=== PATIENT | female | born 2000 | race Caucasian/White ===

== ENCOUNTER 2019-01-28 15:35 | Emergency (ER) | payer SELFPAY ==
--- NOTE | 2019-01-28 16:28 | EDPHYS ---
Physician Documentation [facility] Name: Joana Aguirre Age: 19 yrs Sex: Female : 2000 Arrival Date: 01/28/2019 Time: 15:38 Bed DIS1 Private MD: ED Physician Andrea Mcgrath HPI: 01/28 16:26 This 19 yrs old Female presents to ER via Ambulatory with complaints of pm1 Insect Bite. 16:26 The patient's rash thought to be caused by insect bites. The rash is located on the pm1 right calf. The rash can be described as raised. Onset: The symptoms/episode began/occurred just prior to arrival. Associated signs and symptoms: Pertinent positives: burning sensation, Pain Pertinent negatives: difficulty breathing, fever, itching, nausea, swelling of lips, swelling of throat, swelling of tongue, vomiting, wheezing. Severity of symptoms: in the emergency department the symptoms have improved markedly. Treatment given at home: None. The patient has not experienced similar symptoms in the past. It is unknown whether or not the patient has recently seen a physician. Presenting with friend that was also bitten by asp. 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 - Social history:: Smoking status: Patient/guardian denies using tobacco. - Ebola Screening: : Patient negative for fever greater than or equal to 101.5 degrees Fahrenheit, and additional compatible Ebola Virus Disease symptoms Patient denies exposure to infectious person Patient denies travel to an Ebola-affected area in the 21 days before illness onset No symptoms or risks identified at this time. ROS: 16:26 Constitutional: Negative for fever, chills, and weight loss, Eyes: Negative for injury, pm1 pain, redness, and discharge, ENT: Negative for injury, pain, and discharge, Neck: Negative for injury, pain, and swelling, Cardiovascular: Negative for chest pain, palpitations, and edema, Respiratory: Negative for shortness of breath, cough, wheezing, and pleuritic chest pain, Abdomen/GI: Negative for abdominal pain, nausea, vomiting, diarrhea, and constipation, Back: Negative for injury and pain, MS/Extremity: Negative for injury and deformity. 16:26 Neuro: Negative for headache, weakness, numbness, tingling, and seizure. 16:26 Skin: Positive for rash, of the right calf, Negative for cellulitis. Exam: 16:26 Constitutional: This is a well developed, well nourished patient who is awake, alert, pm1 and in no acute distress. Head/Face: Normocephalic, atraumatic. Eyes: Pupils equal round and reactive to light, extra-ocular motions intact. Lids and lashes normal. Conjunctiva and sclera are non-icteric and not injected. Cornea within normal limits. Periorbital areas with no swelling, redness, or edema. ENT: Nares patent. No nasal discharge, no septal abnormalities noted. Tympanic membranes are normal and external auditory canals are clear. Oropharynx with no redness, swelling, or masses, exudates, or evidence of obstruction, uvula midline. Mucous membranes moist. Neck: Trachea midline, no thyromegaly or masses palpated, and no cervical lymphadenopathy. Supple, full range of motion without nuchal rigidity, or vertebral point tenderness. No Meningismus. Chest/axilla: Normal chest wall appearance and motion. Nontender with no deformity. No lesions are appreciated. Cardiovascular: Regular rate and rhythm with a normal S1 and S2. No gallops, murmurs, or rubs. Normal PMI, no JVD. No pulse deficits. Respiratory: Lungs have equal breath sounds bilaterally, clear to auscultation and percussion. No rales, rhonchi or wheezes noted. No increased work of breathing, no retractions or nasal flaring. Back: No spinal tenderness. No costovertebral tenderness. Full range of motion. 16:26 MS/ Extremity: Pulses equal, no cyanosis. Neurovascular intact. Full, normal range of motion. 16:26 Skin: Appearance: normal except for affected area, lesion(s), probable a wheal is noted, located on the right calf. 16:26 Neuro: Orientation: is normal, Motor: is normal, moves all fours. Vital Signs: 15:53 BP 112 / 78; Pulse 78; Resp 18; Temp 98.2; Pulse Ox 100% ; Pain 4/10; sg MDM: 16:22 Patient medically screened. pm1 16:26 Data reviewed: vital signs. Data interpreted: Pulse oximetry: on room air is 100 %. pm1 Interpretation: normal. Counseling: I had a detailed discussion with the patient and/or guardian regarding: the historical points, exam findings, and any diagnostic results supporting the discharge/admit diagnosis, to return to the emergency department if symptoms worsen or persist or if there are any questions or concerns that arise at home. Administered Medications: No medications were administered Disposition: 01/29 09:07 Co-signature as Attending Physician, Andrea Mcgrath MD I agree with the assessment and kdr plan of care. Disposition: 01/28/19 16:27 Discharged to Home. Impression: Insect bite (nonvenomous), right lower leg. - Condition is Stable. - Discharge Instructions: Insect Bite. - Medication Reconciliation Form, Thank You Letter, Antibiotic Education, Prescription Opioid Use form. - Follow up: Emergency Department; When: As needed; Reason: Worsening of condition. Follow up: Private Physician; When: 2 - 3 days; Reason: Recheck today's complaints, Continuance of care, Re-evaluation by your physician. - Problem is new. - Symptoms have improved. Signatures: Fredy Garza RN RN sg Andrea Mcgrath MD MD kdr Rachelle Murray RN RN iw Marlon Krishnan NP EMAIL MARKETING INTERN pm1 Corrections: (The following items were deleted from the chart) 01/28 16:33 16:27 01/28/2019 16:27 Discharged to Home. Impression: Insect bite (nonvenomous), right iw lower leg. Condition is Stable. Forms are Medication Reconciliation Form, Thank You Letter, Antibiotic Education, Prescription Opioid Use. Follow up: Emergency Department; When: As needed; Reason: Worsening of condition. Follow up: Private Physician; When: 2 - 3 days; Reason: Recheck today's complaints, Continuance of care, Re-evaluation by your physician. Problem is new. Symptoms have improved. pm1
--- NOTE | 2019-01-28 16:28 | ER ---
Nurse's Notes [facility] Name: Joana Aguirre Age: 19 yrs Sex: Female : 2000 Arrival Date: 01/28/2019 Time: 15:38 Bed DIS1 Private MD: Diagnosis: Insect bite (nonvenomous), right lower leg Presentation: 01/28 15:38 Presenting complaint: Patient states: I think I was stung by an Asp too, I have pain sg and burning but I did not see the bug. Transition of care: patient was not received from another setting of care. Onset of symptoms was January 28, 2019. Risk Assessment: Do you want to hurt yourself or someone else? Patient reports no desire to harm self or others. Initial Sepsis Screen: Does the patient meet any 2 criteria? No. Patient's initial sepsis screen is negative. Does the patient have a suspected source of infection? No. Patient's initial sepsis screen is negative. Care prior to arrival: None. 15:38 Method Of Arrival: Ambulatory sg 15:38 Acuity: RICH 4 sg 15:54 Note pain to right calf. 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 - Social history:: Smoking status: Patient/guardian denies using tobacco. - Ebola Screening: : Patient negative for fever greater than or equal to 101.5 degrees Fahrenheit, and additional compatible Ebola Virus Disease symptoms Patient denies exposure to infectious person Patient denies travel to an Ebola-affected area in the 21 days before illness onset No symptoms or risks identified at this time. Screenin:10 Abuse screen: Denies threats or abuse. Denies injuries from another. Nutritional iw screening: No deficits noted. Tuberculosis screening: No symptoms or risk factors identified. Fall Risk None identified. Assessment: 16:10 General: Appears in no apparent distress. Behavior is calm, cooperative. Pain: Denies iw pain. Neuro: Level of Consciousness is awake, alert, obeys commands, Oriented to person, place, time, situation, Moves all extremities. Full function. Cardiovascular: Patient's skin is warm and dry. Respiratory: Respiratory effort is even, unlabored, Respiratory pattern is regular, symmetrical. Derm: Skin is intact, is healthy with good turgor, Skin is pink, warm \T\ dry. normal. Musculoskeletal: Range of motion: intact in all extremities. Vital Signs: 15:53 BP 112 / 78; Pulse 78; Resp 18; Temp 98.2; Pulse Ox 100% ; Pain 4/10; sg ED Course: 15:38 Patient arrived in ED. mr 15:39 Triage completed. sg 15:39 Arm band placed on. sg 15:40 Patient has correct armband on for positive identification. iw 15:51 Rachelle Murray RN is Primary Nurse. 15:53 Chip Prater PA is PHCP. [facility] 15:53 Andrea Mcgrath MD is Attending Physician. [facility] 16:10 No provider procedures requiring assistance completed. Patient did not have IV access iw during this emergency room visit. 16:11 PHCP role handed off by Chip Prater PA pm1 16:11 Marlon Krishnan NP is PHCP. pm1 Administered Medications: No medications were administered Outcome: 16:27 Discharge ordered by MD. pm1 16:32 Discharged to home ambulatory, with family. iw 16:32 Condition: good 16:32 Discharge instructions given to patient, Instructed on discharge instructions, follow up and referral plans. Demonstrated understanding of instructions, follow-up care. 16:33 Patient left the ED. iw Signatures: Fredy Garza RN RN Chip Prater PA PA [facility] DavidMarsha Racehlle Murray RN RN Marlon Krishnan NP BAR HOSTESS pm1
[2019-01-28 18:32] VITALS: BP 112/78; TEMP 98.2; O2SAT 100
== END 2019-01-28 16:33 | disposition home or self-care (01) ==
LOC: ER 15:35
DX: S80.861A Insect bite (nonvenomous), right lower leg, initial encounter (principal)
CPT/HCPCS: 99281

== ENCOUNTER 2019-03-28 23:52 | Emergency (ER) | payer SELFPAY ==
--- OUTSIDE RECORDS SUMMARY | 2019-03-28 23:55 | XMS REPORT ---
:2000 [facility] Address [address] [place] [address] Care Team Providers Name Role Phone UNKNOWN, REFFERING Primary Care Provider Unavailable SVETLANA ELIZALDE Unavailable Unavailable Problems This patient has no known problems. Allergies, Adverse Reactions, Alerts This patient has no known allergies or adverse reactions. Medications This patient has no known medications. Encounters Start End Encounter Admission Attending Care Care Encounter Date/Time Date/Time Type Type Clinicians Facility Department ID 2018-08-09 2018-08-[address] [facility] [id number] 20:42:00 20:42:00 2018-08-09 2018-08-09 Emergency [facility] [id number] 14:50:00 14:50:00 2017-11-02 2017-11-[address] [facility] [id number] 13:39:00 13:39:00 2016-11-13 2016-11-13 Emergency [facility] [id number] 12:25:00 12:25:00 2012-03-03 2012-03-03 Outpatient [facility] [id number] 07:35:53 07:35:53 Results Test Description Test Time Test Comments Text Results Atomic Results Result Comments CT Abdomen and Pelvis 2017-07-27 10:21:19 Patient: [facility] [place] w/ Contrast Date/Time07/27/2017 10:00 CDTReason for ExamAbdominal painReportCT OF THE ABDOMEN AND PELVIS WITH CONTRASTLocation R 16HISTORY: Abdominal painTECHNIQUE:5 millimeters contrast enhanced axial images of the abdomen and pelvis provided in venous delays. No PO contrast was administered. The images were reviewed in soft tissue, lung and bone windows. Sagittal and coronal images were reformatted. One or more the following dose reduction techniques is utilized: Use of iterative reconstruction, automated exposure control, adjustment of the mAs and Kv for the patient's weight. DLP 514.1mGy-cm. Estimated dose savings 29%.COMPARISON: None.CT abdomen and pelvis dated 10/13/2017FINDINGS:Lung Bases: No significant abnormality.Abdomen findings:Liver: No significant abnormality.Gallbladder: No significant abnormality.Pancreas: No significant abnormality.Spleen: No significant abnormality.Kidneys: No significant abnormality.Adrenals: No significant abnormality.Bowel: No significant abnormality. No dilated bowel loops or areas of bowel wall thickening.Appendix: Well identified and normal.Pelvis findings:Bladder: No significant abnormality.Uterus: No significant abnormality.Adnexal regions: No significant abnormality.Osseous: Note of a partially sacralized L5 on the right. Osseous structures are otherwise unremarkable. Vascular: Vascular structures enhance normally.Lymph nodes: No evidence of lymphadenopathy in the abdomen and pelvis.IMPRESSION:Exam Date/Time07/27/2017 10:00 CDTReportNo acute intra-abdominal findings. Normal right lower quadrant appendix. No free air or free fluid. Final Dictated by: MD Amira, Radha FDictated DT/TM: 07/27/2017 10:16 amSigned by: MD Collier Eniola FSigned (Electronic Signature): 07/27/2017 10:21 am [id number]&PELVIS W/CONTRAST 2016-10-13 06:43:42 CT OF THE ABDOMEN AND PELVIS WITH CONTRASTHISTORY: PainTECHNIQUE:5 millimeters contrast enhanced axial images of the abdomen and pelviswere performed with venous delays. The images were reviewed in softtissue, lung and bone windows. 2 mm coronal images were reformatted. 100mL of Isovue 370 is given IV. The GFR is greater than 60COMPARISON: CT abdomen pelvis, 10/04/2016FINDINGS:Abdomen findings: The liver, adrenals, spleen, pancreas, gallbladder, kidneys and lungwindows are unremarkable.Pelvis findings: The distal ureters, bladder , uterus, adnexa , appendix andremainder of the bowel are unremarkable. Bone windows are normal.IMPRESSION:Unremarkable exam. No acute findings. Urinalysis Complete 2016-10-13 05:48:00 Test Item Value Reference Range Comments Color (test code=COLOR) [place] Yellow,Straw,Pl yellow Clarity (test code=CLAR) Clear Clear Specific [place] (test code=SPGR) 1.032 1.001-1.035 pH (test code=PH) 5.0 5.0-9.0 Ketone (test code=KET) 5 mg/dL Negative Glucose (test code=GLUCUR) Negative mg/dL Negative Protein (test code=PROT) 75 mg/dL Negative Bilirubin (test code=BILI) See IctoTest mg/dL Negative Occult Blood (test code=UDOB) Large Negative Urobilinogen (test code=UROB) 1.0 mg/dL 0.2-1.0 Nitrite (test code=NIT) Negative Negative Leuk Esterase (test code=LEUK) Small Negative Ictotest (test code=ICTOTEST) Confirmed Negative Negative,Confirmed Negative Micros Exam (test code=MEXAM) Indicated Epithelial Cells (test code=EPI) 15-19 /LPF 0-30 WBC, Urine (test code=UWBC) 2-5 /HPF 0-5 RBC, Urine (test code=URBC) None Seen /HPF 0-5 Bacteria (test code=BACT) Few /HPF CBC with [id number] 05:42:00 Test Item Value Reference Range Comments WBC (test code=WBC) 7.1 K/cumm 4.4-10.5 RBC (test code=RBC) 4.36 M/cumm 3.75-5.20 Hemoglobin (test code=HGB) 12.8 gm/dL 12.2-14.8 Hematocrit (test code=HCT) 38.2 % 36.5-44.4 MCV (test code=MCV) 87.7 fL 80-100 MCH (test code=MCH) 29.4 pg 27.0-32.5 MCHC (test code=MCHC) 33.5 g/dL 32.0-37.5 RDW (test code=RDW) 14.6 % 11.5-14.5 Platelet Count (test code=PLTCT) 269 K/cumm 140-440 MPV (test code=MPV) 8.4 fL Diff Method (test code=DIFFM) Auto Neutrophil (test code=NEUT) 51.1 % 36-70 Lymphocyte (test code=LYMPH) 36.0 % 12-44 Monocyte (test code=MONO) 9.0 % 0-11 Eosinophil (test code=EOS) 3.3 % 0-7 Basophil (test code=BASO) 0.5 % 0-2 Neutro Abs (test code=ANEUT) 3.6 K/cumm 1.6-7.4 Lymph Abs (test code=ALYMPH) 2.6 K/cumm 0.5-4.6 Vermillion Abs (test code=AMONO) 0.6 K/cumm 0.0-1.2 Eos Abs (test code=AEOS) 0.24 K/cumm 0.00-0.74 Baso Abs (test code=ABASO) 0.0 K/cumm 0.00-0.21 BHCG, Serum, [id number] 05:28:00 Test Item Value Reference Range Comments Preg Qual [Se] (test code=BSHCG) Negative Negative Comprehensive Metabolic [id number] 05:28:00 Test Item Value Reference Range Comments Sodium (test code=NA) 141 mmol/L 135-145 Potassium (test code=K) 3.8 mmol/L 3.5-5.1 Chloride (test code=CL) 104 mmol/L 98-105 Carbon Dioxide (test 22 mmol/L 22-29 code=CO2) Glucose (test code=GLU) 86 mg/dL 70-115 Blood Urea Nitrogen 17 mg/dL 6-20 (test code=BUN) Creatinine (test 0.9 mg/dL 0.5-0.9 code=CREAT) Calcium (test code=CA) 9.2 mg/dL 8.3-10.5 Prot Total (test 7.6 g/dL 6.4-8.3 code=TP) Albumin (test code=ALB) 4.4 g/dL 3.5-5.2 A/G Ratio (test 1.4 Ratio code=AGRATIO) Globulin (test 3.2 2.9-3.1 code=GLOB) Bili Total (test 0.5 mg/dL 0.1-0.9 code=TBIL) Alk Phos (test 48 U/L 35-104 code=APHOS) AST (test code=AST) 17 U/L 1-32 ALT (test code=ALT) 15 U/L 1-33 BUN/Creatinine Ratio 18.9 (test code=BCRATIO) Anion Gap (test 15 mmol/L 7-16 code=AGAP) Estimated GFR (test >60 mL/min/1.73m2 eGFR (estimated Glomerular code=GFR) Filtration Rate) is an estimated value,calculated from the patient's serum creatinine using the MDRD equation.It is NOT the patient's actual GFR. The eGFR provides a more clinicallyuseful measure of kidney disease than serum creatinine alone.This calculation takes sex and race into account, if the informationis provided. If the race is not provided, and the patient isAfrican-Libyan, multiply by 1.212. If sex is not provided, and thepatient is female, multiply by 0.742. Results for patients <18 years ofage have not been validated by the MDRD study and should be interpretedwith caution.eGFR Result Interpretation:eGFR > or=60 is in the Normal RangeeGFR < 60 may mean kidney diseaseeGFR < 15 may mean kidney failureRanges recommended by the National Kidney Foundation,http://nkdep.nih .gov [id number] 05:24:00 Test Item Value Reference Range Comments Lipase (test code=LIP) 25 U/L 13-60 09732& PELVIS W/O [id number] 20:05:31LOCATION: S 17HISTORY: 16-year -old female who presents with abdominal pain.COMMENT: Axial CT imaging of this patient's abdomen and pelvis was obtained fromthe diaphragm to the pelvic floor withoutIV contrast. Coronal andsagittal soft tissue reconstructions were included. One or more of the following dose reduction techniques were used: Automated exposure control, adjustment of the mA and/or kV according thepatient size, and/or utilization of iterative reconstruction technique.DLP: 851.9 mGy- cmCONTRAST: NoneFINDINGS:The visualized lung bases are clear. The cardiac silhouette isunremarkable.The liver, spleen, pancreas, adrenal glands, kidneys, and gallbladderare unremarkable in this unenhanced CT study.The upper intestinal tract down the small intestine are unremarkable. Anormal-appearing appendix is seen. The colon is unremarkable.There is no ascites or adenopathy present in the abdomen or in thepelvis.In the pelvis the left ovary is enlarged and cystic measuring 5 cm indiameter. The uterus and right ovary are unremarkable and the urinarybladder is unremarkable.The vascular anatomy is unremarkable.The musculoskeletal anatomy is unremarkable.IMPRESSION:This patient 's left ovary is enlarged and cystic. Pelvic ultrasoundcorrelation is suggested.Otherwise the appearance of this patient's abdomen and pelvis in thisunenhanced CT study is unremarkable.Urinalysis [id number] 19:34:00 Test Item Value Reference Range Comments Color (test code=COLOR) Yellow Yellow,Straw,Pl yellow Clarity (test code=CLAR) Clear Clear Specific [place] (test code=SPGR) 1.023 1.001-1.035 pH (test code=PH) 8.0 5.0-9.0 Ketone (test code=KET) 15 mg/dL Negative Glucose (test code=GLUCUR) Negative mg/dL Negative Protein (test code=PROT) Negative mg/dL Negative Bilirubin (test code=BILI) Negative mg/dL Negative Occult Blood (test code=UDOB) Negative Negative Urobilinogen (test code=UROB) 1.0 mg/dL 0.2-1.0 Nitrite (test code=NIT) Negative Negative Leuk Esterase (test code=LEUK) Small Negative Micros Exam (test code=MEXAM) Indicated Epithelial Cells (test code=EPI) 10-14 /LPF 0-30 WBC, Urine (test code=UWBC) 0-1 /HPF 0-5 RBC, Urine (test code=URBC) None Seen /HPF 0-5 Bacteria (test code=BACT) Few /HPF Comprehensive Metabolic [id number] 19:16:00 Test Item Value Reference Range Comments Sodium (test code=NA) 138 mmol/L 135-145 Potassium (test code=K) 4.4 mmol/L 3.5-5.1 HEMOLYZED Chloride (test code=CL) 105 mmol/L 98-105 Carbon Dioxide (test 18 mmol/L 22-29 code=CO2) Glucose (test code=GLU) 78 mg/dL 70-115 Blood Urea Nitrogen 11 mg/dL 6-20 (test code=BUN) Creatinine (test 0.7 mg/dL 0.5-0.9 code=CREAT) Calcium (test code=CA) 8.8 mg/dL 8.3-10.5 Prot Total (test 6.9 g/dL 6.4-8.3 code=TP) Albumin (test code=ALB) 4.2 g/dL 3.5-5.2 A/G Ratio (test 1.6 Ratio code=AGRATIO) Globulin (test 2.7 2.9-3.1 code=GLOB) Bili Total (test 0.5 mg/dL 0.1-0.9 code=TBIL) Alk Phos (test 41 U/L 35-104 code=APHOS) AST (test code=AST) 33 U/L 1-32 HEMOLYZED ALT (test code=ALT) 20 U/L 1-33 BUN/Creatinine Ratio 15.7 (test code=BCRATIO) Anion Gap (test 15 mmol/L 7-16 code=AGAP) Estimated GFR (test >60 mL/min/1.73m2 eGFR (estimated Glomerular code=GFR) Filtration Rate) is an estimated value,calculated from the patient's serum creatinine using the MDRD equation.It is NOT the patient's actual GFR. The eGFR provides a more clinicallyuseful measure of kidney disease than serum creatinine alone.This calculation takes sex and race into account, if the informationis provided. If the race is not provided, and the patient isAfrican-Libyan, multiply by 1.212. If sex is not provided, and thepatient is female, multiply by 0.742. Results for patients <18 years ofage have not been validated by the MDRD study and should be interpretedwith caution.eGFR Result Interpretation:eGFR > or=60 is in the Normal RangeeGFR < 60 may mean kidney diseaseeGFR < 15 may mean kidney failureRanges recommended by the National Kidney Foundation,http://nkdep.nih .gov [id number] 19:16:00 Test Item Value Reference Range Comments Lipase (test code=LIP) 24 U/L 13-60 BHCG, Serum, [id number] 19:10:00 Test Item Value Reference Range Comments Preg Qual [Se] (test code=BSHCG) Negative Negative CBC with [id number] 18:53:00 Test Item Value Reference Range Comments WBC (test code=WBC) 8.1 K/cumm 4.4-10.5 RBC (test code=RBC) 4.00 M/cumm 3.75-5.20 Hemoglobin (test code=HGB) 12.3 gm/dL 12.2-14.8 Hematocrit (test code=HCT) 34.4 % 36.5-44.4 MCV (test code=MCV) 86.1 fL 80-100 MCH (test code=MCH) 30.7 pg 27.0-32.5 MCHC (test code=MCHC) 35.6 g/dL 32.0-37.5 RDW (test code=RDW) 12.8 % 11.5-14.5 Platelet Count (test code=PLTCT) 184 K/cumm 140-440 MPV (test code=MPV) 7.8 fL Diff Method (test code=DIFFM) Auto Neutrophil (test code=NEUT) 70.5 % 36-70 Lymphocyte (test code=LYMPH) 22.6 % 12-44 Monocyte (test code=MONO) 4.2 % 0-11 Eosinophil (test code=EOS) 2.4 % 0-7 Basophil (test code=BASO) 0.3 % 0-2 Neutro Abs (test code=ANEUT) 5.7 K/cumm 1.6-7.4 Lymph Abs (test code=ALYMPH) 1.8 K/cumm 0.5-4.6 Vermillion Abs (test code=AMONO) 0.3 K/cumm 0.0-1.2 Eos Abs (test code=AEOS) 0.19 K/cumm 0.00-0.74 Baso Abs (test code=ABASO) 0.0 K/cumm 0.00-0.21 Urinalysis [id number] 18:49:00 Test Item Value Reference Range Comments Color (test code=COLOR) [place] Yellow,Straw,Pl yellow Clarity (test code=CLAR) Sl Cloudy Clear Specific [place] (test 1.012 1.001-1.035 code=SPGR) pH (test code=PH) 5.0 5.0-9.0 Ketone (test code=KET) Negative mg/dL Negative Glucose (test code=GLUCUR) Negative mg/dL Negative Protein (test code=PROT) 75 mg/dL Negative Bilirubin (test code=BILI) See IctoTest mg/dL Negative Occult Blood (test code=UDOB) Large Negative Urobilinogen (test code=UROB) 1.0 mg/dL 0.2-1.0 Nitrite (test code=NIT) Positive Negative Leuk Esterase (test code=LEUK) Large Negative Ictotest (test code=ICTOTEST) Confirmed Negative Negative,Confirmed Negative Micros Exam (test code=MEXAM) Indicated Epithelial Cells (test 3-5 /LPF 0-30 code=EPI) WBC, Urine (test code=UWBC) 31-40 /HPF 0-5 RBC, Urine (test code=URBC) 3-5 /HPF 0-5 Bacteria (test code=BACT) Few /HPF BHCG, Urine, [id number] 18:48:00 Test Item Value Reference Range Comments Preg Qual [Ur] (test code=HUHCG) Negative Negative
[2019-03-29 01:23] LABS: Absolute Lymphocytes (CBC) 2.8 K/uL (0.7-4.9); Basophils % 0.6 % (0-1.3); Lymphocytes % 37.6 % (15.3-44.8); RBC Red Blood Cell Count 4.11 M/uL (3.86-4.86)
[2019-03-29 01:35] LABS: BUN Blood Urea Nitrogen 18 mg/dL (7-18); Bicarbonate 25 mmol/L (21-32); Glucose Level 89 mg/dL (74-106); Potassium 4.2 mmol/L (3.5-5.1); Sodium Level 142 mmol/L (136-145)
[2019-03-29 02:01] LABS: HCG, Quantitative < 1 mIU/mL (1-3)
--- NOTE | 2019-03-29 02:13 | ER ---
Nurse's Notes [facility] [place] Name: Joana Aguirre Age: 19 yrs Sex: Female : 2000 Arrival Date: 03/28/2019 Time: 23:54 Bed 14 Private MD: Diagnosis: Irregular menstruation, unspecified Presentation: 03/28 23:55 Presenting complaint: Patient states: that she was sitting down watching tv and started fc to have severe lower pelvic pain. Went to bathroom and when she wiped she noted blood. Inserted a tampon. Transition of care: patient was not received from another setting of care. Onset of symptoms was March 28, 2019 at 23:45. Risk Assessment: Do you want to hurt yourself or someone else? Patient reports no desire to harm self or others. Initial Sepsis Screen:. Care prior to arrival: None. 23:55 Method Of Arrival: Wheelchair 23:55 Acuity: RICH 3 fc 03/29 00:00 Initial Sepsis Screen: Does the patient meet any 2 criteria? No. Patient's initial jv1 sepsis screen is negative. Does the patient have a suspected source of infection? No. Patient's initial sepsis screen is negative. Triage Assessment: 02:47 General: Behavior is calm, cooperative, appropriate for age. 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 - Coronavirus screen:: The patient has NOT traveled to [place], [place], or [place] in the past 14 days. The patient has NOT had contact with known/suspected case of Coronavirus?. - Social history:: Smoking status: Patient reports the use of cigarette tobacco products, smokes one-half pack cigarettes per day, Patient/guardian denies using alcohol, street drugs. - Ebola Screening: : Patient negative for fever greater than or equal to 101.5 degrees Fahrenheit, and additional compatible Ebola Virus Disease symptoms Patient denies exposure to infectious person Patient denies travel to an Ebola-affected area in the 21 days before illness onset. Screenin:11 Abuse screen: Denies threats or abuse. Nutritional screening: No deficits noted. fc Tuberculosis screening: No symptoms or risk factors identified. Fall Risk None identified. Assessment: 00:15 General: Appears in no apparent distress. uncomfortable, unkempt. Pain: Complains of jv1 pain in suprapubic area Pain does not radiate. Pain currently is 10 out of 10 on a pain scale. Quality of pain is described as aching, Pain began 3 hours ago. Neuro: Level of Consciousness is awake, alert, obeys commands, Oriented to person, place, time, situation. Cardiovascular: Denies chest pain, Heart tones S1 S2 Capillary refill < 3 seconds Pulses are all present. Respiratory: Airway is patent Breath sounds are clear bilaterally. GI: Abdomen is round non-distended, Bowel sounds present X 4 quads. Abd is soft and non tender. : Urine is clear, Reports vaginal bleeding that is moderate flow. EENT: No signs and/or symptoms were reported regarding the EENT system. Derm: Skin is intact, is healthy with good turgor. 01:30 Reassessment: Patient appears in no apparent distress at this time. Patient and/or jv1 family updated on plan of care and expected duration. Pain level reassessed. Patient is alert, oriented x 3, equal unlabored respirations, skin warm/dry/pink. pt calm, not crying anymore, conversing with family. Vital Signs: 03/28 23:55 Temp 97.8; Weight 83.01 kg (R); Height 5 ft. 4 in. (162.56 cm) (R); Pain 10/10; fc 23:55 BP 126 / 79; Pulse 61; Resp 20; Temp 97.8; Pulse Ox 99% ; Pain 10/; jv1 03/29 01:00 BP 115 / 75; Pulse 65; Resp 18; Temp 98; Pulse Ox 99% ; Pain 10/; jv1 02:00 BP 125 / 75; Pulse 68; Resp 18; Temp 98; Pulse Ox 99% ; Pain 10/; jv1 02:30 BP 118 / 60; Pulse 65; Resp 18; Temp 98; Pulse Ox 99% ; Pain 03/02; jv1 03/28 23:55 Body Mass Index 31.41 (83.01 kg, 162.56 cm) ED Course: 03/28 23:54 Patient arrived in ED. ag3 23:55 Arm band placed on Patient placed in an exam room, on a stretcher. fc 23:58 Stephanie Pierson FNP-C is [facility]. kb 23:58 Evan Toribio MD is Attending Physician. kb 03/29 00:10 Triage completed. fc 00:11 Patient has correct armband on for positive identification. Placed in gown. Bed in low fc position. Call light in reach. Pulse ox on. NIBP on. 02:47 No provider procedures requiring assistance completed. IV discontinued, intact, jv1 bleeding controlled, No redness/swelling at site. Pressure dressing applied. Administered Medications: 02:15 Drug: Zofran 4 mg Route: IVP; Site: right antecubital; jv1 02:46 Follow up: Response: No adverse reaction jv1 02:18 Drug: morphine 4 mg {Note: rass 0.} Route: IVP; Site: right antecubital; jv1 02:46 Follow up: Response: No adverse reaction; Pain is decreased jv1 Outcome: 02:12 Discharge ordered by . kb 02:48 Discharged to home ambulatory, with family, with significant other. jv1 02:48 Condition: improved 02:48 Discharge instructions given to patient, family, significant other, Instructed on discharge instructions, follow up and referral plans. medication usage, Demonstrated understanding of instructions, follow-up care, medications, Prescriptions given X 1. 02:50 Patient left the ED. jv1 Signatures: Stephanie Pierson FNP-C FNP-Ckb Chretien, Felicia RN RN Alyse Paris RN RN jv1 Nancy Stoddard ag3
--- NOTE | 2019-03-29 02:14 | EDPHYS ---
Physician Documentation [facility] Name: Joana Aguirre Age: 19 yrs Sex: Female : 2000 Arrival Date: 03/28/2019 Time: 23:54 Bed 14 Private MD: ED Physician Evan Toribio HPI: 03/29 00:07 This 19 yrs old Female presents to ER via Unassigned with complaints of kb Vaginal Bleeding. 00:07 The patient presents to the emergency department with abdominal pain, of the suprapubic kb area, that started 30 minute(s) ago, vaginal bleeding, that is moderate. course: care: none, Leakage of Fluid: none appreciated, Ultrasound: the patient has not had an ultrasound, Risk/complications: no obvious risks or complications are appreciated. Previous pregnancies: in previous pregnancies patient has had. Associated signs and symptoms: Pertinent positives: abdominal pain, vaginal bleeding, Pertinent negatives: chest pain, diarrhea, dysuria, fever, frequency, nausea, ruptured membranes, seizure, shortness of breath, vaginal discharge, vomiting. The patient has not experienced similar symptoms in the past. The patient has not recently seen a physician. 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 - Coronavirus screen:: The patient has NOT traveled to [place], [place], or [place] in the past 14 days. The patient has NOT had contact with known/suspected case of Coronavirus?. - Social history:: Smoking status: Patient reports the use of cigarette tobacco products, smokes one-half pack cigarettes per day, Patient/guardian denies using alcohol, street drugs. - Ebola Screening: : Patient negative for fever greater than or equal to 101.5 degrees Fahrenheit, and additional compatible Ebola Virus Disease symptoms Patient denies exposure to infectious person Patient denies travel to an Ebola-affected area in the 21 days before illness onset. ROS: 00:07 Constitutional: Negative for fever, chills, and weight loss, ENT: Negative for injury, kb pain, and discharge, Neck: Negative for injury, pain, and swelling, Cardiovascular: Negative for chest pain, palpitations, and edema, Respiratory: Negative for shortness of breath, cough, wheezing, and pleuritic chest pain, Back: Negative for injury and pain, MS/Extremity: Negative for injury and deformity, Skin: Negative for injury, rash, and discoloration, Neuro: Negative for headache, weakness, numbness, tingling, and seizure. 00:07 Abdomen/GI: Positive for abdominal pain. 00:07 : Positive for vaginal bleeding. Exam: 00:07 Constitutional: This is a well developed, well nourished patient who is awake, alert, kb and in no acute distress. Head/Face: Normocephalic, atraumatic. ENT: Nares patent. No nasal discharge, no septal abnormalities noted. Tympanic membranes are normal and external auditory canals are clear. Oropharynx with no redness, swelling, or masses, exudates, or evidence of obstruction, uvula midline. Mucous membranes moist. Neck: Trachea midline, no thyromegaly or masses palpated, and no cervical lymphadenopathy. Supple, full range of motion without nuchal rigidity, or vertebral point tenderness. No Meningismus. Chest/axilla: Normal chest wall appearance and motion. Nontender with no deformity. No lesions are appreciated. Cardiovascular: Regular rate and rhythm with a normal S1 and S2. No gallops, murmurs, or rubs. Normal PMI, no JVD. No pulse deficits. Respiratory: Lungs have equal breath sounds bilaterally, clear to auscultation and percussion. No rales, rhonchi or wheezes noted. No increased work of breathing, no retractions or nasal flaring. Back: No spinal tenderness. No costovertebral tenderness. Full range of motion. Skin: Warm, dry with normal turgor. Normal color with no rashes, no lesions, and no evidence of cellulitis. MS/ Extremity: Pulses equal, no cyanosis. Neurovascular intact. Full, normal range of motion. Neuro: Awake and alert, GCS 15, oriented to person, place, time, and situation. Cranial nerves II-XII grossly intact. Motor strength 5/5 in all extremities. Sensory grossly intact. Cerebellar exam normal. Normal gait. 00:07 Abdomen/GI: Inspection: abdomen appears normal, Bowel sounds: normal, in all quadrants, Palpation: soft, in all quadrants, moderate abdominal tenderness, in the suprapubic area. Vital Signs: 03/28 23:55 Temp 97.8; Weight 83.01 kg (R); Height 5 ft. 4 in. (162.56 cm) (R); Pain 10/10; fc 23:55 BP 126 / 79; Pulse 61; Resp 20; Temp 97.8; Pulse Ox 99% ; Pain 10/10; jv1 03/29 01:00 BP 115 / 75; Pulse 65; Resp 18; Temp 98; Pulse Ox 99% ; Pain 10/10; jv1 02:00 BP 125 / 75; Pulse 68; Resp 18; Temp 98; Pulse Ox 99% ; Pain 10/10; jv1 02:30 BP 118 / 60; Pulse 65; Resp 18; Temp 98; Pulse Ox 99% ; Pain 1/10; jv1 03/28 23:55 Body Mass Index 31.41 (83.01 kg, 162.56 cm) fc MDM: 03/28 23:58 Patient medically screened. kb 03/29 00:06 Data reviewed: vital signs, nurses notes. Data interpreted: Pulse oximetry: on room air kb is 100 %. Interpretation: normal. 02:11 Counseling: I had a detailed discussion with the patient and/or guardian regarding: the kb historical points, exam findings, and any diagnostic results supporting the discharge/admit diagnosis, lab results, the need for outpatient follow up, an OB/Gyne specialist, to return to the emergency department if symptoms worsen or persist or if there are any questions or concerns that arise at home. 03/29 00:05 Order name: Basic Metabolic Panel kb 03/29 00:05 Order name: CBC with Diff kb 03/29 00:43 Order name: Test, Serum kb 03/29 01:12 Order name: Urine Dipstick--Ancillary (enter results) [facility] 03/29 00:05 Order name: Urine Test (obtain specimen); Complete Time: 00:39 kb 03/29 01:12 Order name: Urine --Ancillary (enter results) [facility] 03/29 01:45 Order name: CBC with Automated Diff; Complete Time: 01:47 [facility] 03/29 02:03 Order name: Basic Metabolic Panel; Complete Time: 02:07 [facility] 03/29 02:03 Order name: HCG, Quantitative; Complete Time: 02:07 [facility] 03/29 02:24 Order name: ABO/RH typing [facility] 03/29 00:05 Order name: IV Saline Lock; Complete Time: 01:22 kb 03/29 00:05 Order name: Labs collected and sent; Complete Time: 01:22 kb 03/29 00:05 Order name: NPO kb 03/29 00:05 Order name: Urine Dipstick-Ancillary (obtain specimen); Complete Time: 01:22 kb Administered Medications: 02:15 Drug: Zofran 4 mg Route: IVP; Site: right antecubital; jv1 02:46 Follow up: Response: No adverse reaction jv1 02:18 Drug: morphine 4 mg {Note: rass 0.} Route: IVP; Site: right antecubital; jv1 02:46 Follow up: Response: No adverse reaction; Pain is decreased jv1 Disposition: 06:14 Co-signature as Attending Physician, Evan Toribio MD I agree with the assessment and tw4 plan of care. Disposition: 03/29/19 02:12 Discharged to Home. Impression: Irregular menstruation, unspecified. - Condition is Stable. - Discharge Instructions: Abnormal Uterine Bleeding, [id number]. - Prescriptions for Diclofenac Sodium 75 mg Oral Tablet, Delayed Release (E.C.) - take 1 tablet by ORAL route 2 times per day As needed; 30 tablet. - Medication Reconciliation Form, Thank You Letter, Antibiotic Education, Prescription Opioid Use form. - Follow up: Emergency Department; When: As needed; Reason: Worsening of condition. Follow up: Private Physician; When: 2 - 3 days; Reason: Recheck today's complaints, Continuance of care, Re-evaluation by your physician. Signatures: Dispatcher [employer] [facility] Stephanie Pierson FNP-C FNP-Ckb Chretien, Felicia, RN Evan Edwards MD MD tw4 Alyse Paris RN RN jv1 Corrections: (The following items were deleted from the chart) 02:50 02:12 03/29/2019 02:12 Discharged to Home. Impression: Irregular menstruation, jv1 unspecified. Condition is Stable. Forms are Medication Reconciliation Form, Thank You Letter, Antibiotic Education, Prescription Opioid Use. Follow up: Emergency Department; When: As needed; Reason: Worsening of condition. Follow up: Private Physician; When: 2 - 3 days; Reason: Recheck today's complaints, Continuance of care, Re-evaluation by your physician. kb
[2019-03-29] MEDS ORDERED: MORPHINE 4 MG/ML SYR ONE (02:20)
[2019-03-29] MEDS ORDERED: ONDANSETRON 4 MG/2 ML VIAL ONE (02:21)
[2019-03-29 08:16] LABS: Urine Blood 1+ (NEG); Urine Glucose NEGATIVE (NEG); Urine Protein NEGATIVE (NEG); Urine Specific Gravity >1.030 (1.005-1.030); Urine pH 5.5 (5.0-7.0)
[2019-03-29 09:28] VITALS: TEMP 98; O2SAT 99
[2019-03-29 09:33] VITALS: BP 118/60
== END 2019-03-29 02:50 | disposition home or self-care (01) ==
LOC: ER 23:52
DX: N92.6 Irregular menstruation, unspecified (principal)
CPT/HCPCS: 36415; 80048; 81003; 81025; 84702; 85025; 86900; 86901; 96374; 96375; 99283; J2405

== ENCOUNTER 2021-01-22 21:21 | Emergency (ER) | payer OTHER, SELFPAY ==
--- OUTSIDE RECORDS SUMMARY | 2021-01-22 21:31 | XMS REPORT | Continuity of Care Document ---
:2000 Author Organization [facility] t Address [address] [place]ino[place]. [address] [place] [id number] Care Team Providers Name Role Phone HERO DANISH Carr Primary Care Physician Unavailable Visit, Nurse Attending Clinician Unavailable Hero KINGSTON, R Attending Clinician Doctor Unassigned, Name Attending Clinician Unavailable All WHEELER, T Attending Clinician Unavailable Only, Db Test Attending Clinician Unavailable Moo HAILEP Attending Clinician Lilly MONAHAN Attending Clinician Unavailable Akinsipe WHCNP, C Attending Clinician JULIA, C Attending Clinician Unavailable Zuleima ORDONEZ Attending Clinician Miranda ORDONEZ Attending Clinician Malou ORDONEZ, M Attending Clinician Chel WHEELER, A Attending Clinician Unavailable Singer MORA Attending Clinician Ultrasound Attending Clinician Unavailable [place] ORDONEZ, F Attending Clinician Doug KINGSTON, F Attending Clinician FIDE Attending Clinician Unavailable FIDE Admitting Clinician Unavailable Payers Payer Name Policy Type Policy Number Effective Date Expiration Date Michael RHOADESS [id number] 2019 HEALTH 00:00:00 [place]ICAID OF [place] [id number] 2019 00:00:00 Problems Condition Condition Condition Status Onset Resolution Last Treating Co mments Source Name Details Category Date Date Treatment Clinician Date Routine Routine Disease Active Univers 5-24 it y of [place] [facility] Chorioamni Chorioamni Disease Active U nivers onitis onitis 06-26 ity of 00:00: [facility] Branch Pre-eclamp Pre-eclamp Disease Active U nivers katy in katy in 06-26 ity of third third 00:00: [place] trimester trimester 00 [facility] S/P S/P Disease Active Univers 06-26 ity of section section 00:00: [facility] Branch Obesity Obesity Disease Active Univers (BMI (BMI 5-02 ity of 30-39.9) 30-39.9) 00:00: [facility] 40 weeks 40 weeks Disease Active Unive rs gestation gestation 5-02 ity of of of 00:00: [place] [facility] Rubella Rubella Disease Active 2019-02 Overview: Univ ers non-immune non-immune 0-06 Formattin ity of status, status, 00:00: g of this [place] antepartum antepartum 00 note Me dical might be Branch different from the original. Address in PP. Maternal Maternal Disease Active 2019-02 Overview: Un consuelo varicella, varicella, 0-06 Formattin ity of non-immune non-immune 00:00: g of this [place] 00 note Medical might be Branch different from the original. Address in PP. Supervisio Supervisio Disease Active 2019-02 U nivers n of high n of high 0-06 ity of risk risk 00:00: [place] 00 [facility] in second in second Bran ch trimester trimester Obesity in Obesity in Disease Active 2019-02 U nivers 0-06 ity of 00:00: [place] 00 [facility] Primigravi Primigravi Disease Active 2019-02 U nivers da in da in 0-06 ity of second second 00:00: [place] trimester trimester 00 [facility] Nausea and Nausea and Disease Active 2019-02 U nivers vomiting vomiting 0-06 ity of during during 00:00: [place] 00 Medi yisel prior to prior to Branch 22 weeks 22 weeks gestation gestation No known No known Disease Unive rs active active ity of problems problems [facility] Allergies, Adverse Reactions, Alerts Allergy Allergy Status Severity Reaction(s) Onset Inactive Treating Comm ents Source Name Type Date Date Clinician NO KNOWN Drug Active Univers ALLERGIE Class ity of S [facility] Social History Social Habit Start Date Stop Date Quantity Comments Source ASSERTION 2019-09-30 University of 00:00:00 [facility] Exposure to Not sure University of SARS-CoV-2 [place] [facility] (event) Branch History [facility] University o f Alcohol Comment [place] Med ical Branch Alcohol intake 2020-09-15 2020-09-15 Lifetime University of 00:00:00 00:00:00 non-drinker [facility] (finding) [place] Tobacco use and 2020-08-04 2020-08-04 Never used Universit y of exposure 00:00:00 00:00:00 [place] [facility] Branch History SDOH 2019-11-26 2019-11-26 1 University o f Alcohol Frequency 00:00:00 00:00:00 [place] M edical Branch History SDOH 2019-11-26 2019-11-26 99 University o f Alcohol Std 00:00:00 00:00:00 [place] Medical Drinks Branch History [facility] 2019-11-26 2019-11-26 1 University o f Alcohol Binge 00:00:00 00:00:00 [place] Medic al Branch Tobacco Comment 2019-11-26 2019-11-26 2-3 cigarretes Unive rsity of 00:00:00 00:00:00 per day [facility] Sex Assigned At [birth year] Universit y of 00:00:00 00:00:00 [facility] Smoking Status Start Date Stop Date Source Current every day smoker 2020-08-04 00:00:00 Uni versity [facility] Current some day smoker 2020-07-14 00:00:00 Univ ersity [facility] Medications Ordered Filled Start Stop Current Ordering Indication Dosage Frequency Signature Comments Components Source Medication Medication Date Date Medication? Clinician (SIG) Name Name medroxyPROG 2020-02- No [id number] 150mg Univers ESTERone 0-18 10-18 ity of (DEPO-PROVE 20:28: 20:29 [place] RA) 00 :00 Medical injection Branch 150 mg medroxyPROG 2020-02- No [id number] 150mg 150 mg, Univers ESTERone 0-18 10-18 Intramuscu ity of (DEPO-PROVE 20:28: 20:29 lar, ONCE, [place] RA) 00 :00 1 dose, On Medical injection Mon Branch 150 mg 12/08/20 at 1530, Routine medroxyPROG 2020- No [id number] 150mg Univers ESTERone 09-15 ity of (DEPO-PROVE 22:30: 21:22 [place] RA) 00 :00 Medical injection Branch 150 mg medroxyPROG 2020- No [id number] 150mg 150 mg, Univers ESTERone 09-15 Intramuscu ity of (DEPO-PROVE 22:30: 21:22 lar, ONCE, [place] RA) 00 :00 1 dose, Medical injection Mon Branch 150 mg 09/15/20 at 1730, Routine HYDROCODONE Yes Take by Un consuelo -ACETAMINOP 6-14 mouth. ity of HEN ORAL 20:47: [address] HYDROCODONE Yes Take by Un consuelo -ACETAMINOP 6-14 mouth. ity of HEN ORAL 20:47: [address] HYDROCODONE 0 Yes Take by Un consuelo -ACETAMINOP 6-14 mouth. ity of HEN ORAL 20:47: [address] HYDROCODONE Yes Take by Un consuelo -ACETAMINOP 6-14 mouth. ity of HEN ORAL 20:47: [address] HYDROCODONE 0 Yes Take by Un consuelo -ACETAMINOP 6-14 mouth. ity of HEN ORAL 20:47: [address] HYDROCODONE 0 Yes Take by Un consuelo -ACETAMINOP 6-14 mouth. ity of HEN ORAL 20:47: [address] HYDROCODONE 2020-0 Yes Take by Un consuelo -ACETAMINOP 6-14 mouth. ity of HEN ORAL 20:47: [address] HYDROCODONE 2020-0 Yes Take by Un consuelo -ACETAMINOP 6-14 mouth. ity of HEN ORAL 20:47: [place] 27 Medical Branch HYDROCODONE Yes Take by Un consuelo -ACETAMINOP 6-14 mouth. ity of HEN ORAL 20:47: [address] Branch HYDROCODONE Yes Take by Un consuelo -ACETAMINOP 6-14 mouth. ity of HEN ORAL 20:47: [address] Branch HYDROCODONE Yes Take by Un consuelo -ACETAMINOP 6-14 mouth. ity of HEN ORAL 15:47: [address] Branch HYDROCODONE Yes Take by Un consuelo -ACETAMINOP 6-14 mouth. ity of HEN ORAL 15:47: [address] Branch HYDROCODONE Yes Take by Un consuelo -ACETAMINOP 6-14 mouth. ity of HEN ORAL 15:47: [address] Branch HYDROCODONE Yes Take by Un consuelo -ACETAMINOP 6-14 mouth. ity of HEN ORAL 15:47: [place] [address] Medical Branch Yes [id number] 1{tbl} Take 1 Univers vitamin 5-05 tablet by ity of w/FA tablet 00:00: mouth [place] 00 daily. Medical Branch docusate Yes [id number] 240mg Take 1 U nivers calcium 240 5-05 capsule by it y of mg capsule 00:00: mouth once [place] 00 daily as Medical needed for Branch Constipati on. ferrous Yes [id number] 325mg Take 1 Un consuelo sulfate 325 5-05 tablet by ity of mg (65 mg 00:00: mouth 2 [place] iron) 00 (two) Medical tablet times Branch daily. Yes [id number] 1{tbl} Take 1 Univers vitamin 5-05 tablet by ity of w/FA tablet 00:00: mouth [place] 00 daily. Medical Branch docusate Yes [id number] 240mg Take 1 U nivers calcium 240 5-05 capsule by it y of mg capsule 00:00: mouth once [place] 00 daily as Medical needed for Branch Constipati on. ferrous Yes [id number] 325mg Take 1 Un consuelo sulfate 325 5-05 tablet by ity of mg (65 mg 00:00: mouth 2 [place] iron) 00 (two) Medical tablet times Branch daily. Yes [id number] 1{tbl} Take 1 Univers vitamin 5-05 tablet by ity of w/FA tablet 00:00: mouth [place] 00 daily. Medical Branch docusate Yes [id number] 240mg Take 1 U nivers calcium 240 5-05 capsule by it y of mg capsule 00:00: mouth once [place] 00 daily as Medical needed for Branch Constipati on. ferrous Yes [id number] 325mg Take 1 Un consuelo sulfate 325 5-05 tablet by ity of mg (65 mg 00:00: mouth 2 [place] iron) 00 (two) Medical tablet times Branch daily. Yes [id number] 1{tbl} Take 1 Univers vitamin 5-05 tablet by ity of w/FA tablet 00:00: mouth [place] 00 daily. Medical Branch docusate Yes [id number] 240mg Take 1 U nivers calcium 240 5-05 capsule by it y of mg capsule 00:00: mouth once [place] 00 daily as Medical needed for Branch Constipati on. ferrous Yes [id number] 325mg Take 1 Un consuelo sulfate 325 5-05 tablet by ity of mg (65 mg 00:00: mouth 2 [place] iron) 00 (two) Medical tablet times Branch daily. Yes [id number] 1{tbl} Take 1 Univers vitamin 5-05 tablet by ity of w/FA tablet 00:00: mouth [place] 00 daily. Medical Branch docusate Yes [id number] 240mg Take 1 U nivers calcium 240 5-05 capsule by it y of mg capsule 00:00: mouth once [place] 00 daily as Medical needed for Branch Constipati on. ferrous Yes [id number] 325mg Take 1 Un consuelo sulfate 325 5-05 tablet by ity of mg (65 mg 00:00: mouth 2 [place] iron) 00 (two) Medical tablet times Branch daily. Yes [id number] 1{tbl} Take 1 Univers vitamin 5-05 tablet by ity of w/FA tablet 00:00: mouth [place] 00 daily. Medical Branch docusate Yes [id number] 240mg Take 1 U nivers calcium 240 5-05 capsule by it y of mg capsule 00:00: mouth once [place] 00 daily as Medical needed for Branch Constipati on. ferrous Yes [id number] 325mg Take 1 Un consuelo sulfate 325 5-05 tablet by ity of mg (65 mg 00:00: mouth 2 [place] iron) 00 (two) Medical tablet times Branch daily. Yes [id number] 1{tbl} Take 1 Univers vitamin 5-05 tablet by ity of w/FA tablet 00:00: mouth [place] 00 daily. Medical Branch docusate Yes [id number] 240mg Take 1 U nivers calcium 240 5-05 capsule by it y of mg capsule 00:00: mouth once [place] 00 daily as Medical needed for Branch Constipati on. ferrous Yes [id number] 325mg Take 1 Un consuelo sulfate 325 5-05 tablet by ity of mg (65 mg 00:00: mouth 2 [place] iron) 00 (two) Medical tablet times Branch daily. Yes [id number] 1{tbl} Take 1 Univers vitamin 5-05 tablet by ity of w/FA tablet 00:00: mouth [place] 00 daily. Medical Branch docusate Yes [id number] 240mg Take 1 U nivers calcium 240 5-05 capsule by it y of mg capsule 00:00: mouth once [place] 00 daily as Medical needed for Branch Constipati on. ferrous Yes [id number] 325mg Take 1 Un consuelo sulfate 325 5-05 tablet by ity of mg (65 mg 00:00: mouth 2 [place] iron) 00 (two) Medical tablet times Branch daily. Yes [id number] 1{tbl} Take 1 Univers vitamin 5-05 tablet by ity of w/FA tablet 00:00: mouth [place] 00 daily. Medical Branch docusate Yes [id number] 240mg Take 1 U nivers calcium 240 5-05 capsule by it y of mg capsule 00:00: mouth once [place] 00 daily as Medical needed for Branch Constipati on. ferrous Yes [id number] 325mg Take 1 Un consuelo sulfate 325 5-05 tablet by ity of mg (65 mg 00:00: mouth 2 [place] iron) 00 (two) Medical tablet times Branch daily. Yes [id number] 1{tbl} Take 1 Univers vitamin 5-05 tablet by ity of w/FA tablet 00:00: mouth [place] 00 daily. Medical Branch docusate Yes [id number] 240mg Take 1 U nivers calcium 240 5-05 capsule by it y of mg capsule 00:00: mouth once [place] 00 daily as Medical needed for Branch Constipati on. ferrous Yes [id number] 325mg Take 1 Un consuelo sulfate 325 5-05 tablet by ity of mg (65 mg 00:00: mouth 2 [place] iron) 00 (two) Medical tablet times Branch daily. Yes [id number] 1{tbl} Take 1 Univers vitamin 5-05 tablet by ity of w/FA tablet 00:00: mouth [place] 00 daily. Medical Branch docusate Yes [id number] 240mg Take 1 U nivers calcium 240 5-05 capsule by it y of mg capsule 00:00: mouth once [place] 00 daily as Medical needed for Branch Constipati on. ferrous Yes [id number] 325mg Take 1 Un consuelo sulfate 325 5-05 tablet by ity of mg (65 mg 00:00: mouth 2 [place] iron) 00 (two) Medical tablet times Branch daily. Yes [id number] 1{tbl} Take 1 Univers vitamin 5-05 tablet by ity of w/FA tablet 00:00: mouth [place] 00 daily. Medical Branch docusate Yes [id number] 240mg Take 1 U nivers calcium 240 5-05 capsule by it y of mg capsule 00:00: mouth once [place] 00 daily as Medical needed for Branch Constipati on. ferrous Yes [id number] 325mg Take 1 Un consuelo sulfate 325 5-05 tablet by ity of mg (65 mg 00:00: mouth 2 [place] iron) 00 (two) Medical tablet times Branch daily. Yes [id number] 1{tbl} Take 1 Univers vitamin 5-05 tablet by ity of w/FA tablet 00:00: mouth [place] 00 daily. Medical Branch docusate Yes [id number] 240mg Take 1 U nivers calcium 240 5-05 capsule by it y of mg capsule 00:00: mouth once [place] 00 daily as Medical needed for Branch Constipati on. ferrous Yes [id number] 325mg Take 1 Un consuelo sulfate 325 5-05 tablet by ity of mg (65 mg 00:00: mouth 2 [place] iron) 00 (two) Medical tablet times Branch daily. Yes [id number] 1{tbl} Take 1 Univers vitamin 5-05 tablet by ity of w/FA tablet 00:00: mouth [place] 00 daily. Medical Branch docusate Yes [id number] 240mg Take 1 U nivers calcium 240 5-05 capsule by it y of mg capsule 00:00: mouth once [place] 00 daily as Medical needed for Branch Constipati on. ferrous Yes [id number] 325mg Take 1 Un consuelo sulfate 325 5-05 tablet by ity of mg (65 mg 00:00: mouth 2 [place] iron) 00 (two) Medical tablet times Branch daily. Yes [id number] 1{tbl} Take 1 Univers vitamin 5-05 tablet by ity of w/FA tablet 00:00: mouth [place] 00 daily. Medical Branch docusate Yes [id number] 240mg Take 1 U nivers calcium 240 5-05 capsule by it y of mg capsule 00:00: mouth once [place] 00 daily as Medical needed for Branch Constipati on. ferrous Yes [id number] 325mg Take 1 Un consuelo sulfate 325 5-05 tablet by ity of mg (65 mg 00:00: mouth 2 [place] iron) 00 (two) Medical tablet times Branch daily. Yes [id number] 1{tbl} Take 1 Univers vitamin 5-05 tablet by ity of w/FA tablet 00:00: mouth [place] 00 daily. Medical Branch docusate Yes [id number] 240mg Take 1 U nivers calcium 240 5-05 capsule by it y of mg capsule 00:00: mouth once [place] 00 daily as Medical needed for Branch Constipati on. ferrous Yes [id number] 325mg Take 1 Un consuelo sulfate 325 5-05 tablet by ity of mg (65 mg 00:00: mouth 2 [place] iron) 00 (two) Medical tablet times Branch daily. Yes [id number] 1{tbl} Take 1 Univers vitamin 5-05 tablet by ity of w/FA tablet 00:00: mouth [place] 00 daily. Medical Branch docusate Yes [id number] 240mg Take 1 U nivers calcium 240 5-05 capsule by it y of mg capsule 00:00: mouth once [place] 00 daily as Medical needed for Branch Constipati on. ferrous Yes [id number] 325mg Take 1 Un consuelo sulfate 325 5-05 tablet by ity of mg (65 mg 00:00: mouth 2 [place] iron) 00 (two) Medical tablet times Branch daily. acetaminoph 2021- No [id number] 650mg Take 2 Univers en 5-05 05-06 tablets by ity of (TYLENOL) 00:00: 04:59 mouth [place] 325 mg 00 :00 every 6 Medical tablet (six) Branch hours as needed for Pain (scale 1-3). acetaminoph 2021- No [id number] 650mg Take 2 Univers en 5-05 05-06 tablets by ity of (TYLENOL) 00:00: 04:59 mouth [place] 325 mg 00 :00 every 6 Medical tablet (six) Branch hours as needed for Pain (scale 1-3). acetaminoph 2021- No [id number] 650mg Take 2 Univers en 5-05 05-06 tablets by ity of (TYLENOL) 00:00: 04:59 mouth [place] 325 mg 00 :00 every 6 Medical tablet (six) Branch hours as needed for Pain (scale 1-3). acetaminoph 2021- No [id number] 650mg Take 2 Univers en 5-05 05-06 tablets by ity of (TYLENOL) 00:00: 04:59 mouth [place] 325 mg 00 :00 every 6 Medical tablet (six) Branch hours as needed for Pain (scale 1-3). acetaminoph 2021- No [id number] 650mg Take 2 Univers en 5-05 05-06 tablets by ity of (TYLENOL) 00:00: 04:59 mouth [place] 325 mg 00 :00 every 6 Medical tablet (six) Branch hours as needed for Pain (scale 1-3). acetaminoph 2021- No [id number] 650mg Take 2 Univers en 5-05 05-06 tablets by ity of (TYLENOL) 00:00: 04:59 mouth [place] 325 mg 00 :00 every 6 Medical tablet (six) Branch hours as needed for Pain (scale 1-3). acetaminoph 2021- No [id number] 650mg Take 2 Univers en 5-05 05-06 tablets by ity of (TYLENOL) 00:00: 04:59 mouth [place] 325 mg 00 :00 every 6 Medical tablet (six) Branch hours as needed for Pain (scale 1-3). acetaminoph 2021- No [id number] 650mg Take 2 Univers en 5-05 05-06 tablets by ity of (TYLENOL) 00:00: 04:59 mouth [place] 325 mg 00 :00 every 6 Medical tablet (six) Branch hours as needed for Pain (scale 1-3). acetaminoph 2021- No [id number] 650mg Take 2 Univers en 5-05 05-06 tablets by ity of (TYLENOL) 00:00: 04:59 mouth [place] 325 mg 00 :00 every 6 Medical tablet (six) Branch hours as needed for Pain (scale 1-3). acetaminoph 2021- No [id number] 650mg Take 2 Univers en 5-05 05-06 tablets by ity of (TYLENOL) 00:00: 04:59 mouth [place] 325 mg 00 :00 every 6 Medical tablet (six) Branch hours as needed for Pain (scale 1-3). acetaminoph 2021- No [id number] 650mg Take 2 Univers en 5-05 05-06 tablets by ity of (TYLENOL) 00:00: 04:59 mouth [place] 325 mg 00 :00 every 6 Medical tablet (six) Branch hours as needed for Pain (scale 1-3). acetaminoph 2021- No [id number] 650mg Take 2 Univers en 5-05 05-06 tablets by ity of (TYLENOL) 00:00: 04:59 mouth [place] 325 mg 00 :00 every 6 Medical tablet (six) Branch hours as needed for Pain (scale 1-3). acetaminoph 2021- No [id number] 650mg Take 2 Univers en 5-05 05-06 tablets by ity of (TYLENOL) 00:00: 04:59 mouth [place] 325 mg 00 :00 every 6 Medical tablet (six) Branch hours as needed for Pain (scale 1-3). acetaminoph 2021- No [id number] 650mg Take 2 Univers en 5-05 05-06 tablets by ity of (TYLENOL) 00:00: 04:59 mouth [place] 325 mg 00 :00 every 6 Medical tablet (six) Branch hours as needed for Pain (scale 1-3). acetaminoph 2021- No [id number] 650mg Take 2 Univers en 5-05 05-06 tablets by ity of (TYLENOL) 00:00: 04:59 mouth [place] 325 mg 00 :00 every 6 Medical tablet (six) Branch hours as needed for Pain (scale 1-3). acetaminoph 2021- No [id number] 650mg Take 2 Univers en 5-05 05-06 tablets by ity of (TYLENOL) 00:00: 04:59 mouth [place] 325 mg 00 :00 every 6 Medical tablet (six) Branch hours as needed for Pain (scale 1-3). acetaminoph 2021- No [id number] 650mg Take 2 Univers en 5-05 05-06 tablets by ity of (TYLENOL) 00:00: 04:59 mouth [place] 325 mg 00 :00 every 6 Medical tablet (six) Branch hours as needed for Pain (scale 1-3). HYDROcodone 2020- No [id number] 1{tbl} Take 1 U nivers -acetaminop 5-05 05-13 tablet by it y of hen 5-325 00:00: 04:59 mouth [place] mg tablet 00 :00 every 6 Medical (six) Branch hours as needed (Pain scale above 4) for up to 7 days. Do not exceed 3 grams of acetaminop hen in 24 hours. Indication s: acute pain ibuprofen Yes 600mg 600 mg, Univ ers (IBU) 5-04 Oral, Q6H, ity of tablet 600 17:00: First dose [place] mg 00 (after Medical last Branch modificati on) on Tue06/24/20 at 1200, Until Discontinu ed, Routine rho(D) Yes 300ug 300 mcg, Univer s immune 5-04 Intramuscu ity of globulin 14:04: lar, ONCE, [place] as (RHOGAM) 16 For 1 Medical syringe 300 dose, Branch mcg Conditiona l, Routine diphenhydrA Yes 25mg 25 mg, IV U nivers MINE-0.9 % 5-04 Piggyback, ity of sod.chlr 14:02: Administer [place] as (BENADRYL) 04 over 30 Medica l 25 mg/50 mL Minutes, Bran ch piggyback Q6HPRN, 1 25 mg dose, Starting Tue06/24/20 at 0902, Until Discontinu ed, Routine, Itching diphenhydrA Yes 25mg 25 mg, Univ ers MINE 5-04 Oral, ity of (BENADRYL) 14:02: Q6HPRN, [place] tablet 25 04 Starting Medica l mg Tue06/24/20 Branch at 0902, Until Discontinu ed, Routine, Sleep, Itching ondansetron Yes 4mg 4 mg, Slow Univers (ZOFRAN 5-04 IV Push, ity of (PF)) 14:02: Q8HPRN, [place] injection 4 03 Starting Medi yisel mg Tue06/24/20 Branch at 0902, Until Discontinu ed, Routine, Nausea and Vomiting (N/V) bisacodyL Yes 10mg 10 mg, Univer s (DULCOLAX) 5-04 Rectal, ity of suppository 14:02: QDAILYPRN, [place] 10 mg 03 Starting Medical Tue06/24/20 Branch at 0902, Until Discontinu ed, Routine, Constipati on simethicone Yes 160mg 160 mg, Un consuelo (GAS RELIEF 5-04 Oral, ity of (SIMETHICON 14:02: PC+HSPRN, [place] E)) 03 Starting Medical chewable Tue06/24/20 Branc h tablet 160 at 0902, mg Until Discontinu ed, Routine, Gas docusate Yes 240mg 240 mg, Unive rs calcium 5-04 Oral, ity of (SURFAK) 14:02: QDAILYPRN, [place] capsule 240 03 Starting Medi yisel mg Tue06/24/20 Branch at 0902, Until Discontinu ed, Routine, Constipati on magnesium Yes 30mL 30 mL, Univer s hydroxide 5-04 Oral, ity of (MILK OF 14:02: QDAILYPRN, [place] MAGNESIA) 03 Starting Medica l 400 mg/5 mL Tue06/24/20 Br anch suspension at 0902, 30 mL Until Discontinu ed, Routine, Constipati on HYDROcodone Yes 1{tbl} [Order 1 Univers -acetaminop 5-04 Start] ity of hen (NORCO 13:12: Name: [place] 5) 5-325 mg 41 HYDROcodon Me dical tablet 1 e-acetamin Branc h tablet ophen (NORCO 5) 5-325 mg tablet 1 tablet Signed Summary: 1 tablet, Oral, Q6HPRN, Starting Tue06/24/20 at 0812, Until Discontinu ed, Routine, Pain (scale 4-6) [Order 1 End] [Order 2 Start] Name: HYDROcodon e-acetamin ophen (NORCO 5) 5-325 mg tablet 2 tablet Signed Summary: 2 tablet, Oral, Q6HPRN, Starting Tue06/24/20 at 0812, Until Discontinu ed, Routine, Pain (scale 7-10) [Order 2 End] ondansetron 2020- No Slow IV Un consuelo (ZOFRAN 06-24 05-04 Push, ONCE ity o f (PF)) 02:46: 03:20 INTRA [place] injection 00 :39 PROCEDURE, Medi yisel Starting Branch Tue06/23/20 at 2146, Until Tue06/23/20 at 2220, Routine, Intra-op PHENYLephri 2020- No Slow IV Un consuelo ne 1000 - 05-04 Push, ONCE ity o f mcg/10 mL 02:38: 03:20 INTRA [place] in 0.9% 00 :39 PROCEDURE, Medica l NaCl Starting Branch syringe Tue06/23/20 at 2138, Until Tue06/23/20 at 2220, Routine, Intra-op morpHINE PF 2020- No Intravenou Univers (DURAMORPH- 5- 05-04 s, ONCE ity of PF) 02:23: 03:20 INTRA [place] injection 00 :39 PROCEDURE, [facility] Starting Branch [facility] 06/23/20 at 2122, Until Discontinu ed, Routine, Intra-op LR 1000 mL 2020- No IV Univer s + oxytocin 06-24 Infusion, ity of 40 units 40 02:17: 03:20 CONTINUOUS [place] unit/ 1,000 00 :39 PRN, Medical mL IV Starting Branch Solution [facility] 06/23/20 at 2116, Until Discontinu ed, Routine, Intra-op FENTanyl PF 2020- No Intravenou Univers (SUBLIMAZE 06-24 s, ONCE ity o f (PF)) 02:17: 03:20 INTRA [place] injection 00 :39 PROCEDURE, [facility] Starting Branch [facility] 06/23/20 at 2116, Until Discontinu ed, Routine, Intra-op metroNIDAZO Yes 500mg 500 mg, IV Univers LE in NaCl 06-24 Piggyback, ity of (iso-os) 02:15: Q8H ABX, [place] (FLAGYL 00 First dose Medica l I.V.) RTU on [facility] IV infusion 06/23/20 at 500 mg 2114, Until Discontinu ed, 100 mL
Reas on for Anti-Infec tive: Surgical Prophylaxi s
Surgi yisel Prophylaxi s: MANAGER CHINESE
Duration of therapy: within 24 hours of surgery midazolam 2020- No IV Push, Uni vers (VERSED) 06-24 ONCE INTRA ity of injection 02:10: 03:20 PROCEDURE, [place] 00 :[address] [facility] 06/23/20 Branch at 2109, Until Discontinu ed, Routine, Intra-op succinylcho 2020- No IV Push, U nivers line 06-24-04 ONCE INTRA ity of (QUELICIN) 02:08: 03:20 PROCEDURE, [place] injection 00 :39 Starting Medica l [facility] 06/23/20 Branch at 2107, Until Discontinu ed, Routine, Intra-op propofoL IV 2020- No Intravenou Univers infusion 06-24 s, ONCE ity of 02:08: 03:20 INTRA [place] 00 :39 PROCEDURE, [facility] Starting Branch [facility] 06/23/20 at 2108, Until Discontinu ed, Routine, Intra-op lactated 2020- No Intravenou Un consuelo ringers IV 06-24- s, ity of infusion 02:01: 03:20 [place]OUS [place] 00 :[place] PRN, Medical Starting Branch 06/23/20 at 2101, Until Discontinu ed, Routine, Intra-op lidocaine 2020- No Epidural, [facility] [place] 2% + 06-24- CONTINUOUS ity of epinephrine 01:52: 03:20 PRN, [place] 1:1000 + 00 :39 Starting Medical fentanyl 50 Mon 06/23/20 Br anch mcg/mL at 2051, Until Tue06/23/20 at 2220, Routine, Intra-op FENTanyl 2 2020- No Intra-op [facility] [place] mcg/mL + 06-23 ity of bupivacaine 05:11: 03:20 [place] 0.1% in NS 00 :39 Medical 250 mL Branch epidural bag lidocaine-e 2020- No Intraderma Univers pinephrine 06-23- l, ONCE ity o f (XYLOCAINE 05:07: 03:20 INTRA [place] W/EPINEPHRI 00 :39 PROCEDURE, Me dical NE) 1.5 Starting Branch %-1:200,000 06/23/20 injection at 0007, Until Discontinu ed, Routine, Intra-op lidocaine 2020- No Infiltrati U nivers 1% 06-23- on, ONCE ity of (XYLOCAINE) 05:06: 03:20 [place] 100 mg/10 00 :39 PROCEDURE, Medi yisel mL (1 %) Starting Branch injection 06/23/20 at 0006, Until Discontinu ed, Routine, Intra-op dexamethaso 2020- No 10mg 10 mg, Uni vers ne 04-24 03-04 Oral, ity of (DECADRON 21:30: 20:45 ONCE, 1 [place] PHOSPHATE[place] 00 :00 dose, Beat[place] Medi yisel injection 04/24/20 at Branc h 10 mg 1530, Routine proMETHazin 2019-02 Yes [id number] 25mg Take 1 Univers e 25 mg 2-21 tablet by ity of tablet 00:00: mouth [place] 00 every 4 Medical (four) Branch hours as needed for Nausea and Vomiting (N/V). proMETHazin 2020-1 Yes [id number] 25mg Take 1 Univers e 25 mg 2-21 tablet by ity of tablet 00:00: mouth [place] 00 every 4 Medical (four) Branch hours as needed for Nausea and Vomiting (N/V). proMETHazin 2020-1 Yes [id number] 25mg Take 1 Univers e 25 mg 2-21 tablet by ity of tablet 00:00: mouth [place] 00 every 4 Medical (four) Branch hours as needed for Nausea and Vomiting (N/V). proMETHazin 2020-1 Yes [id number] 25mg Take 1 Univers e 25 mg 2-21 tablet by ity of tablet 00:00: mouth [place] 00 every 4 Medical (four) Branch hours as needed for Nausea and Vomiting (N/V). proMETHazin 2019-1 Yes [id number] 25mg Take 1 Univers e 25 mg 2-21 tablet by ity of tablet 00:00: mouth [place] 00 every 4 Medical (four) Branch hours as needed for Nausea and Vomiting (N/V). proMETHazin 2019-1 Yes [id number] 25mg Take 1 Univers e 25 mg 2-21 tablet by ity of tablet 00:00: mouth [place] 00 every 4 Medical (four) Branch hours as needed for Nausea and Vomiting (N/V). proMETHazin 2020-1 Yes [id number] 25mg Take 1 Univers e 25 mg 2-21 tablet by ity of tablet 00:00: mouth [place] 00 every 4 Medical (four) Branch hours as needed for Nausea and Vomiting (N/V). proMETHazin 2020-1 Yes [id number] 25mg Take 1 Univers e 25 mg 2-21 tablet by ity of tablet 00:00: mouth [place] 00 every 4 Medical (four) Branch hours as needed for Nausea and Vomiting (N/V). proMETHazin 2020-1 Yes [id number] 25mg Take 1 Univers e 25 mg 2-21 tablet by ity of tablet 00:00: mouth [place] 00 every 4 Medical (four) Branch hours as needed for Nausea and Vomiting (N/V). proMETHazin 2020-1 Yes [id number] 25mg Take 1 Univers e 25 mg 2-21 tablet by ity of tablet 00:00: mouth [place] 00 every 4 Medical (four) Branch hours as needed for Nausea and Vomiting (N/V). proMETHazin 2020-1 Yes [id number] 25mg Take 1 Univers e 25 mg 2-21 tablet by ity of tablet 00:00: mouth [place] 00 every 4 Medical (four) Branch hours as needed for Nausea and Vomiting (N/V). proMETHazin 2020-1 Yes [id number] 25mg Take 1 Univers e 25 mg 2-21 tablet by ity of tablet 00:00: mouth [place] 00 every 4 Medical (four) Branch hours as needed for Nausea and Vomiting (N/V). proMETHazin 2020-1 Yes [id number] 25mg Take 1 Univers e 25 mg 2-21 tablet by ity of tablet 00:00: mouth [place] 00 every 4 Medical (four) Branch hours as needed for Nausea and Vomiting (N/V). proMETHazin 2020-1 Yes [id number] 25mg Take 1 Univers e 25 mg 2-21 tablet by ity of tablet 00:00: mouth [place] 00 every 4 Medical (four) Branch hours as needed for Nausea and Vomiting (N/V). proMETHazin 2020-1 Yes [id number] 25mg Take 1 Univers e 25 mg 2-21 tablet by ity of tablet 00:00: mouth [place] 00 every 4 Medical (four) Branch hours as needed for Nausea and Vomiting (N/V). proMETHazin 2020-1 Yes [id number] 25mg Take 1 Univers e 25 mg 2-21 tablet by ity of tablet 00:00: mouth [place] 00 every 4 Medical (four) Branch hours as needed for Nausea and Vomiting (N/V). proMETHazin 2020-1 Yes [id number] 25mg Take 1 Univers e 25 mg 2-21 tablet by ity of tablet 00:00: mouth [place] 00 every 4 Medical (four) Branch hours as needed for Nausea and Vomiting (N/V). proMETHazin 2020-1 Yes [id number] 25mg Take 1 Univers e 25 mg 2-21 tablet by ity of tablet 00:00: mouth [place] 00 every 4 Medical (four) Branch hours as needed for Nausea and Vomiting (N/V). proMETHazin 2020-1 Yes [id number] 25mg Take 1 Univers e 25 mg 2-21 tablet by ity of tablet 00:00: mouth [place] 00 every 4 Medical (four) Branch hours as needed for Nausea and Vomiting (N/V). 2019-02 Yes [id number] 1{packe Take 1 Univers vit 0-12 t} Packet by ity of 33-iron-fol 00:00: mouth [place] ic-dha 00 daily. Medical (SELECT-[facility] Branch + DHA) 29 mg iron-1 mg -250 mg combo pack 2019-02 Yes [id number] 1{packe Take 1 Univers vit 0-12 t} Packet by ity of 33-iron-fol 00:00: mouth [place] ic-dha 00 daily. Medical ([facility] Branch + DHA) 29 mg iron-1 mg -250 mg combo pack 2019-02 Yes [id number] 1{packe Take 1 Univers vit 0-12 t} Packet by ity of 33-iron-fol 00:00: mouth [place] ic-dha 00 daily. Medical ([facility] Branch + DHA) 29 mg iron-1 mg -250 mg combo pack 2019-02 Yes [id number] 1{packe Take 1 Univers vit 0-12 t} Packet by ity of 33-iron-fol 00:00: mouth [place] ic-dha 00 daily. Medical ([facility] Branch + DHA) 29 mg iron-1 mg -250 mg combo pack 2019-02 Yes [id number] 1{packe Take 1 Univers vit 0-12 t} Packet by ity of 33-iron-fol 00:00: mouth [place] ic-dha 00 daily. Medical ([facility] Branch + DHA) 29 mg iron-1 mg -250 mg combo pack 2019-02 Yes [id number] 1{packe Take 1 [facility] vit 0-12 t} Packet by ity of 33-iron-fol 00:00: mouth [place] ic-dha 00 daily. Medical ([facility] Branch + DHA) 29 mg iron-1 mg -250 mg combo pack 2019-02 Yes [id number] 1{packe Take 1 Univers vit 0-12 t} Packet by ity of 33-iron-fol 00:00: mouth [place] ic-dha 00 daily. Medical ([facility] Branch + DHA) 29 mg iron-1 mg -250 mg combo pack 2019-02 Yes [id number] 1{packe Take 1 Univers vit 0-12 t} Packet by ity of 33-iron-fol 00:00: mouth [place] ic-dha 00 daily. Medical ([facility] Branch + DHA) 29 mg iron-1 mg -250 mg combo pack 2020- Yes [id number] 1{packe Take 1 Univers vit 0-12 t} Packet by ity of 33-iron-fol 00:00: mouth [place] ic-dha 00 daily. Medical ([facility] Branch + DHA) 29 mg iron-1 mg -250 mg combo pack 2020- Yes [id number] 1{packe Take 1 [facility] vit 0-12 t} Packet by ity of 33-iron-fol 00:00: mouth [place] ic-dha 00 daily. Medical ([facility] Branch + DHA) 29 mg iron-1 mg -250 mg combo pack 2020- Yes [id number] 1{packe Take 1 Univers vit 0-12 t} Packet by ity of 33-iron-fol 00:00: mouth [place] ic-dha 00 daily. Medical ([facility] Branch + DHA) 29 mg iron-1 mg -250 mg combo pack 2020- Yes [id number] 1{packe Take 1 Univers vit 0-12 t} Packet by ity of 33-iron-fol 00:00: mouth [place] ic-dha 00 daily. Medical ([facility] Branch + DHA) 29 mg iron-1 mg -250 mg combo pack 2020- Yes [id number] 1{packe Take 1 Univers vit 0-12 t} Packet by ity of 33-iron-fol 00:00: mouth [place] ic-dha 00 daily. Medical ([facility] Branch + DHA) 29 mg iron-1 mg -250 mg combo pack 2020- Yes [id number] 1{packe Take 1 Univers vit 0-12 t} Packet by ity of 33-iron-fol 00:00: mouth [place] ic-dha 00 daily. Medical ([facility] Branch + DHA) 29 mg iron-1 mg -250 mg combo pack 2020- Yes [id number] 1{packe Take 1 Univers vit 0-12 t} Packet by ity of 33-iron-fol 00:00: mouth [place] ic-dha 00 daily. Medical ([facility] Branch + DHA) 29 mg iron-1 mg -250 mg combo pack 2020- Yes [id number] 1{packe Take 1 Univers vit 0-12 t} Packet by ity of 33-iron-fol 00:00: mouth [place] ic-dha 00 daily. Medical ([facility] Branch + DHA) 29 mg iron-1 mg -250 mg combo pack 2019-02 Yes [id number] 1{packe Take 1 [facility] vit 0-12 t} Packet by ity of 33-iron-fol 00:00: mouth [place] ic-dha 00 daily. Medical ([facility] Branch + DHA) 29 mg iron-1 mg -250 mg combo pack 2019-02 Yes [id number] 1{packe Take 1 Univers vit 0-12 t} Packet by ity of 33-iron-fol 00:00: mouth [place] ic-dha 00 daily. Medical ([facility] Branch + DHA) 29 mg iron-1 mg -250 mg combo pack 2019-02 Yes [id number] 1{packe Take 1 Univers vit 0-12 t} Packet by ity of 33-iron-fol 00:00: mouth [place] ic-dha 00 daily. Medical ([facility] Branch + DHA) 29 mg iron-1 mg -250 mg combo pack 2019-02 Yes [id number] 1{packe Take 1 Univers vit 0-12 t} Packet by ity of 33-iron-fol 00:00: mouth [place] ic-dha 00 daily. Medical ([facility] Branch + DHA) 29 mg iron-1 mg -250 mg combo pack 2019-02 Yes [id number] 1{packe Take 1 Univers vit 0-12 t} Packet by ity of 33-iron-fol 00:00: mouth [place] ic-dha 00 daily. Medical ([facility] Branch + DHA) 29 mg iron-1 mg -250 mg combo pack 2019-02 Yes [id number] 1{packe Take 1 [facility] vit 0-12 t} Packet by ity of 33-iron-fol 00:00: mouth [place] ic-dha 00 daily. Medical ([facility] Branch + DHA) 29 mg iron-1 mg -250 mg combo pack 2019-02 Yes [id number] 1{packe Take 1 Univers vit 0-12 t} Packet by ity of 33-iron-fol 00:00: mouth [place] ic-dha 00 daily. Medical ([facility] Branch + DHA) 29 mg iron-1 mg -250 mg combo pack 2019-02 Yes [id number] 1{packe Take 1 Univers vit 0-12 t} Packet by ity of 33-iron-fol 00:00: mouth [place] ic-dha 00 daily. Medical ([facility] Branch + DHA) 29 mg iron-1 mg -250 mg combo pack 2019-02 Yes [id number] 1{packe Take 1 Univers vit 0-12 t} Packet by ity of 33-iron-fol 00:00: mouth [place] ic-dha 00 daily. Medical ([facility] Branch + DHA) 29 mg iron-1 mg -250 mg combo pack 2019-02 Yes [id number] 1{packe Take 1 Univers vit 0-12 t} Packet by ity of 33-iron-fol 00:00: mouth [place] ic-dha 00 daily. Medical ([facility] Branch + DHA) 29 mg iron-1 mg -250 mg combo pack 2019-02 Yes [id number] 1{packe Take 1 Univers vit 0-12 t} Packet by ity of 33-iron-fol 00:00: mouth [place] ic-dha 00 daily. Medical ([facility] Branch + DHA) 29 mg iron-1 mg -250 mg combo pack 2019-02 Yes [id number] 1{packe Take 1 [facility] vit 0-12 t} Packet by ity of 33-iron-fol 00:00: mouth [place] ic-dha 00 daily. Medical ([facility] Branch + DHA) 29 mg iron-1 mg -250 mg combo pack 2019-02 Yes [id number] 1{packe Take 1 Univers vit 0-12 t} Packet by ity of 33-iron-fol 00:00: mouth [place] ic-dha 00 daily. Medical ([facility] Branch + DHA) 29 mg iron-1 mg -250 mg combo pack metroNIDAZO 2019-02 2020- No [id number] 1000mg Take 2 Univers LE 500 mg 0-07 10-09 tablets by ity of tablet 00:00: 04:59 mouth 2 [place] 00 :00 (two) Medical times Branch daily for 1 day. metroNIDAZO 2019-02- No [id number] 1000mg Take 2 [facility] LE 500 mg 0-07 10-09 tablets by ity of tablet 00:00: 04:59 mouth 2 [place] 00 :00 (two) Medical times Branch daily for 1 day. metroNIDAZO 2019-02- No [id number] 1000mg Take 2 Univers LE 500 mg 0-07 10-09 tablets by ity of tablet 00:00: 04:59 mouth 2 [place] 00 :00 (two) Medical times Branch daily for 1 day. metroNIDAZO 2019- 2020- No [id number] 1000mg Take 2 [facility] LE 500 mg 0-07 10-09 tablets by ity of tablet 00:00: 04:59 mouth 2 [place] 00 :00 (two) Medical times Branch daily for 1 day. proMETHazin 2019-02 Yes [id number] 25mg Take 1 Univers e 25 mg 0-05 tablet by ity of tablet 00:00: mouth [place] 00 every 4 Medical (four) Branch hours as needed for Nausea and Vomiting (N/V). proMETHazin 2019-02 Yes [id number] 25mg Take 1 [facility] e 25 mg 0-05 tablet by ity of tablet 00:00: mouth [place] 00 every 4 Medical (four) Branch hours as needed for Nausea and Vomiting (N/V). proMETHazin 2019-02 Yes [id number] 25mg Take 1 [facility] e 25 mg 0-05 tablet by ity of tablet 00:00: mouth [place] 00 every 4 Medical (four) Branch hours as needed for Nausea and Vomiting (N/V). proMETHazin 2019-02 Yes [id number] 25mg Take 1 [facility] e 25 mg 0-05 tablet by ity of tablet 00:00: mouth [place] 00 every 4 Medical (four) Branch hours as needed for Nausea and Vomiting (N/V). proMETHazin 2019-02 Yes [id number] 25mg Take 1 Univers e 25 mg 0-05 tablet by ity of tablet 00:00: mouth [place] 00 every 4 Medical (four) Branch hours as needed for Nausea and Vomiting (N/V). proMETHazin 2019-02 Yes [id number] 25mg Take 1 [facility] e 25 mg 0-05 tablet by ity of tablet 00:00: mouth [place] 00 every 4 Medical (four) Branch hours as needed for Nausea and Vomiting (N/V). proMETHazin 2019-02 Yes [id number] 25mg Take 1 [facility] e 25 mg 0-05 tablet by ity of tablet 00:00: mouth [place] 00 every 4 Medical (four) Branch hours as needed for Nausea and Vomiting (N/V). proMETHazin 2019-02 Yes [id number] 25mg Take 1 [facility] e 25 mg 0-05 tablet by ity of tablet 00:00: mouth [place] 00 every 4 Medical (four) Branch hours as needed for Nausea and Vomiting (N/V). proMETHazin 2020-1 Yes [id number] 25mg Take 1 [facility] e 25 mg 0-05 tablet by ity of tablet 00:00: mouth [place] 00 every 4 Medical (four) Branch hours as needed for Nausea and Vomiting (N/V). proMETHazin 2020-1 Yes [id number] 25mg Take 1 [facility] e 25 mg 0-05 tablet by ity of tablet 00:00: mouth [place] 00 every 4 Medical (four) Branch hours as needed for Nausea and Vomiting (N/V). proMETHazin 2020-1 Yes [id number] 25mg Take 1 Univers e 25 mg 0-05 tablet by ity of tablet 00:00: mouth [place] 00 every 4 Medical (four) Branch hours as needed for Nausea and Vomiting (N/V). proMETHazin 2020-1 Yes [id number] 25mg Take 1 [facility] e 25 mg 0-05 tablet by ity of tablet 00:00: mouth [place] 00 every 4 Medical (four) Branch hours as needed for Nausea and Vomiting (N/V). proMETHazin 2020-1 Yes [id number] 25mg Take 1 [facility] e 25 mg 0-05 tablet by ity of tablet 00:00: mouth [place] 00 every 4 Medical (four) Branch hours as needed for Nausea and Vomiting (N/V). proMETHazin 2020-1 Yes [id number] 25mg Take 1 [facility] e 25 mg 0-05 tablet by ity of tablet 00:00: mouth [place] 00 every 4 Medical (four) Branch hours as needed for Nausea and Vomiting (N/V). proMETHazin 2020-1 Yes [id number] 25mg Take 1 [facility] e 25 mg 0-05 tablet by ity of tablet 00:00: mouth [place] 00 every 4 Medical (four) Branch hours as needed for Nausea and Vomiting (N/V). proMETHazin 2020-1 Yes [id number] 25mg Take 1 [facility] e 25 mg 0-05 tablet by ity of tablet 00:00: mouth [place] 00 every 4 Medical (four) Branch hours as needed for Nausea and Vomiting (N/V). proMETHazin 2020-1 Yes [id number] 25mg Take 1 [facility] e 25 mg 0-05 tablet by ity of tablet 00:00: mouth [place] 00 every 4 Medical (four) Branch hours as needed for Nausea and Vomiting (N/V). proMETHazin 2020-1 Yes [id number] 25mg Take 1 [facility] e 25 mg 0-05 tablet by ity of tablet 00:00: mouth [place] 00 every 4 Medical (four) Branch hours as needed for Nausea and Vomiting (N/V). proMETHazin 2019-1 2020- No [id number] 25mg Take 1 Univers e 25 mg 0-05 12-17 tablet by ity of tablet 00:00: 00:00 mouth [place] 00 :00 every 4 Medical (four) Branch hours as needed for Nausea and Vomiting (N/V). metoclopram 2019-0 2019- No 10mg 10 mg, Uni vers ghulam HCl 11-11 Slow IV ity of (REGLAN) 21:45: 20:53 Push, [place] injection 00 :00 ONCE, 1 Medical 10 mg dose, Mon Branch 11/12/19 at 1645, ELGIN NaCl 0.9% 2019-2019- No 1000mL at 999 Uni vers (NS) bolus 11-11 mL/hr, ity of infusion 20:45: 22:02 1,000 mL, [place] as 1,000 mL 00 :00 IV Medical Infusion, Branch ONCE, 1 dose, 11/12/19 at 1545, ELGIN metoclopram 2020-0 Yes [id number] 10mg Take 1 Univers ghulam HCl 10 9-21 tablet by ity of mg tablet 00:00: mouth [place] 00 every 6 Medical (six) Branch hours as needed for Nausea and Vomiting (N/V). metoclopram 2020-0 Yes [id number] 10mg Take 1 [facility] ghulam HCl 10 9-21 tablet by ity of mg tablet 00:00: mouth [place] 00 every 6 Medical (six) Branch hours as needed for Nausea and Vomiting (N/V). metoclopram 2020-0 Yes [id number] 10mg Take 1 [facility] ghulam HCl 10 9-21 tablet by ity of mg tablet 00:00: mouth [place] 00 every 6 Medical (six) Branch hours as needed for Nausea and Vomiting (N/V). metoclopram 2020-0 Yes [id number] 10mg Take 1 [facility] ghulam HCl 10 9-21 tablet by ity of mg tablet 00:00: mouth [place] 00 every 6 Medical (six) Branch hours as needed for Nausea and Vomiting (N/V). metoclopram 2020-0 Yes [id number] 10mg Take 1 [facility] ghulam HCl 10 9-21 tablet by ity of mg tablet 00:00: mouth [place] 00 every 6 Medical (six) Branch hours as needed for Nausea and Vomiting (N/V). metoclopram 2020-0 Yes [id number] 10mg Take 1 [facility] ghulam HCl 10 9-21 tablet by ity of mg tablet 00:00: mouth [place] 00 every 6 Medical (six) Branch hours as needed for Nausea and Vomiting (N/V). metoclopram 2020-0 Yes [id number] 10mg Take 1 [facility] ghulam HCl 10 9-21 tablet by ity of mg tablet 00:00: mouth [place] 00 every 6 Medical (six) Branch hours as needed for Nausea and Vomiting (N/V). metoclopram 2020-0 Yes [id number] 10mg Take 1 [facility] ghulam HCl 10 9-21 tablet by ity of mg tablet 00:00: mouth [place] 00 every 6 Medical (six) Branch hours as needed for Nausea and Vomiting (N/V). metoclopram 2020-0 Yes [id number] 10mg Take 1 [facility] ghulam HCl 10 9-21 tablet by ity of mg tablet 00:00: mouth [place] 00 every 6 Medical (six) Branch hours as needed for Nausea and Vomiting (N/V). metoclopram 2020-0 Yes [id number] 10mg Take 1 [facility] ghulam HCl 10 9-21 tablet by ity of mg tablet 00:00: mouth [place] 00 every 6 Medical (six) Branch hours as needed for Nausea and Vomiting (N/V). metoclopram 2020-0 Yes [id number] 10mg Take 1 [facility] ghulam HCl 10 9-21 tablet by ity of mg tablet 00:00: mouth [place] 00 every 6 Medical (six) Branch hours as needed for Nausea and Vomiting (N/V). metoclopram 2020-0 Yes [id number] 10mg Take 1 [facility] ghulam HCl 10 9-21 tablet by ity of mg tablet 00:00: mouth [place] 00 every 6 Medical (six) Branch hours as needed for Nausea and Vomiting (N/V). metoclopram 2020-0 Yes [id number] 10mg Take 1 [facility] ghulam HCl 10 9-21 tablet by ity of mg tablet 00:00: mouth [place] 00 every 6 Medical (six) Branch hours as needed for Nausea and Vomiting (N/V). metoclopram 2020-0 Yes [id number] 10mg Take 1 [facility] ghulam HCl 10 9-21 tablet by ity of mg tablet 00:00: mouth [place] 00 every 6 Medical (six) Branch hours as needed for Nausea and Vomiting (N/V). metoclopram 2020-0 Yes [id number] 10mg Take 1 [facility] ghulam HCl 10 9-21 tablet by ity of mg tablet 00:00: mouth [place] 00 every 6 Medical (six) Branch hours as needed for Nausea and Vomiting (N/V). metoclopram 2020-0 Yes [id number] 10mg Take 1 [facility] ghulam HCl 10 9-21 tablet by ity of mg tablet 00:00: mouth [place] 00 every 6 Medical (six) Branch hours as needed for Nausea and Vomiting (N/V). metoclopram 2020-0 Yes [id number] 10mg Take 1 [facility] ghulam HCl 10 9-21 tablet by ity of mg tablet 00:00: mouth [place] 00 every 6 Medical (six) Branch hours as needed for Nausea and Vomiting (N/V). metoclopram 2020-0 Yes [id number] 10mg Take 1 [facility] ghulam HCl 10 9-21 tablet by ity of mg tablet 00:00: mouth [place] 00 every 6 Medical (six) Branch hours as needed for Nausea and Vomiting (N/V). metoclopram 2020-0 Yes [id number] 10mg Take 1 [facility] ghulam HCl 10 9-21 tablet by ity of mg tablet 00:00: mouth [place] 00 every 6 Medical (six) Branch hours as needed for Nausea and Vomiting (N/V). metoclopram 2020-0 Yes [id number] 10mg Take 1 Univers ghulam HCl 10 9-21 tablet by ity of mg tablet 00:00: mouth [place] 00 every 6 Medical (six) Branch hours as needed for Nausea and Vomiting (N/V). metoclopram 2020-0 Yes [id number] 10mg Take 1 [facility] ghulam HCl 10 9-21 tablet by ity of mg tablet 00:00: mouth [place] 00 every 6 Medical (six) Branch hours as needed for Nausea and Vomiting (N/V). metoclopram 2020-0 Yes [id number] 10mg Take 1 Univers ghulam HCl 10 9-21 tablet by ity of mg tablet 00:00: mouth [place] 00 every 6 Medical (six) Branch hours as needed for Nausea and Vomiting (N/V). metoclopram 2020-0 Yes [id number] 10mg Take 1 Univers ghulam HCl 10 9-21 tablet by ity of mg tablet 00:00: mouth [place] 00 every 6 Medical (six) Branch hours as needed for Nausea and Vomiting (N/V). metoclopram 2020-0 Yes [id number] 10mg Take 1 [facility] ghulam HCl 10 9-21 tablet by ity of mg tablet 00:00: mouth [place] 00 every 6 Medical (six) Branch hours as needed for Nausea and Vomiting (N/V). metoclopram 2020-0 Yes [id number] 10mg Take 1 [facility] ghulam HCl 10 9-21 tablet by ity of mg tablet 00:00: mouth [place] 00 every 6 Medical (six) Branch hours as needed for Nausea and Vomiting (N/V). metoclopram 2020-0 Yes [id number] 10mg Take 1 [facility] ghulam HCl 10 9-21 tablet by ity of mg tablet 00:00: mouth [place] 00 every 6 Medical (six) Branch hours as needed for Nausea and Vomiting (N/V). metoclopram 2020-0 Yes [id number] 10mg Take 1 [facility] ghulam HCl 10 9-21 tablet by ity of mg tablet 00:00: mouth [place] 00 every 6 Medical (six) Branch hours as needed for Nausea and Vomiting (N/V). metoclopram 2020-0 Yes [id number] 10mg Take 1 [facility] ghulam HCl 10 9-21 tablet by ity of mg tablet 00:00: mouth [place] 00 every 6 Medical (six) Branch hours as needed for Nausea and Vomiting (N/V). metoclopram 2020-0 Yes [id number] 10mg Take 1 [facility] ghulam HCl 10 9-21 tablet by ity of mg tablet 00:00: mouth [place] 00 every 6 Medical (six) Branch hours as needed for Nausea and Vomiting (N/V). metoclopram 2020-0 Yes [id number] 10mg Take 1 [facility] ghulam HCl 10 9-21 tablet by ity of mg tablet 00:00: mouth [place] 00 every 6 Medical (six) Branch hours as needed for Nausea and Vomiting (N/V). metoclopram 2020-0 Yes [id number] 10mg Take 1 [facility] ghulam HCl 10 9-21 tablet by ity of mg tablet 00:00: mouth [place] 00 every 6 Medical (six) Branch hours as needed for Nausea and Vomiting (N/V). metoclopram 2020-0 Yes [id number] 10mg Take 1 [facility] ghulam HCl 10 9-21 tablet by ity of mg tablet 00:00: mouth [place] 00 every 6 Medical (six) Branch hours as needed for Nausea and Vomiting (N/V). metoclopram 2020-0 Yes [id number] 10mg Take 1 [facility] ghulam HCl 10 9-21 tablet by ity of mg tablet 00:00: mouth [place] 00 every 6 Medical (six) Branch hours as needed for Nausea and Vomiting (N/V). metoclopram 2020-0 Yes [id number] 10mg Take 1 [facility] ghulam HCl 10 9-21 tablet by ity of mg tablet 00:00: mouth [place] 00 every 6 Medical (six) Branch hours as needed for Nausea and Vomiting (N/V). metoclopram 2020-0 Yes [id number] 10mg Take 1 Univers ghulam HCl 10 9-21 tablet by ity of mg tablet 00:00: mouth [place] 00 every 6 Medical (six) Branch hours as needed for Nausea and Vomiting (N/V). metoclopram 2020-0 Yes [id number] 10mg Take 1 [facility] ghulam HCl 10 9-21 tablet by ity of mg tablet 00:00: mouth [place] 00 every 6 Medical (six) Branch hours as needed for Nausea and Vomiting (N/V). metoclopram 2020-0 Yes [id number] 10mg Take 1 [facility] ghulam HCl 10 9-21 tablet by ity of mg tablet 00:00: mouth [place] 00 every 6 Medical (six) Branch hours as needed for Nausea and Vomiting (N/V). metoclopram 2020-0 Yes [id number] 10mg Take 1 [facility] ghulam HCl 10 9-21 tablet by ity of mg tablet 00:00: mouth [place] 00 every 6 Medical (six) Branch hours as needed for Nausea and Vomiting (N/V). metoclopram 2020-0 Yes [id number] 10mg Take 1 Univers ghulam HCl 10 9-21 tablet by ity of mg tablet 00:00: mouth [place] 00 every 6 Medical (six) Branch hours as needed for Nausea and Vomiting (N/V). Immunizations Ordered Filled Immunization Date Status Comments [facility] Immunization Name Name HPV9 2020-09-15 Completed University 00:00:00 [facility] HPV9 2020-09-15 Completed University of 00:00:00 [facility] HPV9 2020-09-15 Completed University of 00:00:00 [place] [facility] HPV9 2020-09-15 Completed University of 00:00:00 [place] [facility] HPV9 2020-09-15 Completed University of 00:00:00 [place] [facility] HPV9 2020-09-15 Completed University of 00:00:00 [place] [facility] HPV9 2020-09-15 Completed University of 00:00:00 [place] [facility] HPV9 2020-09-15 Completed University of 00:00:00 [place] [facility] HPV9 2020-09-15 Completed University of 00:00:00 [place] [facility] HPV9 2020-09-15 Completed University of 00:00:00 [place] [facility] HPV9 2020-09-15 Completed University of 00:00:00 [place] [facility] HPV9 2020-09-15 Completed University of 00:00:00 [place] [facility] HPV9 2020-08-04 Completed University of 00:00:00 [place] [facility] HPV9 2020-08-04 Completed University of 00:00:00 [place] [facility] HPV9 2020-08-04 Completed University of 00:00:00 [place] [facility] HPV9 2020-08-04 Completed University of 00:00:00 [place] [facility] HPV9 2020-08-04 Completed [facility] 00:00:00 [facility] HPV9 2020-08-04 Completed [facility] 00:00:00 [facility] HPV9 2020-08-04 Completed [facility] 00:00:00 [facility] HPV9 2020-08-04 Completed [facility] 00:00:00 [facility] HPV9 2020-08-04 Completed [facility] 00:00:00 [facility] HPV9 2020-08-04 Completed [facility] 00:00:00 [facility] HPV9 2020-08-04 Completed [facility] 00[facility]00:00 [facility] HPV9 2020-08-04 Completed [facility] 00:00:00 [facility] HPV9 2020-08-04 Completed [facility] 00:00:00 [facility] HPV9 2020-08-04 Completed [facility] 00:00:00 [facility] TDAP 2020-03-31 Completed [facility] of 00:00:00 [facility] TDAP 2020-03-31 Completed [facility] of 00:00:00 [facility] TDAP 2020-03-31 Completed [facility] of 00:00:00 [facility] TDAP 2020-03-31 Completed [facility] 00:00:00 [facility] TDAP 2020-03-31 Completed [facility] 00:00:00 [facility] TDAP 2020-03-31 Completed [facility] 00:00:00 [facility] TDAP 2020-03-31 Completed [facility] 00:00:00 [facility] TDAP 2020-03-31 Completed [facility] of 00:00:00 [facility] TDAP 2020-03-31 Completed [facility] 00:00:00 [facility] TDAP 2020-03-31 Completed [facility] 00:00:00 [facility] TDAP 2020-03-31 Completed [facility] 00:00:00 [facility] TDAP 2020-03-31 Completed [facility] 00:00:00 [facility] TDAP 2020-03-31 Completed [facility] of 00:00:00 [facility] TDAP 2020-03-31 Completed [facility] of 00:00:00 [facility] TDAP 2020-03-31 Completed [facility] 00:00:00 [facility] TDAP 2020-03-31 Completed [facility] of 00:00:00 [facility] TDAP 2020-03-31 Completed [facility] of 00:00:00 [facility] TDAP 2020-03-31 Completed [facility] of 00:00:00 [facility] TDAP 2020-03-31 Completed [facility] of 00:00:00 [facility] TDAP 2020-03-31 Completed [facility] of 00:00:00 [facility] TDAP 2020-03-31 Completed [facility] 00:00:00 [facility] TDAP 2020-03-31 Completed [facility] of 00:00:00 [facility] TDAP 2020-03-31 Completed [facility] of 00:00:00 [facility] TDAP 2020-03-31 Completed [facility] of 00:00:00 [facility] TDAP 2020-03-31 Completed [facility] 00[facility]00:00 [facility] TDAP 2020-03-31 Completed [facility] of 00:00:00 [facility] TDAP 2020-03-31 Completed [facility] of 00[facility]00:00 [facility] TDAP 2020-03-31 Completed [facility] of 00:00:00 [facility] TDAP 2020-03-31 Completed [facility] 00:00:00 [facility] Influenza Virus 2019-11-26 Completed [facility]it [facility] .5 mL 00:00:00 [facility] Influenza Virus 2019-11-26 Completed [facility] .5 mL 00:00:00 [facility] Influenza Virus 2019-11-26 Completed [facility] .5 mL 00:00:00 [facility] Influenza Virus 2019-11-26 Completed [facility] .5 mL 00:00:00 [facility] Influenza Virus 2019-11-26 Completed [facility] .5 mL 00:00:00 [facility] Influenza Virus 2019-11-26 Completed [facility] .5 mL 00:00:00 [facility] Influenza Virus 2019-11-26 Completed [facility] .5 mL 00:00:00 [facility] Influenza Virus 2019-11-26 Completed [facility] .5 mL 00:00:00 [facility] Influenza Virus 2019-11-26 Completed [facility] .5 mL 00:00:00 [facility] Influenza Virus 2019-11-26 Completed [facility] .5 mL 00:00:00 [facility] Influenza Virus 2019-11-26 Completed [facility] .5 mL 00:00:00 [facility] Influenza Virus 2019-11-26 Completed [facility] .5 mL 00:00:00 [facility] Influenza Virus 2019-11-26 Completed [facility] .5 mL 00:00:00 [facility] Influenza Virus 2019-11-26 Completed [facility]5 mL 00:00:00 [facility] Influenza Virus 2019-11-26 Completed [facility]5 mL 00:00:00 [facility] Influenza Virus 2019-11-26 Completed [facility] .5 mL 00:00:00 [facility] Influenza Virus 2019-11-26 Completed [facility] .5 mL 00:00:00 [facility] Influenza Virus 2019-11-26 Completed [facility] .5 mL 00:00:00 [facility] Influenza Virus 2019-11-26 Completed [facility]5 mL 00:00:00 [facility] Influenza Virus 2019-11-26 Completed [facility]5 mL 00:00:00 [facility] Influenza Virus 2019-11-26 Completed [facility]5 mL 00:00:00 [facility] Influenza Virus 2019-11-26 Completed [facility]5 mL 00:00:00 [facility] Influenza Virus 2019-11-26 Completed [facility]5 mL 00:00:00 [facility] Influenza Virus 2019-11-26 Completed [facility]5 mL 00:00:00 [facility] Influenza Virus 2019-11-26 Completed [facility] .5 mL 00:00:00 [facility] Influenza Virus 2019-11-26 Completed [facility]5 mL 00:00:00 [facility] Influenza Virus 2019-11-26 Completed [facility] .5 mL 00:00:00 [facility] Influenza Virus 2019-11-26 Completed [facility] .5 mL 00:00:00 [facility] Influenza Virus 2019-11-26 Completed [facility] .5 mL 00:00:00 [facility] Influenza Virus 2019-11-26 Completed [facility]5 mL 00:00:00 [facility] Influenza Virus 2019-11-26 Completed [facility]5 mL 00:00:00 [facility] Influenza Virus 2019-11-26 Completed [facility]5 mL 00:00:00 [facility] Influenza Virus 2019-11-26 Completed [facility] .5 mL 00:00:00 [facility] Influenza Virus 2019-11-26 Completed [facility] .5 mL 00:00:00 [facility] Influenza Virus 2019-11-26 Completed [facility]5 mL 00:00:00 [facility] Influenza Virus 2019-11-26 Completed [facility] .5 mL 00:00:00 [facility] Influenza Virus 2019-11-26 Completed [facility]5 mL 00:00:00 [facility] Influenza Virus 2019-11-26 Completed [facility]5 mL 00[facility]00:00 [facility] Vital Signs Vital Name Observation Time Observation Value Comments Source Systolic blood 2020-12-08 20:15:00 137 mm[Hg] Univer sity of pressure [facility] Diastolic blood 2020-12-08 20:15:00 90 mm[Hg] Unive rsity of pressure [facility] Heart rate 2020-12-08 20:13:00 71 /min [facility] [place] Body temperature 2020-12-08 20:13:00 37 Karla Univ ersity of [facility] Respiratory rate 2020-12-08 20:13:00 16 /min Univ ersity of [facility] Body height 2020-12-08 20:13:00 154.9 cm [facility] Body weight 2020-12-08 20:13:00 81.92 kg [facility] BMI 2020-12-08 20:13:00 34.12 kg/m2 [facility] Systolic blood 2020-09-15 20:58:00 119 mm[Hg] Univer sity of pressure [facility] Diastolic blood 2020-09-15 20:58:00 75 mm[Hg] Unive rsity of pressure [facility] Heart rate 2020-09-15 20:58:00 76 /min [facility] Body temperature 2020-09-15 20:58:00 36.56 Karla [facility] Respiratory rate 2020-09-15 20:58:00 16 /min Univ ersity of [facility] Body height 2020-09-15 20:58:00 154.9 cm [facility] Body weight 2020-09-15 20:58:00 80.105 kg [facility] BMI 2020-09-15 20:58:00 33.37 kg/m2 [facility] Systolic blood 2020-08-04 20:35:00 127 mm[Hg] Univer sity of pressure [facility] Diastolic blood 2020-08-04 20:35:00 89 mm[Hg] Unive rsity of pressure [facility] Heart rate 2020-08-04 20:35:00 56 /min [facility]i [facility] Body temperature 2020-08-04 20:35:00 37 Karla [facility] Respiratory rate 2020-08-04 20:35:00 16 /min Univ ersity of [facility] Body height 2020-08-04 20:35:00 152.4 cm [facility] Body weight 2020-08-04 20:35:00 79.198 kg [facility] BMI 2020-08-04 20:35:00 34.10 kg/m2 [facility] Systolic blood 2020-07-14 18:15:00 135 mm[Hg] Univer sity of pressure [facility] Diastolic blood 2020-07-14 18:15:00 88 mm[Hg] Unive rsity of pressure [facility] Heart rate 2020-07-14 18:15:00 65 /min [facility] Body temperature 2020-07-14 18:15:00 36.89 Karla [facility] Respiratory rate 2020-07-14 18:15:00 16 /min Univ ersity of [facility] Body height 2020-07-14 18:15:00 152.4 cm [facility] Body weight 2020-07-14 18:15:00 76.794 kg [facility] BMI 2020-07-14 18:15:00 33.06 kg/m2 [facility] Systolic blood 2020-06-30 18:25:00 122 mm[Hg] Univer sity of pressure [facility] Diastolic blood 2020-06-30 18:25:00 75 mm[Hg] Unive rsity of pressure [facility] Heart rate 2020-06-30 18:25:00 77 /min [facility] Body temperature 2020-06-30 18:25:00 36.72 Karla Univ ers[facility] Respiratory rate 2020-06-30 18:25:00 16 /min Univ ersity of [facility] Body height 2020-06-30 18:25:00 152.4 cm [facility] [place] Body weight 2020-06-30 18:25:00 95.709 kg [facility]i [facility] BMI 2020-06-30 18:25:00 41.21 kg/m2 Universi ty of [facility] Systolic blood 2020-06-24 00:30:00 115 mm[Hg] Univer sity of pressure [facility] Diastolic blood 2020-06-24 00:30:00 62 mm[Hg] Unive rsity of pressure [facility] Heart rate 2020-06-24 00:30:00 89 /min Universi ty of [facility] Body temperature 2020-06-24 00:30:00 37.06 Karla Univ ersity of [facility] Respiratory rate 2020-06-24 00:30:00 18 /min Univ ersity of [facility] Oxygen saturation in 2020-06-24 00:30:00 97 /min University Arterial blood by [facility] Pulse oximetry Branch Body height 2020-06-22 13:13:00 154.9 cm Universi ty of [facility] Body weight 2020-06-22 13:13:00 95.754 kg Universi ty of [facility] BMI 2020-06-22 13:13:00 39.91 kg/m2 Universi ty of [facility] Systolic blood 2020-06-19 21:41:00 138 mm[Hg] Univer sity of pressure [facility] Diastolic blood 2020-06-19 21:41:00 72 mm[Hg] Unive rsity of pressure [facility] Heart rate 2020-06-19 21:21:00 105 /min Universi ty of [facility] Body temperature 2020-06-19 21:19:00 36.94 Karla Univ ersity of [facility] Respiratory rate 2020-06-19 21:19:00 16 /min Univ ersity of [facility] Body height 2020-06-19 21:19:00 154.9 cm Universi ty of [facility] Body weight 2020-06-19 21:19:00 94.036 kg Universi ty of [facility] BMI 2020-06-19 21:19:00 39.17 kg/m2 [facility] Systolic blood 2020-05-27 19:30:00 134 mm[Hg] Univer sity of pressure [facility] Diastolic blood 2020-05-27 19:30:00 80 mm[Hg] Unive rsity of pressure [facility] Heart rate 2020-05-27 19:29:00 82 /min [facility] Body temperature 2020-05-27 19:29:00 36.67 Karla [facility] Respiratory rate 2020-05-27 19:29:00 16 /min Univ ersity of [facility] Body height 2020-05-27 19:29:00 154.9 cm [facility] Body weight 2020-05-27 19:29:00 90.379 kg [facility] BMI 2020-05-27 19:29:00 37.65 kg/m2 [facility] Systolic blood 2020-05-20 20:26:00 133 mm[Hg] Univer sity of pressure [facility] Diastolic blood 2020-05-20 20:26:00 89 mm[Hg] Unive rsity of pressure [facility] Heart rate 2020-05-20 20:26:00 74 /min [facility] Body temperature 2020-05-20 20:26:00 36.67 Karla [facility] Respiratory rate 2020-05-20 20:26:00 16 /min Univ ersity of [facility] Body height 2020-05-20 20:26:00 160 cm [facility] Body weight 2020-05-20 20:26:00 90.464 kg [facility] BMI 2020-05-20 20:26:00 35.33 kg/m2 [facility] Systolic blood 2020-04-30 21:03:00 138 mm[Hg] Univer sity of pressure [facility] Diastolic blood 2020-04-30 21:03:00 78 mm[Hg] Unive rsity of pressure [facility] Heart rate 2020-04-30 21:02:00 87 /min [facility] Body temperature 2020-04-30 21:02:00 36.89 Karla [facility] Respiratory rate 2020-04-30 21:02:00 16 /min Univ ersity of [facility] Body height 2020-04-30 21:02:00 160 cm [facility] Body weight 2020-04-30 21:02:00 89.926 kg Universi ty of [facility] BMI 2020-04-30 21:02:00 35.12 kg/m2 Universi ty of [facility] Systolic blood 2020-04-24 20:00:00 135 mm[Hg] Univer sity of pressure [facility] Diastolic blood 2020-04-24 20:00:00 86 mm[Hg] Unive rsity of pressure [facility] Heart rate 2020-04-24 20:00:00 83 /min Universi ty of [facility] Respiratory rate 2020-04-24 20:00:00 18 /min Univ ersity of [facility] Oxygen saturation in 2020-04-24 20:00:00 99 /min University of Arterial blood by [facility] Pulse oximetry Branch Body temperature 2020-04-24 19:23:00 37.06 Karla Univ ersity of [facility] Body weight 2020-04-24 19:23:00 89.812 kg [facility]i ty of [facility] BMI 2020-04-24 19:23:00 37.41 kg/m2 Universi ty of [facility] Systolic blood 2020-04-16 19:49:00 129 mm[Hg] Univer sity of pressure [facility] Diastolic blood 2020-04-16 19:49:00 81 mm[Hg] Unive rsity of pressure [facility] Heart rate 2020-04-16 19:49:00 77 /min Universi ty of [facility] Body temperature 2020-04-16 19:49:00 36.61 Karla Univ ersity of [facility] Respiratory rate 2020-04-16 19:49:00 16 /min Univ ersity of [facility] Body height 2020-04-16 19:49:00 154.9 cm Universi ty of [facility] Body weight 2020-04-16 19:49:00 90.22 kg Universi ty of [facility] BMI 2020-04-16 19:49:00 37.58 kg/m2 [facility] ty of [facility] Systolic blood 2020-03-17 16:46:00 105 mm[Hg] Univer sity of pressure [facility] Diastolic blood 2020-03-17 16:46:00 66 mm[Hg] Unive rsity of pressure [facility] Heart rate 2020-03-17 16:46:00 78 /min [facility] Body temperature 2020-03-17 16:46:00 36.72 Karla [facility] Respiratory rate 2020-03-17 16:46:00 16 /min Univ ersity of [facility] Body height 2020-03-17 16:46:00 154.9 cm [facility] Body weight 2020-03-17 16:46:00 88.055 kg [facility] BMI 2020-03-17 16:46:00 36.68 kg/m2 [facility] Systolic blood 2020-02-25 14:44:00 127 mm[Hg] Univer sity of pressure [facility] Diastolic blood 2020-02-25 14:44:00 74 mm[Hg] Unive rsity of pressure [facility] Heart rate 2020-02-25 14:44:00 79 /min [facility] Body temperature 2020-02-25 14:44:00 36.44 Karla [facility] Respiratory rate 2020-02-25 14:44:00 16 /min Univ ersity of [facility] Body height 2020-02-25 14:44:00 154.9 cm [facility] ty [facility] Body weight 2020-02-25 14:44:00 86.456 kg [facility] BMI 2020-02-25 14:44:00 36.01 kg/m2 [facility] Systolic blood 2020-01-28 15:46:00 98 mm[Hg] Univer sity of pressure [facility] Diastolic blood 2020-01-28 15:46:00 53 mm[Hg] Unive rsity of pressure [facility] Heart rate 2020-01-28 15:46:00 61 /min [facility] Body temperature 2020-01-28 15:46:00 36.61 Karla [facility] Respiratory rate 2020-01-28 15:46:00 16 /min Univ ersity of [facility] Body height 2020-01-28 15:46:00 154.9 cm [facility] Body weight 2020-01-28 15:46:00 86.955 kg [facility] BMI 2020-01-28 15:46:00 36.22 kg/m2 [facility] Systolic blood 2019-12-31 19:41:00 111 mm[Hg] Univer sity of pressure [facility] Diastolic blood 2019-12-31 19:41:00 58 mm[Hg] Unive rsity of pressure [facility] Heart rate 2019-12-31 19:41:00 53 /min [facility] Body temperature 2019-12-31 19:41:00 37.28 Karla [facility] Respiratory rate 2019-12-31 19:41:00 16 /min Univ ersity of [facility] Body height 2019-12-31 19:41:00 154.9 cm [facility] Body weight 2019-12-31 19:41:00 87 kg [facility] BMI 2019-12-31 19:41:00 36.24 kg/m2 [facility] Systolic blood 2019-11-26 14:14:00 125 mm[Hg] Univer sity of pressure [facility] Diastolic blood 2019-11-26 14:14:00 60 mm[Hg] Unive rsity of pressure [facility] Heart rate 2019-11-26 14:14:00 63 /min [facility] Body temperature 2019-11-26 14:14:00 37 Karla [facility] Respiratory rate 2019-11-26 14:14:00 16 /min Univ ersity of [facility] Body height 2019-11-26 14:14:00 154.9 cm [facility] Body weight 2019-11-26 14:14:00 85.957 kg [facility] BMI 2019-11-26 14:14:00 35.81 kg/m2 [facility] Systolic blood 2019-11-12 22:15:00 112 mm[Hg] Univer sity of pressure [facility] Diastolic blood 2019-11-12 22:15:00 65 mm[Hg] [facility] rsity of pressure [facility] Heart rate 2019-11-12 22:15:00 56 /min [facility] Respiratory rate 2019-11-12 22:15:00 18 /min [facility] Oxygen saturation in 2019-11-12 22:15:00 100 /min [facility] Arterial blood by [facility] Pulse oximetry [place] Body temperature 2019-11-12 20:20:00 37.11 Karla [facility] Body height 2019-11-12 20:20:00 154.9 cm [facility] Body weight 2019-11-12 20:20:00 81.647 kg [facility] BMI 2019-11-12 20:20:00 34.01 kg/m2 [facility] Procedures Procedure Date / Time Performing Clinician Source Performed ASSIGNMENT OF BENEFITS 2020-12-08 19:59:42 Doctor Unassigned, No [facility] Name [facility] GARDASIL 9 (HPV 9V) 2020-09-15 21:21:22 Danish Monahan [facility] GARDASIL 9 (HPV 9V) 2020-08-04 20:59:38 Myriam Murray [facility] CBC WITH DIFF 2020-06-24 11:40:00 Judit To [facility] SECTION 2020-06-24 01:43:00 Vania Westfall [facility] URINALYSIS 2020-06-23 23:59:00 Abbey Kemp [facility] PROTEIN CREAT RATIO 2020-06-23 23:59:00 Abbey Kemp [facility] URINE RANDOM [facility] SGOT (ASPARTATE AMINO 2020-06-23 23:51:00 Abbey Kemp [facility] TRANSFER) [facility] CREATININE 2020-06-23 23:51:00 Abbey Kemp [facility] ALANINE AMINO 2020-06-23 23:51:00 Abbey Kemp [facility] TRANSFERASE(SGPT [facility] [place] LACTATE DEHYDROGENASE 2020-06-23 23:51:00 Abbey Kemp [facility] URIC ACID 2020-06-23 23:51:00 Viridiana [facility] CBC WITH DIFF 2020-06-23 23:51:00 Viridiana [facility] CENTRAL NEURAXIAL BLOCK 2020-06-23 05:10:15 Jesse Dewey [facility] URINALYSIS 2020-06-22 14:54:00 Marah Blair [facility] PROTEIN CREAT RATIO 2020-06-22 14:54:00 Marah Blair [facility] URINE RANDOM [facility] SGOT (ASPARTATE AMINO 2020-06-22 14:53:00 Marah Blair [facility] TRANSFER) [facility] CREATININE 2020-06-22 14:53:[facility] 2020-06-22 14:53[facility] [place] LACTATE DEHYDROGENASE 2020-06-22 14:53:00 Marah Blair [facility] URIC ACID 2020-06-22 14:53:00 Marah Blair [facility] CBC WITH DIFF 2020-06-22 14:53:00 Marah Blair [facility] HEPATITIS B SURFACE 2020-06-22 14:53:00 Marah Blair [facility] ANTIGEN [facility] HIV 1/2 AG-AB WITH 2020-06-22 14:53:00 Marah Blair [facility] REFLEX [facility] GALV ONLY - SYPHILIS 2020-06-22 14:53:00 Marah Blair [facility] IGG/IGM [facility] HB ABO GROUPING 2020-06-22 14:30:00 Marah Blair [facility] RHO (D) IMMUNE GLOBULIN 2020-06-22 14:30:00 Danae Torres [facility] COVID-19 (ID NOW RAPID 2020-06-22 13:08:00 Pricila Osorio [facility] TESTING) Medical Branch POCT URINALYSIS W/O 2020-06-19 21:24:00 [facility] POCT URINALYSIS 2020-05-27 19:30:00 Danish Monahan [facility] POCT URINALYSIS 2020-05-20 20:27:00 Danish Monahan [facility] CONSENT/REFUSAL FOR 2020-04-24 19:16:07 [facility], [facility] Name [facility] POCT URINALYSIS 2020-04-16 19:50:00 Danish Monahan [facility] POCT URINALYSIS 2020-03-17 16:54:00 Danish Monahan [facility] POCT URINALYSIS 2020-02-25 00:00:00 Danish Monahan [facility] POCT URINALYSIS 2020-01-28 00:00:00 Danish Monahan [facility] POCT URINALYSIS 2019-12-31 00:00:00 Danish Monahan [facility] GLUCOSE 1 HOUR POST 2019-11-26 15:48:00 Danish Monahan [facility] CBC WITH DIFF 2019-11-26 15:48:00 Danish Monahan [facility] RUBELLA SCREEN IGG 2019-11-26 15:48:00 Danish Monahan [facility] VZV ANTIBODY SCREEN 2019-11-26 15:48:00 Danish Monahan [facility] HEPATITIS B SURFACE 2019-11-26 15:48:00 Danish Monahan [facility] HIV 1/2 AG-AB WITH 2019-11-26 15:48:00 Danish Monahan [facility] REFLEX [facility] GALV ONLY - SYPHILIS 2019-11-26 15:48:00 Danish Monahan [facility] IGG/IGM [facility] SARS-COV-2 IGG 2019-11-26 15:48:00 Danish Monahan [facility] HB ABO GROUPING 2019-11-26 15:40:00 Danish Monahan [facility] URINE CULTURE 2019-11-26 15:29:00 Danish Monahan [facility] GC & CHLAMYDIA AMPLIFIED 2019-11-26 15:29:00 Danish Monahan [facility] LAB ONLY PAP 2019-11-26 15:29:00 Danish Monahan [facility] SMEAR-LIQUID BASED Medical Branc h TRICHOMONAS AMPLIFIED 2019-11-26 15:29:00 Danish Monahan [facility] PAP SMEAR-LIQUID 2019-11-26 15:29:00 Danish Monahan [facility] FLU VACC ([phone]), 6+ 2019-11-26 14:40:08 Danish Monahan [facility] MONTHS, IM, QUAD [facility] ASSIGNMENT OF BENEFITS 2019-11-26 13:44:38 Doctor Unassigned, No [facility] POCT TEST 2019-11-26 00:00:00 [facility] POCT URINALYSIS W/O 2019-11-26 00:00:00 Danish Monahan [facility] SPECIFIC GRAVITY [facility] LIPASE 2019-11-12 20:52:00 Osvaldo Camacho [facility] COMP. METABOLIC PANEL 2019-11-12 20:52:00 [facility]do [id number] TOTAL BETA HCG ASSAY 2019-11-12 20:52:00 Osvaldo Camacho [facility] CBC WITH DIFF 2019-11-12 20:52:00 Osvaldo Camacho [facility] URINALYSIS 2019-11-12 20:52:00 Osvaldo Camacho [facility] POCT TEST 2019-11-12 20:51:00 Osvaldo Camacho [facility] NOTICE OF PRIVACY 2019-11-12 20:09:02 Doctor Unassigned, No Univ [facility] PRACTICES Name [facility] Encounters Start End Encounter Admission Attending Care Care Encounter Source Date/Time Date/Time Type Type Clinicians Facility Department ID 2020-12-21 Outpatient [facility] [id number] Univers 16:33:05 ity Formerly [facility] 2020-12-21 Emergency [facility] [id number] Univers 03:14:37 ity of [facility] 2021-03-02 2021-03-02 Outpatient R [facility] [id number] Univers 15:30:00 15:30:00 [id number] ity Formerly [facility] 2021-03-02 2021-03-02 Outpatient R [facility] [id number] Univers 15:30:00 15:30:00 ity Formerly [facility] 2021-02-09 2021-02-09 Outpatient R [facility] [id number] -[id number] Univers 15:00:00 15:00:00 [id number] ity Formerly [facility] 2021-02-09 2021-02-09 Outpatient R [facility] [id number] Univers 15:00:00 15:00:00 ity Formerly [facility] 2020-12-08 2020-12-08 Nurse Visit, Arnoldo-Ariane Nurse [facility] 1.2 .840.114 [id number] Univers 15:00:16 15:26:04 Visit Danish Monahan MANAGER CHINESE 350.1.13.10 ity [facility] 4.2.7.2.686 [place] as MATERNAL [id number] Med ical & CHILD [address] [place] [address] 2020-12-08 2020-12-08 Outpatient R [facility] [id number] Univers 15:00:00 15:00:00 [id number] ity [facility]ly [facility] 2020-12-08 2020-12-08 Outpatient R [facility] [id number] Univers 15:00:00 15:00:00 ity Formerly [facility] 2020-12-08 2020-12-08 Orders Doctor SOLORZANO 1.2.840.114 [id number] Univers 00:00:00 00:00:00 Only Unassigned, JONNY 350.1.13.10 ity of [place] [facility] 4.2.7.2.686 [place] as [phone] [facility] [address] [place] 2020-11-03 2020-11-03 Letter AllRASHAD guadarrama 1.2.840.114 [id number] Univers 00:00:00 00:00:00 (Out) Kayla FULLER 350.1.13.10 it y of [facility] 4.2.7.2.686 [place] as [phone] [facility] [address] [place] 2020-11-01 2020-11-01 Laboratory Only, Ang Db Test [facility] 1.2.8 40.114 [id number] Univers 16:56:39 17:06:39 Only [place] [facility] 350.1.13.10 ity of [place] 4.2.7.2.686 [place] as Brian?Blea [phone] [address] Medical Office [facility] 2020-11-01 2020-11-01 Outpatient R [facility] [id number] Univers 16:50:00 16:50:00 [id number] ity of [facility] 2020-11-01 2020-11-01 Outpatient R [facility] [id number] Univers 16:50:00 16:50:00 ity [facility]ly [facility] 2020-10-08 2020-10-[address] [facility] 1.2.840.114 [id number] Univers 00:00:00 00:00:00 Management Danish Carr MANAGER CHINESE 350.1.13.10 ity of [facility] 4.2.7.2.686 [place] MATERNAL [phone] Med ical & CHILD [address] [place] [address] 2020-10-08 2020-10-08 Telephone Hero [place] 1.2.394.493 [id number] Univers 00:00:00 00:00:00 Danish R MANAGER CHINESE 350.1.13.10 ity of [facility] 4.2.7.2.686 [place] MATERNAL [id number] Med ical & CHILD [address] [place] [address] 2020-10-07 2020-10-[address] [facility] 1.2.840.114 [id number] Univers 00:00:00 00:00:00 Secure Msg Unassigned, MANAGER CHINESE 350.1.13.10 ity of [place] REGIONAL 4.2.7.2.686 [place] as MATERNAL [id number] [facility] & [address] 2020-09-15 2020-09-15 Nurse Visit, FrankoRmchp Nurse [facility] 1.2 .840.114 [id number] Univers 15:41:55 16:16:26 Visit Danish Monahan R MANAGER CHINESE 350.1.13.10 ity of REGIONAL 4.2.7.2.686 [place] MATERNAL [id number] [facility] & [address] 2020-09-15 2020-09-15 Outpatient R [facility] [id number] Univers 15:30:00 15:30:00 [id number] ity Formerly [facility] 2020-09-15 2020-09-15 Outpatient R [facility] [id number] Univers 15:30:00 15:30:00 ity of [facility] 2020-09-11 2020-09-11 Outpatient R [facility] [id number] Univers 15:30:00 15:30:00 [id number] ity Formerly [facility] 2020-09-11 2020-09-11 Outpatient R [facility] [id number] Univers 15:30:00 15:30:00 ity Formerly [facility] 2020-08-04 2020-08-[address] [facility] 1.2.840.114 [id number] Univers 15:01:43 16:06:53 Visit Danish Carr MANAGER CHINESE 350.1.13.10 ity of [facility] 4.2.7.2.686 [place] MATERNAL [id number] [facility] & CHILD [address] [place] [address] 2020-08-04 2020-08-04 Outpatient R HERO [facility] [id number] Univers 15:00:00 15:00:00 DANISH [id number] ity o f [facility] 2020-08-04 2020-08-04 [facility] [id number] Univers 15:00:00 15:00:00 DANISH ity o f [facility] 2020-07-14 2020-07-14 Routine Akinsipe, [facility] 1.2.317.549 [id number] Univers 12:53:45 13:33:26 Candy Gunderson MANAGER CHINESE 350.1.13.10 ity of Visit REGIONAL 4.2.7.2.686 [place] MATERNAL [id number] [facility] & [address] 2020-07-14 2020-07-14 Outpatient R AKINSIPE, [facility] [id number] Univers 12:45:00 12:45:00 CANDY [id number] ity o [facility] 2020-07-14 2020-07-14 Outpatient R AKINSIPE, [facility] [id number] Univers 12:45:00 12:45:00 CANDY ity o [facility] 2020-06-30 2020-06-30 Outpatient R [facility] [id number] -[id number] Univers 13:30:00 13:30:00 [id number] ity of [facility] 2020-06-30 2020-06-30 Outpatient R [facility] [id number] Univers 13:30:00 13:30:00 ity Formerly [facility] 2020-06-30 2020-06-30 Nurse Visit, [facility] Nurse [facility] 1.2 .840.114 [id number] Univers 13:23:49 13:23:56 Visit Danish Monahan MANAGER CHINESE 350.1.13.10 ity of REGIONAL 4.2.7.2.686 [place] as MATERNAL [phone] [facility] & CHILD [address] [place] [address] 2020-06-22 2020-06-23 Anesthesia Jesse Dewey 1.2. 840.114 [id number] Univers 23:31:00 22:20:00 Event Ronald Jean 350.1.13.10 [place] [id number] [address] 2020-06-23 2020-06-23 Surgery RASHAD [place] 1.2.840.114 [id number] Univers 20:15:00 22:12:00 Vania FULLER 350.1.13.10 i ty of [place] [id number] [facility] [address] [place] 2020-06-19 2020-06-19 Routine [facility] 1.2.525.598 [id number] Univers 16:13:07 16:44:21 Candy Gunderson MANAGER CHINESE 350.1.13.10 ity of Visit REGIONAL 4.2.7.2.686 [place] MATERNAL [id number] [facility] & [address] 2020-06-19 2020-06-19 Outpatient R [facility] [id number] Univers 16:00:00 16:00:00 CANDY [id number] ity o [facility] 2020-06-19 2020-06-19 Outpatient R [facility] [id number] Univers 16:00:00 16:00:00 [facility] 2020-06-18 2020-06-18 Telephone [facility] 1.2.748.915 [id number] Univers 00:00:00 00:00:00 Danish Carr MANAGER CHINESE 350.1.13.10 ity of REGIONAL 4.2.7.2.686 [place] MATERNAL [id number] [facility] & [address] 2020-06-16 2020-06-16 Outpatient [facility] [id number] Univers 14:45:00 14:45:00 DANISH [id number] ity o [facility] 2020-06-16 2020-06-16 [facility] [id number] Univers 14:45:00 14:45:00 TESSAA fritzy o [facility] 2020-06-11 2020-06-11 Nurse RASHAD Milligan 1.2.840.114 [id number] Univers 00:00:00 00:00:00 Triage Cece Dona JONNY 350.1.13.10 i ty of HOSPITAL 4.2.7.2.686 [place] as [phone] [address] 2020-06-09 2020-06-09 Outpatient R HERO [facility] [id number] -[id number] Univers 12:45:00 12:45:00 ROSHUNDA [id number] itmikael o f [facility] 2020-06-09 2020-06-09 Outpatient R HERO [facility] [id number] Univers 12:45:00 12:45:00 ROSNDA itmikael o [facility] 2020-06-03 2020-06-03 Outpatient R HERO [facility] [id number] Univers 09:45:00 09:45:00 ROSNDA [id number] ity o [facility] 2020-06-03 2020-06-03 Outpatient R HERO [facility] [id number] Univers 09:45:00 09:45:00 ROSHUNDA mikael o [facility] 2020-05-27 2020-05-27 Outpatient R HERO [facility] [id number] Univers 15:00:00 15:00:00 GHASSANNDA [id number] itmikael o [facility] 2020-05-27 2020-05-27 Outpatient R HERO [facility] [id number] Univers 15:00:00 15:00:00 [facility] mikael [facility] 2020-05-27 2020-05-27 [facility] 1.2.840.114 [id number] Univers 14:23:28 14:54:43 Roshunda R MANAGER CHINESE 350.1.13.10 ity of Visit REGIONAL 4.2.7.2.686 [place] as MATERNAL [phone] Med ical & CHILD [address] [place] [address] 2020-05-20 2020-05-20 [facility] 1.2.840.114 [id number] Univers 15:11:01 15:43:49 Roshunda R MANAGER CHINESE 350.1.13.10 ity of Visit REGIONAL 4.2.7.2.686 [place] as MATERNAL [id number] [facility] ical & CHILD [address] [place] [address] 2020-05-20 2020-05-20 Outpatient R HERO [facility] [id number] Univers 15:00:00 15:00:00 JOÃOJOSÉ MIGUEL [id number] ity o [facility] 2020-05-20 2020-05-20 Outpatient R HERO [facility] [id number] Univers 15:00:00 15:00:00 DANISH elise o [facility] 2020-05-14 2020-05-14 Outpatient Lilly MONAHAN [facility] [id number] Univers 15:00:00 15:00:00 GHASSANBUBBADona gosia o [facility] 2020-05-14 2020-05-14 Outpatient R HERO [facility] [id number] Univers 15:00:00 15:00:00 JOÃOJOSÉ MIGUEL [id number] itmikael o [facility] 2020-04-30 2020-04-30 [facility]ine [facility] 1.2.840.114 [id number] Univers 14:46:07 15:31:37 Danish Carr MANAGER CHINESE 350.1.13.10 ity of [facility] 4.2.7.2.686 [place] as MATERNAL [phone] Med ical & CHILD [address] [place] [address] 2020-04-30 2020-04-30 Outpatient Lilly MONAHAN [facility] [id number] Univers 15:00:00 15:00:00 JOÃOJOSÉ MIGUEL [id number] itmikael o [facility] 2020-04-30 2020-04-30 Outpatient [facility] [id number] Univers 15:00:00 15:00:00 GHASSANJOSÉ MIGUEL [facility] o [facility] 2020-04-24 2020-04-24 Emergency [facility] 1.2.897.722 [id number] Univers 13:24:00 14:53:00 Harpal Melendrez 350.1.13.10 i ty of [place] 4.2.7.2.686 [facility] [id number] [address] 2020-04-24 2020-04-24 Orders Doctor RASHAD 1.2.840.114 [id number] Univers 00:00:00 00:00:00 Only Unassigned, JONNY 350.1.13.10 ity of [place] [facility] 4.2.7.2.686 [place] as [phone] [address] 2020-04-16 2020-04-16 [facility]ine [facility] 1.2.840.114 [id number] Univers 13:30:56 13:45:56 Roshunda R MANAGER CHINESE 350.1.13.10 ity of Visit [facility] 4.2.7.2.686 [place] as MATERNAL [phone] Med ical & CHILD [address] [place] [address] 2020-04-16 2020-04-16 Outpatient R HERO [facility] [id number] Univers 13:30:00 13:30:00 ROSHUNDA [id number] ity o [facility] 2020-04-16 2020-04-16 Outpatient Lilly MONAHAN [facility] [id number] Univers 13:30:00 13:30:00 ROSHUNDA ity o [facility] 2020-04-14 2020-04-14 Outpatient Lilly MONAHAN [facility] [id number] Univers 12:45:00 12:45:00 ROSHUNDA [id number] ity o [facility] 2020-04-14 2020-04-14 Outpatient Lilly MONAHAN [facility] [id number] Univers 12:45:00 12:45:00 ROSHUNDA ity o [facility] 2020-03-31 2020-03-31 Outpatient R HERO [facility] [id number] Univers 08:30:00 08:30:00 ROSHUNDA [id number] ity o [facility] 2020-03-31 2020-03-31 Outpatient [facility] [id number] Univers 08:30:00 08:30:00 ROSHUNDA [facility] o [facility] 2020-03-17 2020-03-17 Routine [facility] 1.2.840.114 [id number] Univers 10:39:26 11:18:04 Roshunda R MANAGER CHINESE 350.1.13.10 ity of Visit [facility] 4.2.7.2.686 [place] MATERNAL [id number] [facility] ical & CHILD [address] [place] [address] 2020-03-17 2020-03-17 Outpatient R HERO [facility] [id number] Univers 11:00:00 11:00:00 ROSANGELITONDA [id number] ity o f [facility] 2020-03-17 2020-03-17 Outpatient R HERO [facility] [id number] Univers 11:00:00 11:00:00 ROSHUNDA ity o f [facility] 2020-02-27 2020-02-[address] 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, [facility] 1.2 .840.114 [id number] Univers 13:49:18 15:04:18 Visit Abhishek Fragoso MANAGER CHINESE 350.1.13.10 ity of REGIONAL 4.2.7.2.686 [place] MATERNAL [id number] Med ical & CHILD [facility] 2020-02-26 2020-02-26 Outpatient P [facility] [id number] Univers 14:00:00 14:00:00 [id number] ity [facility]ly [facility] 2020-02-26 2020-02-26 Outpatient P [facility] [id number] Univers 14:00:00 14:00:00 ity of [facility] 2020-02-25 2020-02-25 Routine [facility] 1.2.840.114 [id number] Univers 08:30:53 09:07:35 Rosjonathon R MANAGER CHINESE 350.1.13.10 ity of Visit REGIONAL 4.2.7.2.686 [place] as MATERNAL [id number] [facility] & CHILD [address] [place] [address] 2020-02-25 2020-02-25 Outpatient [facility] [id number] Univers 08:15:00 08:15:00 ROSANGELITONDA [id number] ity o f [facility] 2020-02-25 2020-02-25 Outpatient R MONAHAN [facility] [id number] Univers 08:15:00 08:15:00 JOÃONDA ity o f [facility] 2020-02-07 2020-02-[address] [facility] 1.2.840.114 [id number] Univers 00:00:00 00:00:00 Unassigned, MANAGER CHINESE 350.1.13.10 ity of [place] [facility] 4.2.7.2.686 [place] as MATERNAL [phone] Med ical & CHILD [address] [place] [address] 2020-02-05 2020-02-05 [facility]phone [facility] 1.2.616.211 [id number] Univers 00:00:00 00:00:00 Danish R MANAGER CHINESE 350.1.13.10 ity of [facility] 4.2.7.2.686 [place] MATERNAL [id number] Med ical & CHILD [address] [place] [address] 2020-02-04 2020-02-04 Outpatient R [facility] [id number] Univers 09:30:00 09:30:00 [id number] ity of [facility] 2020-02-04 2020-02-04 Outpatient P [facility] [id number] Univers 09:30:00 09:30:00 ity of [facility] 2020-01-31 2020-01-31 Axis [facility] 1.2.378.463 [id number] Univers 00:00:00 00:00:00 Danish R MANAGER CHINESE 350.1.13.10 ity of [facility] 4.2.7.2.686 [place] MATERNAL [id number] [facility] ical & CHILD [address] [place] [address] 2020-01-28 2020-01-28 [facility]patient [facility] [id number] Univers 10:15:00 10:15:00 DANISH ity o f [facility] 2020-01-28 2020-01-28 Outpatient [facility] [id number] Univers 10:15:00 10:15:00 JOÃONDDona ity o f [facility] 2020-01-28 2020-01-28 Routine [facility] 1.2.840.114 [id number] Univers 09:21:49 09:36:49 Roshunda R MANAGER CHINESE 350.1.13.10 ity of Visit REGIONAL 4.2.7.2.686 [place] as MATERNAL [phone] [facility] ical & CHILD [address] [place] [address] 2020-01-01 2020-01-[address] [facility] 1.2.840.114 [id number] Univers 00:00:00 00:00:00 Unassigned, MANAGER CHINESE 350.1.13.10 ity of [place] 4.2.7.2.686 [place] as MATERNAL [id number] [facility] & CHILD [address] [place] [address] 2019-12-31 2019-12-[address] [facility] 1.2.840.114 [id number] Univers 13:31:08 14:07:59 Roshunda R MANAGER CHINESE 350.1.13.10 ity of Visit REGIONAL 4.2.7.2.686 [place] as MATERNAL [id number] 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 1.2 .840.114 [id number] Univers 12:49:51 14:04:51 Visit Abhishek Fragoso MANAGER CHINESE 350.1.13.10 ity of REGIONAL 4.2.7.2.686 [place] as MATERNAL [id number] [facility] & CHILD [facility] 2019-12-31 2019-12-31 Outpatient R [facility] [id number] Univers 13:00:00 13:00:00 ity of [facility] 2019-12-31 2019-12-31 Outpatient P [facility] [id number] Univers 13:00:00 13:00:00 ity of [facility] 2019-12-31 2019-12-[address] [facility] 1.2.840.114 [id number] Univers 00:00:00 00:00:00 Roshunda R MANAGER CHINESE 350.1.13.10 ity of [place]ION[place] 4.2.7.2.686 [place] MATERNAL [phone] [facility] ical & CHILD [address] [place] [address] 2019-12-24 2019-12-24 Outpatient Lilly MONAHAN [facility] [id number] Univers 09:30:00 09:30:00 ROSHUNDA ity o f [facility] 2019-12-24 2019-12-24 Outpatient Lilly MONAHAN [facility] [id number] Univers 09:30:00 09:30:00 ROSHUNDA ity o f [facility] 2019-12-03 2019-12-03 [facility]is [facility] 1.2.130.958 [id number] Univers 00:00:00 00:00:00 Roshunda R MANAGER CHINESE 350.1.13.10 ity of [place]ION[place] 4.2.7.2.686 [place] as MATERNAL [id number] [facility] & [address] 2019-11-29 2019-11-29 Axis [facility] 1.2.379.261 [id number] Univers 00:00:00 00:00:00 Roshunda R MANAGER CHINESE 350.1.13.10 ity of REGIONAL 4.2.7.2.686 [place] as MATERNAL [id number] [facility] & [address] 2019-11-28 2019-11-28 Axis [facility] 1.2.726.846 [id number] Univers 00:00:00 00:00:00 Roshunda R MANAGER CHINESE 350.1.13.10 ity of REGIONAL 4.2.7.2.686 [place] as MATERNAL [id number] [facility] & [address] 2019-11-28 2019-11-28 Axis [facility] 1.2.127.848 [id number] Univers 00:00:00 00:00:00 Roshunda R MANAGER CHINESE 350.1.13.10 ity of REGIONAL 4.2.7.2.686 [place] as MATERNAL [id number] [facility] & CHILD [address] [place] [address] 2019-11-26 2019-11-26 [facility] 1.2.840.114 [id number] Univers 08:50:17 10:43:51 Roshunda R MANAGER CHINESE 350.1.13.10 ity of Visit [facility] 4.2.7.2.686 [place] as MATERNAL [phone] Med ical & CHILD 107 [facility] 2019-11-26 2019-11-26 Outpatient R [facility] [id number] Univers 09:00:00 09:00:00 DANISH ity o f [facility] 2019-11-26 2019-11-26 Orders Doctor RASHAD [id number] [id number] Univers 00:00:00 00:00:00 Only Unassigned, JONNY [id number] ity of [place] [facility] [id number] [place] as [phone] [facility] [address] [place] 2019-11-12 2019-11-[address] [facility] [id number] Univers 15:23:00 18:55:00 Osvaldo Higgins [place] [id number] ity of [place] [id number] [facility] [phone] [facility] 084 [place] 2019-11-12 2019-11-[address] [facility] ERT [id number] [employer] 15:10:00 15:10:00 ity of [facility] 2018-08-09 2018-08-09 Emergency [facility] MED [id number] [place] 20:42:00 20:42:00 [facility] 2018-08-09 2018-08-09 Emergency [facility] MED [id number] [place] 14:50:00 14:50:00 [facility] 2017-11-02 2017-11-02 Emergency [facility] [id number] [place] 13:39:00 13:39:00 [facility] 2016-11-13 2016-11-13 Emergency E [facility] MED [id number] 12:25:00 12:25:00 [facility] 2012-03-03 2012-03-03 Outpatient [facility] [id number] [place] 07:35:53 07:35:53 Health Results Test Description Test Time Test Comments Results Result Comments Source RHO (D) IMMUNE GLOBULIN 2020-06-24 14:09:43 Test Item Value Reference Range Interpretation Comme nts RHIG CANDIDATE? (test code = No- see comment Patient is not a candidate for RhIg- 5055) Patient is Rh P ositive.Performed at [facility] Laboratory Services - [facility] Blood [address] [place] [address] 90085Lfgj Free: [phone] A No. [id number] [facility] WITH [id number] 12:22:00 Test Item Value Reference Range Interpretation Comments WBC (test code = See_Comment H [Automated 6690-2) message] The system which generated this result transmitted reference range : 4.30 - 11.10 10*3/?L. The reference range was not used to interpret this result as normal/abnormal . RBC (test code = See_Comment L [Automated 789-8) message] The system which generated this result transmitted reference range : 3.93 - 5.25 10*6/?L. The reference range was not used to interpret this result as normal/abnormal . HGB (test code = 9.5 g/dL 11.6-15.0 L 718-7) HCT (test code = 27.3 % 35.7-45.2 L 4544-3) MCV (test code = 91.3 fL 80.6-95.5 787-2) MCH (test code = 31.8 pg 25.9-32.8 785-6) MCHC (test code = 34.8 g/dL 31.6-35.1 786-4) RDW-SD (test code = 41.1 fL 39.0-49.9 28171-5) RDW-CV (test code = 12.5 % 12.0-15.5 788-0) PLT (test code = See_Comment L [Automated 777-3) message] The system which generated this result transmitted reference range : 166 - 358 10*3/?L. The reference range was not used to interpret this result as normal/abnormal . MPV (test code = 11.2 fL 9.5-12.9 39057-0) NRBC/100 WBC (test See_Comment [Automat ed code = 1835093772) message] The system which generated this result transmitted reference range : 0.0 - 10.0 /100 WBCs. The reference range was not used to interpret this result as normal/abnormal . NRBC x10^3 (test code <0.01 See_Comment [Auto mated = 2262653050) message] The system which generated this result transmitted reference range : 10*3/?L. The reference range was not used to interpret this result as normal/abnormal . GRAN MAT (NEUT) % 88.6 % (test code = 770-8) IMM GRAN % (test code 0.50 % = 9998705499) LYMPH % (test code = 6.4 % 736-9) MONO % (test code = 4.4 % 5905-5) EOS % (test code = 0.0 % 713-8) BASO % (test code = 0.1 % 706-2) GRAN MAT x10^3(ANC) 18.66 10*3/uL 1.88-7.09 H (test code = 8176205061) IMM GRAN x10^3 (test 0.11 10*3/uL 0.00-0.06 H code = 6066157625) LYMPH x10^3 (test 1.34 10*3/uL 1.32-3.29 code = 731-0) MONO x10^3 (test code 0.93 10*3/uL 0.33-0.92 H = 742-7) EOS x10^3 (test code <0.03 0.03-0.39 L = 711-2) BASO x10^3 (test code 0.03 10*3/uL 0.01-0.07 = 704-7) BANDS (test code = MARKED INCREASED A 3382173070) Lab Interpretation Abnormal (test code = 79159-1) [facility] Center[facility] CREAT Ratio Urine [id number] 02:14:23 Test Item Value Reference Range Interpretation Comments T. PROT U (test >1000 mg/dL Urine protei n is 1289 code = 2888-6) mg/dL with ex tended dilution. CREAT U (test code 223.7 mg/dL = 5354217154) Protein/Creatinine Unable to calculate Ratio Urine (test because, e ither urine code = 8180245100) total pro tein, urine creatinine, or both are greater than e linearity of e analyzer. [facility] CenterLactate Jmlepckodnnwk0709-19-06 00:26:39 Test Item Value Reference Range Interpretation Comments LDH (test code = 2624424027) 546 U/L 300-600 Lab Interpretation (test code = Normal 03466-5) [facility] CenterUric Acid Eukay0622-06-93 00:26:23 Test Item Value Reference Range Interpretation Comments URIC ACID (test code = 7509191156) 7.0 mg/dL 2.9-6.0 H Lab Interpretation (test code = Abnormal 34985-3) [facility] CenterSerum Arqjcfpdfo0596-12-01 00:26:23 Test Item Value Reference Range Interpretation Comments CREATININE (test code 1.03 mg/dL 0.50-1.04 = 7035659064) eGFR (test code = mL/min/1.73m2 4644176928) LORETTA (test code = LORETTA) Association of Glomerular Filtration Rate (GFR) and Staging of Kidney Disease* + + +- +| GFR (mL/min/1.73 m2) ?| With Kidney Damage ?| ?Without Kidney Damage+ ------+ ----+ ------+| ?>90 ?| ?Stage one ?| ? Normal ?+ -+ + -+| ?60-89 ?| ?Stage two ?| ? Decreased GFR ? + + +- +| ?30-59 ?| ?Stage three ?| ? Stage three ? + + +- +| ?15-29 ?| ?Stage four ? | ? Stage four ?+ -+ + -+| ?<15 (or dialysis) ? ?| ?Stage five ? | ? Stage five ?+ -+ + -+ *Each stage assumes the associated GFR level has been in effect for at least three months. ?Stages 1 to 5, with or without kidney disease, indicate chronic kidney disease. Notes: Determination of stages one and two (with eGFR >59mL/min/1.73 m2) requires estimation of kidney damage for at least three months as defined by structural or functional abnormalities of the kidney, manifested by either:Pathological abnormalities or Markers of kidney damage (including abnormalities in the composition of the blood or urine or abnormalities in imaging tests). [facility] BranchSG[facility] (Asparate Amino Transfer)2020-06-24 00:26:23 Test Item Value Reference Range Interpretation Comments AST(SGOT) (test code = 2130534588) 24 U/L 13-40 Lab Interpretation (test code = Normal 15829-4) [facility] CenterAlanine Amino Transferase (SGPT)2020-06-24 00:26:23 Test Item Value Reference Range Interpretation Comments ALTv (test code = 1742-6) 19 U/L 5-35 Lab Interpretation (test code = Normal 45185-7) [facility] CenterUrinalysis2021-05-04 00:22:28 Test Item Value Reference Range Interpretation Comments APPEARANCE (test code = Cloudy Clear A 8667421288) COLOR (test code = [place] Yellow A 9301309143) PH (test code = 4.8-8.0 5614957602) SP GRAVITY (test code = 1.003-1.030 9873498877) GLU U QUAL (test code = Normal Normal 4595890759) BLOOD (test code = 3+ Negative A 4912599823) KETONES (test code = Negative Negative 1089901858) PROTEIN (test code = 100 mg/dL Negative A 2887-8) UROBILIN (test code = Normal Normal 5568865591) BILIRUBIN (test code = Negative Negative 2638593478) NITRITE (test code = Negative Negative 0831200660) LEUK ANTWON (test code = 25/uL Negative A 3287299852) RBC/HPF (test code = >182 See_Comment H [Autom ated message] 8522416892) The system [employer] generated this result transmit vilma reference range : 0 - 3 HPF. The refe rence range was not u sed to interpret th is result as normal/abnormal . WBC/HPF (test code = See_Comment H [Autom ated message] 3714917608) The system [employer] generated this result transmit vilma reference range : 0 - 5 HPF. The refe rence range was not u sed to interpret th is result as normal/abnormal . BACTERIA (test code = Negative Negative 2362252633) MUCOUS (test code = Marked Negative LPF A 2840825878) Lab Interpretation (test Abnormal code = 55839-0) [facility] CenterCBC with Lluuiqjwunrz3660-00-90 00:18:18 Test Item Value Reference Range Interpretation Comments WBC (test code = See_Comment H [Automated 6690-2) message] The system which generated this result transmit vilma reference range : 4.30 - 11.10 10*3/?L. The reference range was not used to interpret this result as normal/abnormal . RBC (test code = See_Comment L [Automated 789-8) message] The system which generated this result transmit vilma reference range : 3.93 - 5.25 10*6/?L. The reference range was not used to interpret this result as normal/abnormal . HGB (test code = 10.9 g/dL 11.6-15.0 L 718-7) HCT (test code = 31.5 % 35.7-45.2 L 4544-3) MCV (test code = 90.3 fL 80.6-95.5 787-2) MCH (test code = 31.2 pg 25.9-32.8 785-6) MCHC (test code = 34.6 g/dL 31.6-35.1 786-4) RDW-SD (test code = 40.3 fL 39.0-49.9 48377-5) RDW-CV (test code = 12.5 % 12.0-15.5 788-0) PLT (test code = See_Comment L [Automated 777-3) message] The system which generated this result transmit vilma reference range : 166 - 358 10*3/ ?L. The reference range was not u sed to interpret th is result as normal/abnormal . MPV (test code = 11.0 fL 9.5-12.9 60115-1) NRBC/100 WBC (test See_Comment [Automat ed code = 7383931315) message] The system which generated this result transmit vilma reference range : 0.0 - 10.0 /100 WBCs. The reference range was not used to interpret this result as normal/abnormal . NRBC x10^3 (test code <0.01 See_Comment [Auto mated = 4718311759) message] The system which generated this result transmit vilma reference range : 10*3/?L. The reference range was not used to interpret this result as normal/abnormal . GRAN MAT (NEUT) % 88.6 % (test code = 770-8) IMM GRAN % (test code 0.40 % = 5412611069) LYMPH % (test code = 6.1 % 736-9) MONO % (test code = 4.6 % 5905-5) EOS % (test code = 0.1 % 713-8) BASO % (test code = 0.2 % 706-2) GRAN MAT x10^3(ANC) 11.73 10*3/uL 1.88-7.09 H (test code = 1822265394) IMM GRAN x10^3 (test 0.05 10*3/uL 0.00-0.06 code = 7212779989) LYMPH x10^3 (test code 0.81 10*3/uL 1.32-3.29 L = 731-0) MONO x10^3 (test code 0.61 10*3/uL 0.33-0.92 = 742-7) EOS x10^3 (test code = <0.03 0.03-0.39 L 711-2) BASO x10^3 (test code <0.03 0.01-0.07 = 704-7) Lab Interpretation Abnormal (test code = 02898-6) [facility] CenterGALV ONLY - SYPHILIS IGG/[id number] 18:40:09 Test Item Value Reference Range Interpretation Comments Syphilis IgG/IgM (test Non-reactive Non-reactive code = 88510-9) LORETTA (test code = LORETTA) Non-reactive - No serologic evidence of T. pallidum infection. Cannot exclude incubating or early syphilis. Submit a second specimen in 2-4 weeks if syphilis is clinically suspected. Equivocal - Further testing to follow. Reactive - Further testing to follow. Lab Interpretation (test Normal code = 35463-6) [facility] CenterCentral Neuraxial Qvkpm4980-35-51 05:10:15 Jesse Dewey MD ? ? 06/23/2020 12:11 AM Central Neuraxial Block Performed by: Jesse Dewey MDAuthorized by: Elina Rojo MD Reason for Block: ?OB request, Patient request and Labor analgesiaStaff: ?Resident/GUM ROLLING MACHINE OPERATOR: ?Cholo Urrutia MD patient identified, IV checked, risks and benefits explained, monitors and equipment checked, timeout performed, ob surgical consent/approval, pre-op evaluation, surgical consent, site marked and anesthesia consentEpidural: ?Patient Position: ?Sitting ?Prep: Betadine ? ?Monitoring: ?Heart rate, continuous pulse ox, heart rate / toco and NIBP ?Location: ?Lumbar (1-5) ?Lumbar: ?L3-L4 ?Approach: ?MidlineNeedle and Epidural Catheter: ?Epidural Kit: ?BBraun ?Needle Type: ?Tuohy ?Needle Length: ?3.5 in (8.89 cm) ?Needle Insertion Depth: ?7.5 Assessment: ?Sensory Level: ?Below Q64Teyyd: ? Patient identified; pre-procedure verification.Patient prepped and draped in standard sterile fashion using betadine x 3Subcutaneous infiltration with 1% Lidocaine LASHAY at 7.5 cm; catheter secured at 12.5 cm with mastisol, tegaderm x2 and 3-inch clear tape.Aspiration test negative x 3Test dose negativePatient tolerated procedure well with no immediate complications Epidural expectations; PCEA explained and fall precautions given.[facility] CenterHIV 1/2 AG-AB WITH [id number] 16:41:51 Test Item Value Reference Range Interpretation Comments HIV Negative Negative Semi-quantitative (test code = 62273-8) LORETTA (test code = Non-reactive for HIV-1 LORETTA) antigen and HIV-1/HIV-2 antibodies. ?No laboratory evidence of HIV infection. ?Repeat in 2-4 weeks if acute HIV infection is suspected. [facility] CenterHepatitis B Surface Qttdyuk5250-67-34 16:32:31 Test Item Value Reference Range Interpretation Comments HBsAg Semi-Quantitative (test code = Negative Negative 5195-3) [facility] CenterAST (Aspartate Amino Transfer ; SGOT) 2020-06-22 16:00:11 Test Item Value Reference Range Interpretation Comments AST(SGOT) (test code = 8539614487) 33 U/L 13-40 Lab Interpretation (test code = Normal 78954-6) [facility] CenterALT (Alanine Amino Transeferase ; SGPT) 2020-06-22 16:00:11 Test Item Value Reference Range Interpretation Comments ALTv (test code = 1742-6) 27 U/L 5-35 Lab Interpretation (test code = Normal 60575-0) [facility] CenterCreatinine [id number] 16:00:11 Test Item Value Reference Range Interpretation Comments CREATININE (test code 0.77 mg/dL 0.50-1.04 = 3639184157) eGFR (test code = mL/min/1.73m2 2983263038) LORETTA (test code = LORETTA) Association of Glomerular Filtration Rate (GFR) and Staging of Kidney Disease* + + +- +| GFR (mL/min/1.73 m2) ?| With Kidney Damage ?| ?Without Kidney Damage+ ------+ ----+ ------+| ?>90 ?| ?Stage one ?| ? Normal ?+ -+ + -+| ?60-89 ?| ?Stage two ?| ? Decreased GFR ? + + +- +| ?30-59 ?| ?Stage three ?| ? Stage three ? + + +- +| ?15-29 ?| ?Stage four ? | ? Stage four ?+ -+ + -+| ?<15 (or dialysis) ? ?| ?Stage five ? | ? Stage five ?+ -+ + -+ *Each stage assumes the associated GFR level has been in effect for at least three months. ?Stages 1 to 5, with or without kidney disease, indicate chronic kidney disease. Notes: Determination of stages one and two (with eGFR >59mL/min/1.73 m2) requires estimation of kidney damage for at least three months as defined by structural or functional abnormalities of the kidney, manifested by either:Pathological abnormalities or Markers of kidney damage (including abnormalities in the composition of the blood or urine or abnormalities in imaging tests). [facility] CenterUric Acid [id number] 16:00:11 Test Item Value Reference Range Interpretation Comments URIC ACID (test code = 3560817157) 7.3 mg/dL 2.9-6.0 H Lab Interpretation (test code = Abnormal 26231-6) [facility] CenterLactate Fslybwedxodtp4436-08-17 16:00:10 Test Item Value Reference Range Interpretation Comments LDH (test code = 7523211409) 599 U/L 300-600 Lab Interpretation (test code = Normal 27883-9) [facility] CenterUrinalysis2021-05-02 15:46:35 Test Item Value Reference Range Interpretation Comments APPEARANCE (test code = Cloudy Clear A 4608659041) COLOR (test code = Yellow Yellow 5072903952) PH (test code = 4.8-8.0 9050788000) SP GRAVITY (test code = 1.003-1.030 9557578856) GLU U QUAL (test code = Normal Normal 8037390043) BLOOD (test code = Negative Negative 1670620852) KETONES (test code = Negative Negative 3037897641) PROTEIN (test code = Negative Negative 2887-8) UROBILIN (test code = Normal Normal 0941373724) BILIRUBIN (test code = Negative Negative 6571080512) NITRITE (test code = Negative Negative 2012242956) LEUK ANTWON (test code = 500/uL Negative A 1047676785) RBC/HPF (test code = See_Comment H [Autom ated message] 5030442234) The system [employer] generated this result transmitted ref erence range: 0 - 3 HP F. The reference range was not used to int erpret this result as normal/abnormal . WBC/HPF (test code = See_Comment H [Autom ated message] 6530298112) The system [employer] generated this result transmitted ref erence range: 0 - 5 HP F. The reference range was not used to int erpret this result as normal/abnormal . BACTERIA (test code = Many Negative A 9012234491) MUCOUS (test code = Slight Negative LPF A 5378153872) SQ EPITH (test code = See_Comment H [Auto mated message] 8104931755) The system [employer] generated this result transmitted ref erence range: <=2 HPF. The reference range was not used to int erpret this result as normal/abnormal . ASCORBIC ACID (test code Negative = 1287659861) Lab Interpretation (test Abnormal code = 29588-4) [facility] CenterType and Screen - ONCE [id number] 15:35:45 Test Item Value Reference Range Interpretation Comments ABO & RH (test code A POSITIVE Performe d at [facility] = 20) Laboratory Serv [facility] Blood Bank[address] [place] [address]Vedm Free: [phone] A No. [id number] IAT (test code = Negative Performed a t [facility] 1185) Laboratory Serv [facility] Blood [facility] [address] [facility] [address]Rlsv Free: [phone] A No. [id number] [facility] CenterProtein Creat Ratio Urine Iulqmm9037-84-79 15:25:07 Test Item Value Reference Range Interpretation Comments T. PROT U (test code = 2888-6) 14 mg/dL CREAT U (test code = 9858880720) 172.5 mg/dL Protein/Creatinine Ratio Urine 0.0-2.0 (test code = 7621140023) [facility] CenterCBC with Xkpvzpegbkwg8125-53-92 15:14:28 Test Item Value Reference Range Interpretation Comments WBC (test code = See_Comment [Automated 3890-2) message] The sy stem which generated this result transmitted reference range : 4.30 - 11.10 10*3/?L. The reference range was not used to interpret this result as normal/abnormal . RBC (test code = See_Comment L [Automated 729-8) message] The sy stem which generated this result transmitted reference range : 3.93 - 5.25 10*6/?L. The reference range was not used to interpret this result as normal/abnormal . HGB (test code = 11.4 g/dL 11.6-15.0 L 718-7) HCT (test code = 32.7 % 35.7-45.2 L 4544-3) MCV (test code = 91.1 fL 80.6-95.5 787-2) MCH (test code = 31.8 pg 25.9-32.8 785-6) MCHC (test code = 34.9 g/dL 31.6-35.1 786-4) RDW-SD (test code = 40.4 fL 39.0-49.9 27772-7) RDW-CV (test code = 12.4 % 12.0-15.5 788-0) PLT (test code = See_Comment [Automated 777-3) message] The sy stem which generated this result transmitted reference range : 166 - 358 10*3/ ?L. The reference r william was not used to interpret this result as normal/abnormal . MPV (test code = 11.2 fL 9.5-12.9 62236-2) NRBC/100 WBC (test See_Comment [Automat ed code = 1126591027) message] The system which generated this result transmitted reference range : 0.0 - 10.0 /100 WBCs. The refer ence range was not u sed to interpret th is result as normal/abnormal . NRBC x10^3 (test code <0.01 See_Comment [Auto mated = 0092039945) message] The s ystem which generated this result transmitted reference range : 10*3/?L. The reference range was not used to interpret this result as normal/abnormal . GRAN MAT (NEUT) % 66.0 % (test code = 770-8) IMM GRAN % (test code 0.30 % = 6149344732) LYMPH % (test code = 24.6 % 736-9) MONO % (test code = 7.6 % 5905-5) EOS % (test code = 1.1 % 713-8) BASO % (test code = 0.4 % 706-2) GRAN MAT x10^3(ANC) 6.51 10*3/uL 1.88-7.09 (test code = 1311976547) IMM GRAN x10^3 (test 0.03 10*3/uL 0.00-0.06 code = 9142954271) LYMPH x10^3 (test code 2.43 10*3/uL 1.32-3.29 = 731-0) MONO x10^3 (test code 0.75 10*3/uL 0.33-0.92 = 742-7) EOS x10^3 (test code = 0.11 10*3/uL 0.03-0.39 711-2) BASO x10^3 (test code 0.04 10*3/uL 0.01-0.07 = 704-7) Lab Interpretation Abnormal (test code = 00739-1) [facility] CenterCOVID-19 (ID NOW RAPID TESTING)2020-06-22 13:34:03 Test Item Value Reference Range Interpretation Comments SARS-CoV-2 Rapid ID NOW Not Detected Not Detected (test code = 43287-9) LORETTA (test code = LORETTA) ID NOW COVID-19 Assay is an isothermal nucleic acid amplification test intended for the qualitative detection of nucleic acid from SARS-CoV-2 viral RNA in nasopharyngeal (RESIDENTIAL INTERIOR DESIGNER) specimens. It is used under Emergency Use Authorization (EUA) by FDA. The limit of detection (LOD) of the assay is 125 Genome Equivalents/mL. A positive result is indicative of the presence of SARS-CoV-2 RNA. ?Clinical correlation with patient history and other diagnostic information is necessary to determine patient infection status. A negative (Not Detected) result does not preclude SARS-CoV-2 infection. In patients with clinical symptoms and other tests that are consistent with SARS-CoV-2 infection, negative results should be treated as presumptive negative and a new specimen should be tested with alternative PCR molecular test. Invalid: Please collect a new specimen for repeat patient testing if clinically indicated. Lab Interpretation Normal (test code = 91806-3) [facility] URINALYSIS W/O SPECIFIC [id number] 21:24:00 Test Item Value Reference Range Interpretation Comments POCT PH U (test code = 3254) . 5-8 POCT U LEUK EST (test code = . Negative - Negative 3) POCT U NIT (test code = 3262) . Negative - Negative POCT U PROT (test code = 3259) negative Negative - Negative POCT U GLU (test code = 3256) negative Negative - Negative POCT U KETONE (test code = 3258) . Negative - Negative POCT U BLD (test code = 3257) . Negative - Negative [facility] URINALYSIS W SPECIFIC [id number] 19:30:00 Test Item Value Reference Range Interpretation Comments POCT U SP GRAV (test code = . 1.005-1.025 5) POCT PH U (test code = 3254) . 5-8 POCT U LEUK EST (test code = . Negative - Negative 3263) POCT U NIT (test code = 3262) . Negative - Negative POCT U PROT (test code = 3259) trace Negative - Negative POCT U GLU (test code = 3256) negative Negative - Negative POCT U KETONE (test code = 3258) . Negative - Negative POCT U UROBILI (test code = . 0.2-1 3260) POCT U BILI (test code = 3261) . Negative - Negative POCT U BLD (test code = 3257) . Negative - Negative POCT U COLOR (test code = 3266) POCT U APPEAR (test code = 3267) [facility] URINALYSIS W SPECIFIC [id number] 20:27:00 Test Item Value Reference Range Interpretation Comments POCT U SP GRAV (test code = . 1.005-1.025 3255) POCT PH U (test code = 3254) . 5-8 POCT U LEUK EST (test code = . Negative - Negative 3263) POCT U NIT (test code = 3262) . Negative - Negative POCT U PROT (test code = 3259) trace Negative - Negative POCT U GLU (test code = 3256) negative Negative - Negative POCT U KETONE (test code = 3258) . Negative - Negative POCT U UROBILI (test code = . 0.2-1 3260) POCT U BILI (test code = 3261) . Negative - Negative POCT U BLD (test code = 3257) . Negative - Negative POCT U COLOR (test code = 3266) POCT U APPEAR (test code = 3267) [facility] URINALYSIS W SPECIFIC [id number] 19:50:00 Test Item Value Reference Range Interpretation Comments POCT U SP GRAV (test code = 3255) . 1.005-1.025 POCT PH U (test code = 3254) . 5-8 POCT U LEUK EST (test code = 3263) . Negative - Negative POCT U NIT (test code = 3262) . Negative - Negative POCT U PROT (test code = 3259) trace Negative - Negative POCT U GLU (test code = 3256) neg Negative - Negative POCT U KETONE (test code = 3258) . Negative - Negative POCT U UROBILI (test code = 3260) . 0.2-1 POCT U BILI (test code = 3261) . Negative - Negative POCT U BLD (test code = 3257) . Negative - Negative POCT U COLOR (test code = 3266) POCT U APPEAR (test code = 3267) [facility] URINALYSIS W SPECIFIC [id number] 16:54:00 Test Item Value Reference Range Interpretation Comments POCT U SP GRAV (test code = 3255) . 1.005-1.025 POCT PH U (test code = 3254) . 5-8 POCT U LEUK EST (test code = 3263) . Negative - Negative POCT U NIT (test code = 3262) . Negative - Negative POCT U PROT (test code = 3259) Trace Negative - Negative POCT U GLU (test code = 3256) Neg Negative - Negative POCT U KETONE (test code = 3258) . Negative - Negative POCT U UROBILI (test code = 3260) . 0.2-1 POCT U BILI (test code = 3261) . Negative - Negative POCT U BLD (test code = 3257) . Negative - Negative POCT U COLOR (test code = 3266) POCT U APPEAR (test code = 3267) [facility] URINALYSIS W SPECIFIC [id number] 16:54:00 Test Item Value Reference Range Interpretation Comments POCT U SP GRAV (test code = 3255) . 1.005-1.025 POCT PH U (test code = 3254) . 5-8 POCT U LEUK EST (test code = 3263) . Negative - Negative POCT U NIT (test code = 3262) . Negative - Negative POCT U PROT (test code = 3259) Trace Negative - Negative POCT U GLU (test code = 3256) Neg Negative - Negative POCT U KETONE (test code = 3258) . Negative - Negative POCT U UROBILI (test code = 3260) . 0.2-1 POCT U BILI (test code = 3261) . Negative - Negative POCT U BLD (test code = 3257) . Negative - Negative POCT U COLOR (test code = 3266) POCT U APPEAR (test code = 3267) [facility] URINALYSIS W SPECIFIC [id number] 16:54:00 Test Item Value Reference Range Interpretation Comments POCT U SP GRAV (test code = 3255) . 1.005-1.025 POCT PH U (test code = 3254) . 5-8 POCT U LEUK EST (test code = 3263) . Negative - Negative POCT U NIT (test code = 3262) . Negative - Negative POCT U PROT (test code = 3259) Trace Negative - Negative POCT U GLU (test code = 3256) Neg Negative - Negative POCT U KETONE (test code = 3258) . Negative - Negative POCT U UROBILI (test code = 3260) . 0.2-1 POCT U BILI (test code = 3261) . Negative - Negative POCT U BLD (test code = 3257) . Negative - Negative POCT U COLOR (test code = 3266) POCT U APPEAR (test code = 3267) [facility] URINALYSIS W SPECIFIC [id number] 14:45:00 Test Item Value Reference Range Interpretation Comments POCT U SP GRAV (test code = 3255) . 1.005-1.025 POCT PH U (test code = 3254) . 5-8 POCT U LEUK EST (test code = 3263) . Negative - Negative POCT U NIT (test code = 3262) . Negative - Negative POCT U PROT (test code = 3259) trace Negative - Negative POCT U GLU (test code = 3256) neg Negative - Negative POCT U KETONE (test code = 3258) . Negative - Negative POCT U UROBILI (test code = 3260) . 0.2-1 POCT U BILI (test code = 3261) . Negative - Negative POCT U BLD (test code = 3257) . Negative - Negative POCT U COLOR (test code = 3266) POCT U APPEAR (test code = 3267) [facility] URINALYSIS W SPECIFIC [id number] 15:47:00 Test Item Value Reference Range Interpretation Comments POCT U SP GRAV (test code = 3255) . 1.005-1.025 POCT PH U (test code = 3254) . 5-8 POCT U LEUK EST (test code = 3263) . Negative - Negative POCT U NIT (test code = 3262) . Negative - Negative POCT U PROT (test code = 3259) trace Negative - Negative POCT U GLU (test code = 3256) neg Negative - Negative POCT U KETONE (test code = 3258) . Negative - Negative POCT U UROBILI (test code = 3260) . 0.2-1 POCT U BILI (test code = 3261) . Negative - Negative POCT U BLD (test code = 3257) . Negative - Negative POCT U COLOR (test code = 3266) . POCT U APPEAR (test code = 3267) [facility] URINALYSIS W SPECIFIC [id number] 15:47:00 Test Item Value Reference Range Interpretation Comments POCT U SP GRAV (test code = 3255) . 1.005-1.025 POCT PH U (test code = 3254) . 5-8 POCT U LEUK EST (test code = 3263) . Negative - Negative POCT U NIT (test code = 3262) . Negative - Negative POCT U PROT (test code = 3259) trace Negative - Negative POCT U GLU (test code = 3256) neg Negative - Negative POCT U KETONE (test code = 3258) . Negative - Negative POCT U UROBILI (test code = 3260) . 0.2-1 POCT U BILI (test code = 3261) . Negative - Negative POCT U BLD (test code = 3257) . Negative - Negative POCT U COLOR (test code = 3266) . POCT U APPEAR (test code = 3267) [facility] URINALYSIS W SPECIFIC [id number] 19:41:00 Test Item Value Reference Range Interpretation Comments POCT U SP GRAV (test code = 3255) . 1.005-1.025 POCT PH U (test code = 3254) . 5-8 POCT U LEUK EST (test code = 3263) . Negative - Negative POCT U NIT (test code = 3262) . Negative - Negative POCT U PROT (test code = 3259) trace Negative - Negative POCT U GLU (test code = 3256) neg Negative - Negative POCT U KETONE (test code = 3258) . Negative - Negative POCT U UROBILI (test code = 3260) . 0.2-1 POCT U BILI (test code = 3261) . Negative - Negative POCT U BLD (test code = 3257) . Negative - Negative POCT U COLOR (test code = 3266) POCT U APPEAR (test code = 3267) [facility] ONLY PAP SMEAR-LIQUID [id number] 19:55:00 Test Item Value Reference Range Interpretation Comments Case Report (test code Gynecologic Cytology ? = [id number]) ?Case: [id number] ? Authorizing Provider: ?Dansih Monahan, VASHTI ? ?Collected: ? 11/26/2019 1029 ?Ordering Location: ? ? [facility]- ? Received: ?11/26/2019 2243 ? [place] ? First Screen: ?Deshaun Tirado ? Specimen: ? ?Liquid Based Pap Preparation, CERVIX ? Clinical Information Routine Pap Smear (test code = 8410181757) Specimen Adequacy Satisfactory for (test code = 44597-2) Evaluation(Endocervical /Transformation Zone Component Absent) Interpretation (test Negative for code = 75432-7) intraepithelial lesion or malignancy LMP (test code = 7726929313) Educational Note (test q2mbrBIrKXLln9rsQEQxhFN code = 6166305205) uZzEwMzNcZnRuYmpcdWMxIH wbrvLlXJmye8ShK3LdLTSbV FxhbnNpXGRlZmxhbmcxMDMz OBE5suXxYKTtVKxuRPJgAAq kSr1oyJSjaQnmSlJkENToj9 dbthDYgdjnwHd4l0uuRLGbR kW1tBEzEXepJ7jylqZhgXYj GRVtYZp9rU16ENSstD2qzKM xVMqpdhHiVqE2WIlkYCJlOp V9ZPYsxBEkOSGmY5guZXApS TWlT5AiFA9oUvmxYrk9YPV7 IDtccmVkMFxncmVlbjBcYmx 9DIWaB434DWS1hFjpx4czWD C0JTQmQEWwCiTtAz0knFFqJ 706UREyZQEYPDKfhWs3DSVx tnPazqYdyXFQr680Y934l3e cCDQyxxLauLlOpzelv6sbD2 19XHBhcGVydzEyMjQwXHBhc AQimEJ4XTLiJD3dsuzzJMpm JMvwHEWefyY8CHIdbWYlJ3K bWOEeTM8yeykmZCG8AGvfGQ QfUXV1LuKuDSMam3Rsqnu6V iAqwk7lka37QCJ6i9WrwNwn TLY6GQD1ZcOqZo7ijDSeVHD jHP4aTsPicUGwLQRyjk14qS vgHHsimgMqhB2vLpQmHRCtb TQeATGbLB3qsXLfAYKglZ2k cmxjXHBnYnJkcmhlYWRccGd gnxKoJq2ggRapERD1EVaxN0 tkvM9zVmU3ZMyfE3tmpG1eW Wc2VJgmtWA3OJCieO1wEI5l hrgea3ebFNhwQPpwHSGsflC 0qnX7XOUslCJcD5JtzI8iBE PhPK4kkhaux2bjAWY2TGdtY VHpFUH9YoNcFMUye4Xmypt3 JmYha8KqsBUnIHspX96oc27 9TJTzlmUuU5bpfYVfgewtzN CscxgiUTibthC6YFOiYNZpL WluXGYxXGZzMjJcbGFuZzEw MzNcaGljaFxmMVxkYmNoXGY vDDkrY8tgVgJdI2MnUYAkIr YwgEFHOSI9hKXvdGAfiAIvv T8vtPSmMUNaXNMbk5VoKGpr VBPfa5SsSMWhoE4fQOJoc9J ccLMxeIBuqAh0VSCcmxNieL TnbZ97zmWlAX9mVSCfHVVhY ERdtrMuoFRhr3KdNvZMoDAu zDOxvGTlZOFoBZ2jzJ3rLOF vclWqJFQ3jXMnt0jeBVPds1 UrVnbylWO7GG0gBUSkmHZbH G9bU2S9iXXvYNExQUYbWZea DY2tp5SokUx8VWOhGGA5fIF cQtHwJxAypZykpiWlQN8fbI bdDxXvypYrPz9prO14SWFvB T5xULWxOVfpgJPsyhZaNKWx qF5tF1YsIKJcE72hTTIdDTQ xdY1zbY1zxnJnmiVddtXdi3 2zOU2xPPAwlN7hhSbtdS3yk mUgdGhlIGVmZmVjdCBvZiBm LSsmBZPwKUoujKr8AYBfJCA 2hMOwUmEcOG86baJvUWOjHP 22VLSac9OdXJVzZDKaRC4ai gKzZPP2ihLpy69tcFi5FQak hUQwxS0fGFqciEHkpYWhLjH kkOSgVZarAAWhWA3xEHSfMP 55IHVuZXhwbGFpbmVkIGNsa C4iQ2HmXFYqW61hBKQiAFFq uF5ocP9gzuoyeaGmPYYbrTX zcyBvZiBhbnkgUGFwIFRlc3 ZipsKfyPe5RovfeNMuygnkQ VxmczIyXGxhbmcxMDMzXGhp Q9jsZsUvFKErhWauPFktq3A oXGYxXGZzMjJccGFyfX0= Embedded Images (test code = 0889688449) [facility] [id number] 15:24:00 Test Item Value Reference Range Interpretation Comments URINE CULTURE (test 10,000 - 100,000 CFU/mL code = 630-4) mixed aerobic organisms - suggests endogenous microbial contamination [facility] CenterTRICHOMONAS AMPLIFIED [id number] 02:22:00 Test Item Value Reference Range Interpretation Comments Trichomonas Nucleic Positive Negative A Acid (test code = 71655-8) LORETTA (test code = LORETTA) Reliable results are dependent on adequate specimen collection. ? A positive result obtained from a patient after therapeutic treatment cannot be interpreted as indicating the presence of viable organisms. ?For patients on whom a false positive result may have adverse psychosocial impact, retesting is advised. Indeterminate: Unable to generate a valid test result on this specimen. ?Please submit a new specimen for repeat testing if clinically indicated. Trichomonas nucleic acid amplification testing (NAAT) has not been validated for medico-legal specimens (sexual abuse in heather-pubertal and pre-pubertal children, sexual assault, and legal cases). ?Wet mount with microscopic observation and culture for Trichomonas vaginalis from clinically appropriate sites are the methods of choice in these cases. Results from this testing should be interpreted in conjunction with other laboratory and clinical data available to the clinician. Lab Interpretation Abnormal (test code = 39786-1) [facility] CenterGC & CHLAMYDIA AMPLIFIED [id number] 01:42:00 Test Item Value Reference Range Interpretation Comments C. trachomatis Nucleic Negative Negative Acid (test code = 08556-2) N. gonorrhoeae Nucleic Negative Negative Acid (test code = 11918-0) LORETTA (test code = LORETTA) Reliable results are dependent on adequate specimen collection. ? A positive result obtained from a patient after therapeutic treatment cannot be interpreted as indicating the presence of viable organisms. ?For patients on whom a false positive result may have adverse psychosocial impact, retesting is advised. Indeterminate: Unable to generate a valid test result on this specimen. ?Please submit a new specimen for repeat testing if clinically indicated. Chlamydia trachomatis/Neisseria gonorrhoeae nucleic acid amplification testing (NAAT) has not been validated for medico-legal specimens (sexual abuse in heather-pubertal and pre-pubertal children, sexual assault, and legal cases). ?Culture for Chlamydia trachomatis and/or Neisseria gonorrhoeae from clinically appropriate sites is the method of choice in these cases. ? Results from this testing should be interpreted in conjunction with other laboratory and clinical data available to the clinician. Lab Interpretation Normal (test code = 05644-1) [facility] CenterRUBELLA SCREEN ([place]) [id number] 15:05:00 Test Item Value Reference Range Interpretation Comments Rubella screen IgG Equivocal Negative (test code = 7736455996) LORETTA (test code = LORETTA) Positive - Indicates the patient was exposed to Rubella through infection or vaccination.Negative - Indicates the patient could be susceptible to Rubella infection.Equivocal - A second specimen should be sent. [facility]TIBODY [id number] 15:05:00 Test Item Value Reference Range Interpretation Comments VZV IgG antibody Negative Negative (test code = 13409-5) LORETTA (test code = LORETTA) Positive - Indicates the patient was exposed to VZV through infection or vaccination.Negative - Indicates the patient could be susceptible to VZV infection.Equivocal - A second specimen should be sent for testing. [facility] CenterGAL ONLY - SYPHILIS [id number] 14:18:00 Test Item Value Reference Range Interpretation Comments Syphilis IgG/IgM (test Non-reactive Non-reactive code = 60402-1) LORETTA (test code = LORETTA) Non-reactive - No serologic evidence of T. pallidum infection. Cannot exclude incubating or early syphilis. Submit a second specimen in 2-4 weeks if syphilis is clinically suspected. Equivocal - Further testing to follow. Reactive - Further testing to follow. Lab Interpretation (test Normal code = 15887-7) [facility] CenterSARS-COV-2 [id number] 06:55:00 Test Item Value Reference Range Interpretation Comments CoV-2 IgG (test code Negative Negative Negativ e result = 29215-3) does not rule o ut acute SARS-CoV- 2 infection. Clinical correlation as well as molecul ar diagnostic test are recommended to rule out acu te infection if clinically indicated. LORETTA (test code = LORETTA) This test has been approved by FDA for emergency use. Lab Interpretation Normal (test code = 43016-1) [facility] CenterHI 1/2 AG-AB WITH [id number] 05:55:00 Test Item Value Reference Range Interpretation Comments HIV Negative Negative Semi-quantitative (test code = 81347-5) LORETTA (test code = Non-reactive for HIV-1 LORETTA) antigen and HIV-1/HIV-2 antibodies. ?No laboratory evidence of HIV infection. ?Repeat in 2-4 weeks if acute HIV infection is suspected. [facility] CenterPRENATAL WORKUP, BLOOD [id number] 04:31:32 Test Item Value Reference Range Interpretation Comments ABO & RH (test code A POSITIVE Performe d at [facility] = 20) Laboratory Serv [facility] Blood [facility] [facility] s [id number] Free: [phone] A No. [id number] IAT (test code = Negative Performed a t [facility] 1185) Laboratory [facility] Blood [facility] [place] [facility] s [address]Seby Free: [phone] A No. [id number] [facility] CenterHEPATITIS B SURFACE [id number] 04:03:00 Test Item Value Reference Range Interpretation Comments HBsAg Semi-Quantitative (test code = Negative Negative 5195-3) [facility] CenterGLUCOSE 1 HOUR POST [id number] 03:22:00 Test Item Value Reference Range Interpretation Comments GLUC 1 HR (test code = 0271046430) 105 mg/dL 120-170 L Lab Interpretation (test code = Abnormal 25501-2) [facility] WITH [id number] 03:08:00 Test Item Value Reference Range Interpretation Comments WBC (test code = See_Comment [Automated 0970-2) message] The sy stem which generated this result transmitted reference range : 4.30 - 11.10 10*3/?L. The reference range was not used to interpret this result as normal/abnormal . RBC (test code = See_Comment [Automated 993-8) message] The sy stem which generated this result transmitted reference range : 3.93 - 5.25 10*6/?L. The reference range was not used to interpret this result as normal/abnormal . HGB (test code = 12.4 g/dL 11.6-15 718-7) HCT (test code = 36.0 % 35.7-45.2 4544-3) MCV (test code = 89.3 fL 80.6-95.5 787-2) MCH (test code = 30.8 pg 25.9-32.8 785-6) MCHC (test code = 34.4 g/dL 31.6-35.1 786-4) RDW-SD (test code = 38.5 fL 39-49.9 L 43664-9) RDW-CV (test code = 11.9 % 12-15.5 L 788-0) PLT (test code = See_Comment [Automated 777-3) message] The sy stem which generated this result transmitted reference range : 166 - 358 10*3/ ?L. The reference r william was not used to interpret this result as normal/abnormal . MPV (test code = 10.5 fL 9.5-12.9 61164-3) NRBC/100 WBC (test See_Comment [Automat ed code = 4111201849) message] The system which generated this result transmitted reference range : 0.0 - 10.0 /100 WBCs. The refer ence range was not u sed to interpret th is result as normal/abnormal . NRBC x10^3 (test code <0.01 See_Comment [Auto mated = 2822495051) message] The s ystem which generated this result transmitted reference range : 10*3/?L. The reference range was not used to interpret this result as normal/abnormal . GRAN MAT (NEUT) % 58.8 % (test code = 770-8) IMM GRAN % (test code 0.30 % = 7531485953) LYMPH % (test code = 30.1 % 736-9) MONO % (test code = 8.4 % 5905-5) EOS % (test code = 1.9 % 713-8) BASO % (test code = 0.5 % 706-2) GRAN MAT x10^3(ANC) 4.31 10*3/uL 1.88-7.09 (test code = 4842509561) IMM GRAN x10^3 (test <0.03 0-0.06 code = 8088789346) LYMPH x10^3 (test code 2.21 10*3/uL 1.32-3.29 = 731-0) MONO x10^3 (test code 0.62 10*3/uL 0.33-0.92 = 742-7) EOS x10^3 (test code = 0.14 10*3/uL 0.03-0.39 711-2) BASO x10^3 (test code 0.04 10*3/uL 0.01-0.07 = 704-7) Lab Interpretation Abnormal (test code = 48722-4) [facility] [id number] 14:16:00 Test Item Value Reference Range Interpretation Comments POCT PREG (test code = 1605) Positive On board controls acceptable with C Yes Line (test code = 3574) POCT PREG LOT # (test code = 3575) POCT PREG TEST DATE (test code = 357) [facility] URINALYSIS W/O SPECIFIC [id number] 14:16:00 Test Item Value Reference Range Interpretation Comments POCT PH U (test code = 3254) 6 mg/dl 5-8 POCT U LEUK EST (test code = 2+ Negative - Negative 3263) POCT U NIT (test code = 3262) neg Negative - Negative POCT U PROT (test code = 3259) 1+ Negative - Negative POCT U GLU (test code = 3256) neg Negative - Negative POCT U KETONE (test code = 3258) neg Negative - Negative POCT U BLD (test code = 3257) neg Negative - Negative [facility] [id number] 14:16:00 Test Item Value Reference Range Interpretation Comments POCT PREG (test code = 1605) Positive On board controls acceptable with C Yes Line (test code = 3574) POCT PREG LOT # (test code = 3575) POCT PREG TEST DATE (test code = 357) [facility] URINALYSIS W/O SPECIFIC [id number] 14:16:00 Test Item Value Reference Range Interpretation Comments POCT PH U (test code = 3254) 6 mg/dl 5-8 POCT U LEUK EST (test code = 2+ Negative - Negative 3263) POCT U NIT (test code = 3262) neg Negative - Negative POCT U PROT (test code = 3259) 1+ Negative - Negative POCT U GLU (test code = 3256) neg Negative - Negative POCT U KETONE (test code = 3258) neg Negative - Negative POCT U BLD (test code = 3257) neg Negative - Negative [facility] [id number] 14:16:00 Test Item Value Reference Range Interpretation Comments POCT PREG (test code = 1605) Positive On board controls acceptable with C Yes Line (test code = 3574) POCT PREG LOT # (test code = 3575) POCT PREG TEST DATE (test code = 357) [facility] CenterP[facility] W/O SPECIFIC [id number] 14:16:00 Test Item Value Reference Range Interpretation Comments POCT PH U (test code = 3254) 6 mg/dl 5-8 POCT U LEUK EST (test code = 2+ Negative - Negative 3263) POCT U NIT (test code = 3262) neg Negative - Negative POCT U PROT (test code = 3259) 1+ Negative - Negative POCT U GLU (test code = 3256) neg Negative - Negative POCT U KETONE (test code = 3258) neg Negative - Negative POCT U BLD (test code = 3257) neg Negative - Negative [facility] BHCG (QUANTITATIVE)2019-11-12 23:17:00 Test Item Value Reference Range Interpretation Comments BETA HCG (test See_Comment [Automated m essage] code = The system [employer] h 4503128665) generated this result transmit vilma reference range : Non- fe male and male patien ts: <5 mIU/mL. The reference range was not used to interpret this result as normal/abnormal . LORETTA (test code Gestational Age ? ? = LORETTA) ?Range (mIU/mL) 1-10 ?Weeks ?09-55516850-93 Weeks ?32838-09376293-29 Weeks ?9621-41989321-53 Weeks ?3098-882151 Biotin has been reported to cause a negative bias, interpret results relative to patient's use of biotin. [facility]. METABOLIC PANEL (83150)2019-11-12 21:27:00 Test Item Value Reference Range Interpretation Comments NA (test code = 137 mmol/L 135-145 9264356616) K (test code = 4.3 mmol/L 3.5-5 4402864838) CL (test code = 103 mmol/L 98-108 5799458239) CO2 TOTAL (test code = 25 mmol/L 23-31 6112659938) AGAP (test code = 2-16 9539051654) BUN (test code = 11 mg/dL 7-23 1126279694) GLUCOSE (test code = 90 mg/dL 70-110 8146170981) CREATININE (test code = 0.54 mg/dL 0.5-1.04 3504139185) TOTAL BILI (test code = 0.4 mg/dL 0.1-1.0 6126516458) CALCIUM (test code = 9.4 mg/dL 8.6-10.6 7567523446) T PROTEIN (test code = 7.1 g/dL 6.3-8.2 1968927364) ALBUMIN (test code = 4.2 g/dL 3.5-5 6188719017) ALK PHOS (test code = 29 U/L 34-122 L 9649724886) ALTv (test code = 14 U/L 5-35 1742-6) AST(SGOT) (test code = 21 U/L 13-40 7122597157) eGFR Calculation mL/min/1.73m2 (Non-) (test code = 9624905013) eGFR Calculation mL/min/1.73m2 () (test code = 5538718477) LORETTA (test code = LORETTA) Association of Glomerular Filtration Rate (GFR) and Staging of Kidney Disease* + --+ --+ ------+| GFR (mL/min/1.73 m2) ?| With Kidney Damage ?| ?Without Kidney Damage+ --------+ --------+ +| ?>90 ?| ?Stage one ?| ? Normal ?+ ---+ ---+ -------+| ?60-89 ?| ?Stage two ?| ? Decreased GFR ? + --+ --+ ------+| ?30-59 ?| ?Stage three ?| ? Stage three ? + --+ --+ ------+| ?15-29 ?| ?Stage four ? | ? Stage four ?+ ---+ ---+ -------+| ?<15 (or dialysis) ? ?| ?Stage five ? | ? Stage five ?+ ---+ ---+ -------+ *Each stage assumes the associated GFR level has been in effect for at least three months. ?Stages 1 to 5, with or without kidney disease, indicate chronic kidney disease. Notes: Determination of stages one and two (with eGFR >59mL/min/1.73 m2) requires estimation of kidney damage for at least three months as defined by structural or functional abnormalities of the kidney, manifested by either:Pathological abnormalities or Markers of kidney damage (including abnormalities in the composition of the blood or urine or abnormalities in imaging tests). Lab Interpretation Abnormal (test code = 54834-0) [facility] CenterUrinalysis2020-09-21 21:27:00 Test Item Value Reference Range Interpretation Comments APPEARANCE (test code = Clear Clear 5117648864) COLOR (test code = Straw Yellow A 6936275860) PH (test code = 4.8-8.0 7626060255) SP GRAVITY (test code = 1.003-1.030 9063570234) GLU U QUAL (test code = Normal Normal 7108817817) BLOOD (test code = Negative Negative 2922423624) KETONES (test code = Negative Negative 2893876355) PROTEIN (test code = Negative Negative 2887-8) UROBILIN (test code = Normal Normal 4577299815) BILIRUBIN (test code = Negative Negative 8996843418) NITRITE (test code = Negative Negative 7583251616) LEUK ANTWON (test code = Negative Negative 6495608894) RBC/HPF (test code = See_Comment [Autom ated message] 7355761605) The system [employer] generated this result transmitted ref erence range: 0 - 3 HP F. The reference range was not used to int erpret this result as normal/abnormal . WBC/HPF (test code = See_Comment [Autom ated message] 3985316299) The system [employer] generated this result transmitted ref erence range: 0 - 5 HP F. The reference range was not used to int erpret this result as normal/abnormal . BACTERIA (test code = Negative Negative 7200933556) SQ EPITH (test code = HPF 8605593517) Lab Interpretation (test Abnormal code = 40052-2) [facility] CenterLIPASE2020-09-21 21:26:00 Test Item Value Reference Range Interpretation Comments LIPASE (test code = 7922869982) 51 U/L 0-220 Lab Interpretation (test code = Normal 02081-3) [facility] WITH [id number] 21:22:00 Test Item Value Reference Range Interpretation Comments WBC (test code = See_Comment [Automated message] 6690-2) The system [employer] generated this result transmitted ref erence range: 4.30 - 1 1.10 10*3/?L. The re ference range was not u sed to interpret this result as normal/abnor mal. RBC (test code = See_Comment [Automated message] 789-8) The system [employer] generated this result transmitted ref erence range: 3.93 - 5 .25 10*6/?L. The re ference range was not u sed to interpret this result as normal/abnor mal. HGB (test code = 12.5 g/dL 11.6-15 718-7) HCT (test code = 36.6 % 35.7-45.2 4544-3) MCV (test code = 90.8 fL 80.6-95.5 787-2) MCH (test code = 31.0 pg 25.9-32.8 785-6) MCHC (test code = 34.2 g/dL 31.6-35.1 786-4) RDW-SD (test code 39.9 fL 39-49.9 = 57425-3) RDW-CV (test code 12.0 % 12-15.5 = 788-0) PLT (test code = See_Comment [Automated message] 777-3) The system [employer] generated this result transmitted ref erence range: 166 - 35 8 10*3/?L. The re ference range was not u sed to interpret this result as normal/abnor mal. MPV (test code = 10.2 fL 9.5-12.9 88134-1) NRBC/100 WBC (test See_Comment [Automat ed message] code = 8117763180) The syste [employer] which generated this result transmitted ref erence range: 0.0 - 10 .0 /100 WBCs. The refer ence range was not u sed to interpret this result as normal/abnor mal. NRBC x10^3 (test <0.01 See_Comment [Automated message] code = 5053079141) The syste m which generated this result transmitted ref erence range: 10*3/?L. The reference range was not used to interpr et this result as normal/abnormal . GRAN MAT (NEUT) % 58.1 % (test code = 770-8) IMM GRAN % (test 0.30 % code = [id number]) LYMPH % (test code 30.8 % = 736-9) MONO % (test code 9.2 % = 5905-5) EOS % (test code = 1.1 % 713-8) BASO % (test code 0.5 % = 706-2) GRAN MAT 3.77 10*3/uL 1.88-7.09 x10^3(ANC) (test code = 1276100183) IMM GRAN x10^3 <0.03 0-0.06 (test code = 7651389991) LYMPH x10^3 (test 2.00 10*3/uL 1.32-3.29 code = 731-0) MONO x10^3 (test 0.60 10*3/uL 0.33-0.92 code = 742-7) EOS x10^3 (test 0.07 10*3/uL 0.03-0.39 code = 711-2) BASO x10^3 (test 0.03 10*3/uL 0.01-0.07 code = 704-7) [id number] 20:51[facility]00 Test Item Value Reference Range Interpretation Comments POCT PREG (test code = 1605) positive POCT PREG LOT # (test code = 3575) [id number] POCT PREG TEST DATE (test 10/21/2020 code = 3576) Lab Interpretation (test code = Normal 23642-8) [facility] w/ [id number] 10:21:19Patient: SAMPSON HOLLINGSWORTH Date/Time07/27/201710:00 CDTReason for ExamAbdominal painReportCT OF THE ABDOMEN AND PELVIS WITH CONTRASTLocation R 16HISTORY: Abdominal painTECHNIQUE:5 millimeters contrast enhanced axial images of the abdomen and pelvis provided in venous delays. No PO contrast was administered. The images were reviewed in soft tissue, lung and bone windows. Sagittal and coronal images were reformatted. One or more the followingdose reduction techniques is utilized: Use of iterative reconstruction, automated exposure control, a djustment of the mAs and Kv for the [...] nodes: No evidence of lymphadenopathy in the abdomenand pelvis.IMPRESSION:Exam Date/Time07/27/2017 10:00 CDTReportNo acute intra-abdominal findings. Normal right lower quadrant appendix. No free air or free fluid. Final Dictated by: MD Amira, Radha FDictated DT/TM: 07/27/2017 10:16 amSigned by: MD Collier Eniola FSigned (Electronic Signature): 07/27/2017 10:21 am 20902&PELVIS W/[id number] 06:43:42CT OF THE ABDOMEN AND PELVIS WITH CONTRASTHISTORY: [...] Bone windows are normal.IMPRESSION:Unremarkable exam. No acute findings.Urinalysis Complete 2016-10-13 05:48:00 Test Item Value Reference Range Interpretation Comments Color (test code = [place] Yellow,Straw,Pl A COLOR) yellow Clarity (test code = Clear Clear N CLAR) Specific [place] (test 1.032 1.001-1.035 N code = SPGR) pH (test code = PH) 5.0 5.0-9.0 N Ketone (test code = 5 mg/dL Negative A KET) Glucose (test code = Negative mg/dL Negative N GLUCUR) Protein (test code = 75 mg/dL Negative A PROT) Bilirubin (test code = See IctoTest mg/dL Negative A BILI) Occult Blood (test code Large Negative A = UDOB) Urobilinogen (test code 1.0 mg/dL 0.2-1.0 N = UROB) Nitrite (test code = Negative Negative N NIT) Leuk Esterase (test Small Negative A code = LEUK) Ictotest (test code = Confirmed Negative Negative,Confirmed N ICTOTEST) Negative Micros Exam (test code Indicated = MEXAM) Epithelial Cells (test 15-19 /LPF 0-30 A code = EPI) WBC, Urine (test code = 2-5 /HPF 0-5 A UWBC) RBC, Urine (test code = None Seen /HPF 0-5 A URBC) Bacteria (test code = Few /HPF BACT) CBC with [id number] 05:42:00 Test Item Value Reference Range Interpretation Comments WBC (test code = WBC) 7.1 K/cumm 4.4-10.5 N RBC (test code = RBC) 4.36 M/cumm 3.75-5.20 N Hemoglobin (test code = HGB) 12.8 gm/dL 12.2-14.8 N Hematocrit (test code = HCT) 38.2 % 36.5-44.4 N MCV (test code = MCV) 87.7 fL 80-100 N MCH (test code = MCH) 29.4 pg 27.0-32.5 N MCHC (test code = MCHC) 33.5 g/dL 32.0-37.5 N RDW (test code = RDW) 14.6 % 11.5-14.5 H Platelet Count (test code = 269 K/cumm 140-440 N PLTCT) MPV (test code = MPV) 8.4 fL Diff Method (test code = DIFFM) Auto Neutrophil (test code = NEUT) 51.1 % 36-70 N Lymphocyte (test code = LYMPH) 36.0 % 12-44 N Monocyte (test code = MONO) 9.0 % 0-11 N Eosinophil (test code = EOS) 3.3 % 0-7 N Basophil (test code = BASO) 0.5 % 0-2 N Neutro Abs (test code = ANEUT) 3.6 K/cumm 1.6-7.4 N Lymph Abs (test code = ALYMPH) 2.6 K/cumm 0.5-4.6 N [place] Abs (test code = AMONO) 0.6 K/cumm 0.0-1.2 N Eos Abs (test code = AEOS) 0.24 K/cumm 0.00-0.74 N Baso Abs (test code = ABASO) 0.0 K/cumm 0.00-0.21 N BHCG, Serum, [id number] 05:28:00 Test Item Value Reference Range Interpretation Comments Preg Qual [Se] (test code = BSHCG) Negative Negative N Comprehensive Metabolic [id number] 05:28:00 Test Item Value Reference Range Interpretation Comments Sodium (test code = 141 mmol/L 135-145 N NA) Potassium (test 3.8 mmol/L 3.5-5.1 N code = K) Chloride (test code 104 mmol/L 98-105 N = CL) Carbon Dioxide 22 mmol/L 22-29 N (test code = CO2) Glucose (test code 86 mg/dL 70-115 N = GLU) Blood Urea Nitrogen 17 mg/dL 6-20 N (test code = BUN) Creatinine (test 0.9 mg/dL 0.5-0.9 N code = CREAT) Calcium (test code 9.2 mg/dL 8.3-10.5 N = CA) Prot Total (test 7.6 g/dL 6.4-8.3 N code = TP) Albumin (test code 4.4 g/dL 3.5-5.2 N = ALB) A/G Ratio (test 1.4 Ratio code = AGRATIO) Globulin (test code 3.2 2.9-3.1 H = GLOB) Bili Total (test 0.5 mg/dL 0.1-0.9 N code = TBIL) Alk Phos (test code 48 U/L 35-104 N = APHOS) AST (test code = 17 U/L 1-32 N AST) ALT (test code = 15 U/L 1-33 N ALT) BUN/Creatinine 18.9 Ratio (test code = BCRATIO) Anion Gap (test 15 mmol/L 7-16 N code = AGAP) Estimated GFR (test >60 eGFR (es timated code = GFR) mL/min/1.73m2 Glomerular Mario tration Rate) is an est imated value,calculate d from the patient's s elma creatinine usin g the MDRD equation.I t is NOT the patient 's actual GFR. The eGFR provides a more clinicallyusefu l measure of kidn ey disease than se rum creatinine alone.This calculation [place] es sex and race into account, if the informationis provided. If th e race is not provided , and the patient isAfrican-Ameri can, multiply by 1.2 12. If sex is not prov ided, and thepatient is female, multipl y by 0.742. Results for patients <18 ye ars ofage have not been validated by th e MDRD study and preetiul d be interpretedwith caution.eGFR Re sult Interpretation: eGFR > or = 60 is in t he Normal RangeeGF R < 60 may mean kidney diseaseeGFR < 1 5 may mean kidney failureRange s recommended by the National Kidney Foundation,http ://nkd ep.nih.gov [id number] 05:24:00 Test Item Value Reference Range Interpretation Comments Lipase (test code = LIP) 25 U/L 13-60 N 64602& PELVIS W/O [id number] 20:05:31LOCATION: S 17HISTORY: 16-year-old female who presents with abdominal pain.COMMENT: Axial CT crispin ging of this patient's abdomen and pelvis was obtained fromthe diaphragm to the pelvic floor withoutIV contrast. Coronal andsagittal soft tissue reconstructions were included. One or more of the following dose reduction techniques were used:Automated exposure control, adjustment of the mA and/or kV according thepatient size, and/or utilization of iterative reconstruction technique.DLP: 851.9 mGy-cmCONTRAST: NoneFINDINGS:The visualized lung bases are clear. The cardiac silhouette isunremarkable.The liver, spleen, pancreas, adrenal glands, kidneys, and gallbladderare unremarkable in this unenhanced CT study.The upper intestinal tract down the small intestine are unremarkable. Anormal-appearing ap pendix is seen. The colon is unremarkable.There is no ascites or adenopathy present in the abdomen or in thepelvis.In the pelvis the left ovary is enlarged and cystic measuring 5 cm indiameter. The uterus and right ovary are unremarkable and the urinarybladder is unremarkable.The vascular anatomy is un remarkable.The musculoskeletal anatomy is unremarkable.IMPRESSION:This patient's left ovary is enlarged and cystic. Pelvic ultrasoundcorrelation is suggested.Otherwise the appearance of this patient's abdomen and pelvis in thisunenhanced CT study is unremarkable.Urinalysis [id number] 19:34:00 Test Item Value Reference Range Interpretation Comments Color (test code = COLOR) Yellow Yellow,Straw,Pl N yellow Clarity (test code = Clear Clear N CLAR) Specific [place] (test 1.023 1.001-1.035 N code = SPGR) pH (test code = PH) 8.0 5.0-9.0 N Ketone (test code = KET) 15 mg/dL Negative A Glucose (test code = Negative mg/dL Negative N GLUCUR) Protein (test code = Negative mg/dL Negative N PROT) Bilirubin (test code = Negative mg/dL Negative N BILI) Occult Blood (test code = Negative Negative N UDOB) Urobilinogen (test code = 1.0 mg/dL 0.2-1.0 N UROB) Nitrite (test code = NIT) Negative Negative N Leuk Esterase (test code Small Negative A = LEUK) Micros Exam (test code = Indicated MEXAM) Epithelial Cells (test 10-14 /LPF 0-30 A code = EPI) WBC, Urine (test code = 0-1 /HPF 0-5 A UWBC) RBC, Urine (test code = None Seen /HPF 0-5 A URBC) Bacteria (test code = Few /HPF BACT) Comprehensive Metabolic [id number] 19:16:00 Test Item Value Reference Range Interpretation Comments Sodium (test code = 138 mmol/L 135-145 N NA) Potassium (test 4.4 mmol/L 3.5-5.1 N HEMOLYZED code = K) Chloride (test code 105 mmol/L 98-105 N = CL) Carbon Dioxide 18 mmol/L 22-29 L (test code = CO2) Glucose (test code 78 mg/dL 70-115 N = GLU) Blood Urea Nitrogen 11 mg/dL 6-20 N (test code = BUN) Creatinine (test 0.7 mg/dL 0.5-0.9 N code = CREAT) Calcium (test code 8.8 mg/dL 8.3-10.5 N = CA) Prot Total (test 6.9 g/dL 6.4-8.3 N code = TP) Albumin (test code 4.2 g/dL 3.5-5.2 N = ALB) A/G Ratio (test 1.6 Ratio code = AGRATIO) Globulin (test code 2.7 2.9-3.1 L = GLOB) Bili Total (test 0.5 mg/dL 0.1-0.9 N code = TBIL) Alk Phos (test code 41 U/L 35-104 N = APHOS) AST (test code = 33 U/L 1-32 H HEMOLYZED AST) ALT (test code = 20 U/L 1-33 N ALT) BUN/Creatinine 15.7 Ratio (test code = BCRATIO) Anion Gap (test 15 mmol/L 7-16 N code = AGAP) Estimated GFR (test >60 eGFR (es timated code = GFR) mL/min/1.73m2 Glomerular Mario tration Rate) is an est imated value,calculate d from the patient's s elma creatinine usin g the MDRD equation.I t is NOT the patient 's actual GFR. The eGFR provides a more clinicallyusefu l measure of kidn ey disease than se rum creatinine alone.This calculation [place] sex and race into account, if the informationis provided. If th e race is not provided , and the patient isAfrican-Ameri can, multiply by 1.2 12. If sex is not prov ided, and thepatient is female, multipl y by 0.742. Results for patients <18 ye ars ofage have not been validated by th e MDRD study and shoul d be interpretedwith caution.eGFR Re sult Interpretation: eGFR > or = 60 is in t he Normal RangeeGF R < 60 may mean kidney diseaseeGFR < 1 5 may mean kidney failureRange s recommended by the National Kidney Foundation,http ://nkd ep.nih.gov [id number] 19:16:00 Test Item Value Reference Range Interpretation Comments Lipase (test code = LIP) 24 U/L 13-60 N BHCG, Serum, [id number] 19:10:00 Test Item Value Reference Range Interpretation Comments Preg Qual [Se] (test code = BSHCG) Negative Negative N CBC with [id number] 18:53:00 Test Item Value Reference Range Interpretation Comments WBC (test code = WBC) 8.1 K/cumm 4.4-10.5 N RBC (test code = RBC) 4.00 M/cumm 3.75-5.20 N Hemoglobin (test code = HGB) 12.3 gm/dL 12.2-14.8 N Hematocrit (test code = HCT) 34.4 % 36.5-44.4 L MCV (test code = MCV) 86.1 fL 80-100 N MCH (test code = MCH) 30.7 pg 27.0-32.5 N MCHC (test code = MCHC) 35.6 g/dL 32.0-37.5 N RDW (test code = RDW) 12.8 % 11.5-14.5 N Platelet Count (test code = 184 K/cumm 140-440 N PLTCT) MPV (test code = MPV) 7.8 fL Diff Method (test code = DIFFM) Auto Neutrophil (test code = NEUT) 70.5 % 36-70 H Lymphocyte (test code = LYMPH) 22.6 % 12-44 N Monocyte (test code = MONO) 4.2 % 0-11 N Eosinophil (test code = EOS) 2.4 % 0-7 N Basophil (test code = BASO) 0.3 % 0-2 N Neutro Abs (test code = ANEUT) 5.7 K/cumm 1.6-7.4 N Lymph Abs (test code = ALYMPH) 1.8 K/cumm 0.5-4.6 N [place] Abs (test code = AMONO) 0.3 K/cumm 0.0-1.2 N Eos Abs (test code = AEOS) 0.19 K/cumm 0.00-0.74 N Baso Abs (test code = ABASO) 0.0 K/cumm 0.00-0.21 N Urinalysis [id number] 18:49:00 Test Item Value Reference Range Interpretation Comments Color (test code = [place] Yellow,Straw,Pl A COLOR) yellow Clarity (test code = Sl [place] Clear A CLAR) Specific [place] (test 1.012 1.001-1.035 N code = SPGR) pH (test code = PH) 5.0 5.0-9.0 N Ketone (test code = Negative mg/dL Negative N KET) Glucose (test code = Negative mg/dL Negative N GLUCUR) Protein (test code = 75 mg/dL Negative A PROT) Bilirubin (test code = See IctoTest mg/dL Negative A BILI) Occult Blood (test code Large Negative A = UDOB) Urobilinogen (test code 1.0 mg/dL 0.2-1.0 N = UROB) Nitrite (test code = Positive Negative A NIT) Leuk Esterase (test Large Negative A code = LEUK) Ictotest (test code = Confirmed Negative Negative,Confirmed N ICTOTEST) Negative Micros Exam (test code Indicated = MEXAM) Epithelial Cells (test 3-5 /LPF 0-30 A code = EPI) WBC, Urine (test code = 31-40 /HPF 0-5 A UWBC) RBC, Urine (test code = 3-5 /HPF 0-5 A URBC) Bacteria (test code = Few /HPF BACT) BHCG, Urine, [id number] 18:48:00 Test Item Value Reference Range Interpretation Comments Preg Qual [Ur] (test code = HUHCG) Negative Negative N"
[2021-01-22 23:31] LABS: Urine Blood Negative (Negative); Urine Glucose Negative (Negative); Urine Protein Negative (Negative); Urine Specific Gravity 1.025 (1.005-1.030); Urine pH 5.5 (5.0-7.0)
[2021-01-22 23:44] LABS: Urine Specific Gravity/Preg 1.025 (1.005-1.030)
[2021-01-22] MEDS ORDERED: MORPHINE 4 MG/ML SYR ONE (23:50)
[2021-01-22] MEDS ORDERED: NA CHLORIDE 0.9% 1,000 ML ONE (23:50)
[2021-01-22] MEDS ORDERED: ONDANSETRON 4 MG/2 ML VIAL ONE (23:50)
[2021-01-23 00:05] LABS: Absolute Lymphocytes (CBC) 2.9 K/uL (0.7-4.9); Basophils % 0.6 % (0-1.3); Hematocrit 37.8 % (36.0-45.0); Lymphocytes % 43.5 % (15.3-44.8); MPV 7.7 fL (7.6-11.3); RBC Red Blood Cell Count 4.17 M/uL (3.86-4.86)
[2021-01-23 00:26] LABS: Albumin 4.1 g/dL (3.4-5.0); Bilirubin Direct 0.1 mg/dL (0-0.2); Bilirubin Total 0.4 mg/dL (0.2-1.0); Potassium 3.9 mmol/L (3.5-5.1); Protein, Total 7.5 g/dL (6.4-8.2)
--- NOTE | 2021-01-23 00:53 | ER ---
Nurse's Notes [facility] Name: Estrada Aguirre Age: 20 yrs Sex: Female : 2000 Arrival Date: 01/22/2021 Time: 21:28 Bed 19 Private MD: Diagnosis: Abdominal tenderness-at pfannenstiel incision site, left Presentation: 01/22 21:37 Chief complaint: Patient states: I have had intermittent pain since my baby was born 7 ld1 months ago, pain in my pelvic area and left hip. Pt reports cramping feeling and severe pain. Coronavirus screen: At this time, the client does not indicate any symptoms associated with coronavirus-19. Ebola Screen: No symptoms or risks identified at this time. Initial Sepsis Screen: Does the patient meet any 2 criteria? No. Patient's initial sepsis screen is negative. Does the patient have a suspected source of infection? No. Patient's initial sepsis screen is negative. Risk Assessment: Do you want to hurt yourself or someone else? Patient reports no desire to harm self or others. Onset of symptoms was January 22, 2021. 21:37 Method Of Arrival: Ambulatory ld1 21:37 Acuity: RICH 3 ld1 Triage Assessment: 21:42 General: Appears in no apparent distress. uncomfortable, Behavior is cooperative, ld1 appropriate for age, anxious. Pain: Complains of pain in pelvis Pain does not radiate. Pain currently is 8 out of 10 on a pain scale. Quality of pain is described as crampy, stabbing, throbbing, Pain began gradually, Is intermittent. EENT: No signs and/or symptoms were reported regarding the EENT system. Neuro: Level of Consciousness is awake, alert, obeys commands, Oriented to person, place, time, situation, Appropriate for age. Cardiovascular: Capillary refill < 3 seconds Patient's skin is warm and dry. Respiratory: Airway is patent Respiratory effort is even, unlabored, Respiratory pattern is regular, symmetrical. GI: Abdomen is flat, non-distended. : No signs and/or symptoms were reported regarding the genitourinary system. Derm: No signs and/or symptoms reported regarding the dermatologic system. Musculoskeletal: No signs and/or symptoms reported regarding the musculoskeletal system. 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 - Social history:: Smoking status: Patient reports the use of cigarette tobacco products, smokes one-half pack cigarettes per day, Patient/guardian denies using alcohol, street drugs. Screenin/03 00:55 Abuse screen: Denies threats or abuse. Nutritional screening: No deficits noted. as6 Tuberculosis screening: No symptoms or risk factors identified. Fall Risk None identified. Assessment: 01/22 22:55 General: Appears in no apparent distress. uncomfortable, Behavior is calm, cooperative. as6 Pain: Complains of pain in right lower quadrant and left lower quadrant. Neuro: Level of Consciousness is awake, alert, obeys commands, Oriented to person, place, time, situation. Cardiovascular: Capillary refill < 3 seconds Patient's skin is warm and dry. Respiratory: Airway is patent Trachea midline Respiratory effort is even, unlabored, Respiratory pattern is regular, symmetrical. GI: Reports lower abdominal pain, nausea. : Reports vaginal bleeding that is spotty. Derm: Skin is intact, is healthy with good turgor. Vital Signs: 21:37 BP 134 / 96; Pulse 70; Resp 18; Temp 98.6(O); Pulse Ox 100% on R/A; Weight 81.65 kg; ld1 Height 5 ft. 1 in. (154.94 cm); Pain 8/10; 22:57 BP 117 / 66; Pulse 68; Resp 18 S; Pulse Ox 100% on R/A; as6 12/ 00:48 BP 125 / 76; Pulse 74; Resp 18 S; Pulse Ox 100% on R/A; as6 00:52 Temp 98.2(O); lt3 12/ 21:37 Body Mass Index 34.01 (81.65 kg, 154.94 cm) ld1 ED Course: 01/22 21:28 Patient arrived in ED. ja2 21:42 Triage completed. ld1 21:42 Arm band placed on left wrist. ld1 22:38 Lucio Sutton, SUMMER is Primary Nurse. as6 23:00 Sid Hall MD is Attending Physician. [facility] 23:00 Inserted saline lock: 22 gauge in right forearm, using aseptic technique. Blood as6 collected. 12 00:15 CT Abd/Pelvis - IV Contrast Only In Process Unspecified. EDMA 00:52 Lorenzo Christianson MD is Referral Physician. [facility] 00:55 Bed in low position. Call light in reach. Side rails up X2. Adult w/ patient. Pulse ox as6 on. NIBP on. 01:21 No provider procedures requiring assistance completed. IV discontinued, intact, as6 bleeding controlled, No redness/swelling at site. Pressure dressing applied. Administered Medications: 01/22 23:58 Drug: NS 0.9% 1000 ml Route: IV; Rate: 1 bolus; Site: right forearm; as6 01/23 01:00 Follow up: Response: No adverse reaction; IV Status: Completed infusion; IV Intake: as6 1000ml 01/22 23:58 Not Given (Patient Refused): morphine 4 mg IVP once; RASS on ADMIN: Combtv4, Very as6 Agttd3, Agttd2, Rstlss1, AlertClm0, Drwsy-1, Lt Sdtn-2, Mod Sdtn-3, Dp Sdtn-4, UnArsble-5 23:58 Drug: Zofran (Ondansetron) 4 mg Route: IVP; Site: right forearm; as6 01/23 00:30 Follow up: Response: No adverse reaction as6 Intake: 01:00 IV: 1000ml; Total: 1000ml. as6 Outcome: 00:53 Discharge ordered by . [facility] 01:21 Discharged to home ambulatory, with family. as6 01:21 Condition: stable 01:21 Discharge instructions given to patient, Instructed on discharge instructions, follow up and referral plans. medication usage, Demonstrated understanding of instructions, follow-up care, medications, Prescriptions given X 2. 01:23 Patient left the ED. as6 Signatures: Dispatcher [employer] EDMA Sid Hall MD MD cha Dibbern, Lauren, RN RN ld1 Caitlyn Patiño Lucio Sutton RN RN as6 Miguelina Griffiths lt3 Corrections: (The following items were deleted from the chart) 01/22 21:42 21:37 Acuity: RICH 3 ld1 ld1
--- NOTE | 2021-01-23 00:53 | EDPHYS ---
Physician Documentation [facility] Name: Estrada Aguirre Age: 20 yrs Sex: Female : 2000 Arrival Date: 01/22/2021 Time: 21:28 Bed 19 Private MD: ED Physician Sid Hall HPI: 01/22 23:38 This 20 yrs old Female presents to ER via Ambulatory with complaints of iris Pelvic Pain. 23:38 The patient presents with abdominal pain in the left lower quadrant. Onset: The iris symptoms/episode began/occurred 7 month(s) ago. The patient presents with pelvic pain, that is located in/on the left lower quadrant. Onset: The symptoms/episode began/occurred 90 day(s) ago. Modifying factors: The symptoms are alleviated by remaining still, the symptoms are aggravated by movement, pressure. Associated signs and symptoms: The patient has no apparent associated signs or symptoms. Severity of symptoms: At their worst the symptoms were moderate, in the emergency department the symptoms are unchanged. The symptoms. The patient is sexually active, reportedly has a single partner. 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 - Social history:: Smoking status: Patient reports the use of cigarette tobacco products, smokes one-half pack cigarettes per day, Patient/guardian denies using alcohol, street drugs. ROS: 23:45 Constitutional: Negative for fever, chills, and weight loss, Eyes: Negative for injury, iris pain, redness, and discharge, ENT: Negative for injury, pain, and discharge, Neck: Negative for injury, pain, and swelling, Cardiovascular: Negative for chest pain, palpitations, and edema, Respiratory: Negative for shortness of breath, cough, wheezing, and pleuritic chest pain, Back: Negative for injury and pain, : Negative for injury, bleeding, discharge, and swelling, MS/Extremity: Negative for injury and deformity, Skin: Negative for injury, rash, and discoloration, Neuro: Negative for headache, weakness, numbness, tingling, and seizure, Psych: Negative for depression, anxiety, suicide ideation, homicidal ideation, and hallucinations, Allergy/Immunology: Negative for hives, rash, and allergies, Endocrine: Negative for neck swelling, polydipsia, polyuria, polyphagia, and marked weight changes, Hematologic/Lymphatic: Negative for swollen nodes, abnormal bleeding, and unusual bruising. 23:45 Abdomen/GI: Positive for abdominal pain, abdominal cramps, of the left lower quadrant. Exam: 23:45 Constitutional: This is a well developed, well nourished patient who is awake, alert, iris and in no acute distress. Head/Face: Normocephalic, atraumatic. Eyes: Pupils equal round and reactive to light, extra-ocular motions intact. Lids and lashes normal. Conjunctiva and sclera are non-icteric and not injected. Cornea within normal limits. Periorbital areas with no swelling, redness, or edema. ENT: Nares patent. No nasal discharge, no septal abnormalities noted. Tympanic membranes are normal and external auditory canals are clear. Oropharynx with no redness, swelling, or masses, exudates, or evidence of obstruction, uvula midline. Mucous membranes moist. Neck: Trachea midline, no thyromegaly or masses palpated, and no cervical lymphadenopathy. Supple, full range of motion without nuchal rigidity, or vertebral point tenderness. No Meningismus. Chest/axilla: Normal chest wall appearance and motion. Nontender with no deformity. No lesions are appreciated. Cardiovascular: Regular rate and rhythm with a normal S1 and S2. No gallops, murmurs, or rubs. Normal PMI, no JVD. No pulse deficits. Respiratory: Lungs have equal breath sounds bilaterally, clear to auscultation and percussion. No rales, rhonchi or wheezes noted. No increased work of breathing, no retractions or nasal flaring. Back: No spinal tenderness. No costovertebral tenderness. Full range of motion. Skin: Warm, dry with normal turgor. Normal color with no rashes, no lesions, and no evidence of cellulitis. MS/ Extremity: Pulses equal, no cyanosis. Neurovascular intact. Full, normal range of motion. Neuro: Awake and alert, GCS 15, oriented to person, place, time, and situation. Cranial nerves II-XII grossly intact. Motor strength 5/5 in all extremities. Sensory grossly intact. Cerebellar exam normal. Normal gait. Psych: Awake, alert, with orientation to person, place and time. Behavior, mood, and affect are within normal limits. 23:45 Abdomen/GI: Inspection: abdomen appears normal, Bowel sounds: normal, Palpation: moderate abdominal tenderness, in the left lower quadrant, Liver: no appreciated palpable abnormalities, Hernia: not appreciated. Vital Signs: 21:37 BP 134 / 96; Pulse 70; Resp 18; Temp 98.6(O); Pulse Ox 100% on R/A; Weight 81.65 kg; ld1 Height 5 ft. 1 in. (154.94 cm); Pain 8/10; 22:57 BP 117 / 66; Pulse 68; Resp 18 S; Pulse Ox 100% on R/A; as6 01/23 00:48 BP 125 / 76; Pulse 74; Resp 18 S; Pulse Ox 100% on R/A; as6 00:52 Temp 98.2(O); lt3 01/22 21:37 Body Mass Index 34.01 (81.65 kg, 154.94 cm) ld1 MDM: 01/22 23:00 Patient medically screened. [facility] 23:47 Differential diagnosis: ovarian cyst, uterine fibroids, urinary tract infection, iris Endometriosis, Menorrhagia, non-specific abd pain. Data reviewed: vital signs, nurses notes, lab test result(s), radiologic studies, CT scan. Data interpreted: surveillance system monitor: rate is 68 beats/min, rhythm is regular, Pulse oximetry: on room air is 100 %. Test interpretation: by ED physician or midlevel provider: ECG, plain radiologic studies. Counseling: I had a detailed discussion with the patient and/or guardian regarding: the historical points, exam findings, and any diagnostic results supporting the discharge/admit diagnosis, lab results, radiology results, the need for outpatient follow up, for definitive care, an OB/Gyne specialist. 01/22 23:10 Order name: Urine Culture [facility] 01/22 23:27 Order name: Basic Metabolic Panel [facility] 01/22 23:27 Order name: CBC with Diff [facility] 01/22 23: Order name: Hepatic Function; Complete Time: 00:40 [facility] 01/22 23:27 Order name: Lipase; Complete Time: 00:40 [facility] 01/22 23:27 Order name: Basic Metabolic Panel; Complete Time: 00:40 EDMS 01/22 23:10 Order name: Urine Dipstick-Ancillary (obtain specimen); Complete Time: 23:32 [facility] 01/22 23:10 Order name: Urine Test (obtain specimen); Complete Time: 23:31 [facility] 01/22 23:27 Order name: CT Abd/Pelvis - IV Contrast Only [facility] 01/22 23:30 Order name: Urine Dipstick-Ancillary; Complete Time: 00:40 EDMS 01/22 23:41 Order name: Urine --Ancillary (enter results); Complete Time: 00:40 lp1 01/22 23:27 Order name: IV Saline Lock; Complete Time: 23:58 [facility] 01/22 23:27 Order name: Labs collected and sent; Complete Time: 23:58 iris Administered Medications: 23:58 Drug: NS 0.9% 1000 ml Route: IV; Rate: 1 bolus; Site: right forearm; as6 01/23 01:00 Follow up: Response: No adverse reaction; IV Status: Completed infusion; IV Intake: as6 1000ml 01/22 23:58 Not Given (Patient Refused): morphine 4 mg IVP once; RASS on ADMIN: Combtv4, Very as6 Agttd3, Agttd2, Rstlss1, AlertClm0, Drwsy-1, Lt Sdtn-2, Mod Sdtn-3, Dp Sdtn-4, UnArsble-5 23:58 Drug: Zofran (Ondansetron) 4 mg Route: IVP; Site: right forearm; as6 01/23 00:30 Follow up: Response: No adverse reaction as6 Disposition Summary: 01/23/21 00:53 Discharge Ordered Location: Home iris Problem: new iris Symptoms: have improved iris Condition: Stable iris Diagnosis - Abdominal tenderness - at pfannenstiel incision site, left iris Followup: iris - With: Private Physician - When: 2 - 3 days - Reason: Recheck today's complaints, Continuance of care, Re-evaluation by your physician Followup: iris - With: - When: 2 - 3 days - Reason: Recheck today's complaints, Re-evaluation by your physician Discharge Instructions: - Discharge Summary Sheet iris - Abdominal Pain, Adult iris - Pelvic Pain, Female iris - Pelvic Pain, Female, [id number] iris - Abdominal Pain, Adult, [id number] iris Forms: - Medication Reconciliation Form iris - Thank You Letter iris - Antibiotic Education iris - Prescription Opioid Use irsi - Work release form as6 Prescriptions: - Ibuprofen 600 mg Oral Tablet - take 1 tablet by ORAL route every 6 hours As needed take with food; 20 tablet; iris Refills: 0, Product Selection Permitted - Tylenol-Codeine #3 300 mg-30 mg Oral - take 2 tablet by ORAL route every 4-6 hours; 15 tablet; Refills: 0, Product iris Selection Permitted Signatures: Dispatcher [employer] Sid Olsen MD MD cha Dibbern, Lauren, RN RN ld1 Lucio Sutton RN RN as6
[2021-01-23 01:34] VITALS: O2SAT 100
[2021-01-23 01:37] VITALS: BP 125/76
[2021-01-23 01:38] VITALS: TEMP 98.2
--- NOTE | 2021-01-23 19:21 | RAD REPORT ---
EXAM DESCRIPTION: CT - Abdomen Pelvis W Contrast - 01/23/2021 6:38 am CLINICAL HISTORY: ABD PAIN. COMPARISON: None. TECHNIQUE: CT of the abdomen and pelvis was performed following intravenous administration of iodina vilma contrast. Arterial phase images through the abdomen, and portal venous phase images through the a bdomen and pelvis were obtained. Oral contrast was not administered. Axial, coronal, and sagittal sof t tissue window reconstructions were created and sent to PACS. This exam was performed according to our departmental dose-optimization program, which includes autom ated exposure control, adjustment of the mA and/or kV according to patient size and/or use of iterati ve reconstruction technique. FINDINGS: Thoracic: No significant abnormality. Hepatobiliary: No concerning hepatic lesion identified. The portal veins are patent. The gallbladder is unremarkable. No biliary ductal dilatation. Pancreas: Unremarkable. Spleen: Unremarkable. Gastrointestinal: No evidence of bowel obstruction or perienteric inflammation. The appendix is silvia l. Adrenals: No abnormality identified in either adrenal gland. Renal: Tiny right renal hypodensity, too small to accurately characterize but statistically likely a cyst. No concerning parenchymal abnormality in either kidney. No hydronephrosis or urolithiasis. Bladder/Reproductive: Unremarkable appearance of the urinary bladder by CT technique. Unremarkable CT appearance of the uterus and ovaries. Vascular/Lymphatics: No lymphadenopathy identified by CT size criteria. Abdominal aorta is normal in caliber. Musculoskeletal: No concerning osseous lesion identified. Transitional lumbosacral vertebral body, wi th a pseudoarticulation on the right. Fluid / peritoneum: No significant free fluid. No free intraperitoneal air identified. IMPRESSION No acute abnormality identified in the abdomen or pelvis by CT. Electronically signed by: Katie Miranda MD 01/23/2021 12:38 AM SLUMBER ROOM ATTENDANT Due to temporary technical issues with the PACS/Fluency reporting system, reports are being signed by the in house radiologists without review as a courtesy to insure prompt reporting. The interpreting radiologist is fully responsible for the content of the report.
== END 2021-01-23 01:23 | disposition home or self-care (01) ==
LOC: ER 21:21
DX: R10.819 Abdominal tenderness, unspecified site (principal); F17.210 Nicotine dependence, cigarettes, uncomplicated
CPT/HCPCS: 96361; 87088; 85025; 87086; 80048; 36415; 81025; 82565; 80076; 81003; 83690; 74177; 96374; 99284; Q9967; J7030; J2405

== ENCOUNTER 2021-02-04 18:20 | Emergency (ER) | payer OTHER ==
--- OUTSIDE RECORDS SUMMARY | 2021-02-04 18:28 | XMS REPORT | Continuity of Care Document ---
:2000 Author Organization [facility] t Address [address] [place] [address] Care Team Providers Name Role Phone UNKNOWN, REFFERING Primary Care Physician Unavailable DANISH MONAHAN Attending Clinician Unavailable Adelita HAILEP Attending Clinician Provider, Db Urgent [facility] Attending Clinician Unavailable Visit, Nurse Attending Clinician Unavailable Hero KINGSTON, R Attending Clinician Doctor Unassigned, Name Attending Clinician Unavailable All WHEELER, T Attending Clinician Unavailable Only, Db Test Attending Clinician Unavailable [employer] Attending Clinician Akinsipe WHCNP, C Attending Clinician AKINSIPE, C Attending Clinician Unavailable Zuleima ORDONEZ Attending Clinician Miranda ORDONEZ Attending Clinician Malou ORDONEZ, M Attending Clinician Chel WHEELER, A Attending Clinician Unavailable Singer MORA Attending Clinician Ultrasound Attending Clinician Unavailable [place] ORDONEZ, F Attending Clinician Doug HAILEP, F Attending Clinician RASSOLI Attending Clinician Unavailable RASSOLI Admitting Clinician Unavailable Payers Payer Name Policy Type Policy Number Effective Date Expiration Date S osmin RHOADESS [id number] 2019 HEALTH 00:00:00 MEDICAID OF [place] [id number] 2019 00:00:00 Problems Condition Condition Condition Status Onset Resolution Last Treating Co mments Source Name Details Category Date Date Treatment Clinician Date Routine Routine Disease Active Univers 5-24 it y of [place] [facility] S/P S/P Disease Active Univers -06 ity of section section 00:00: [facility] Chorioamni Chorioamni Disease Active U nivers onitis onitis 06-26 ity of 00:00: [facility] Pre-eclamp Pre-eclamp Disease Active U nivers katy in katy in 06-26 ity of third third 00:00: [place] trimester trimester 00 [facility] Obesity Obesity Disease Active Univers (BMI (BMI 06-22 ity of 30-39.9) 30-39.9) 00:00: [facility] 40 weeks 40 weeks Disease Active Unive rs gestation gestation -02 ity of of of 00:00: [place] 00 [facility] Rubella Rubella Disease Active 2019-02 Overview: Univ ers non-immune non-immune 0-06 Formattin ity of status, status, 00:00: g of this [place] antepartum antepartum 00 note Me dical might be Branch different from the original. Address in PP. Maternal Maternal Disease Active 2019-02 Overview: Un consuelo varicella, varicella, 0-06 Formattin ity of non-immune non-immune 00:00: g of this [place] 00 note Medical might be Branch different from the original. Address in PP. Supervisio Supervisio Disease Active 2019-02 U nivers n of high n of high 0-06 ity of risk risk 00:00: [place] 00 [facility] in second in second Bran ch trimester trimester Obesity in Obesity in Disease Active 2019- U nivers 0-06 ity of 00:00: [place] 00 [facility] Primigravi Primigravi Disease Active 2019-02 U nivers da in da in 0-06 ity of second second 00:00: [place] trimester trimester 00 [facility] Nausea and Nausea and Disease Active 2020-1 U nivers vomiting vomiting 0-06 ity of during during 00:00: [place] 00 Medi yisel prior to prior to Branch 22 weeks 22 weeks gestation gestation No known No known Disease Unive rs active active ity of problems problems [facility] Allergies, Adverse Reactions, Alerts Allergy Allergy Status Severity Reaction(s) Onset Inactive Treating Comm ents Source Name Type Date Date Clinician NO KNOWN Drug Active Univers ALLERGIE Class ity of S [facility] Social History Social Habit Start Date Stop Date Quantity Comments Source ASSERTION 2019-09-30 University of 00:00:00 [facility] Exposure to Not sure University of SARS-CoV-2 [place] Medical (event) Branch History [facility] o f Alcohol Comment [place] Med ical Branch Alcohol intake 2021-01-25 2021-01-25 Lifetime University of 00:00:00 00:00:00 non-drinker [facility] (finding) Branch Tobacco use and 2020-08-04 2020-08-04 Never used Universit y of exposure 00:00:00 00:00:00 [place] Medical Branch History SDOH 2019-11-26 2019-11-26 1 University o f Alcohol Frequency 00:00:00 00:00:00 [place] M edical Branch History SDOH 2019-11-26 2019-11-26 99 University o f Alcohol Std 00:00:00 00:00:00 [place] Medical Drinks Branch History SDOH 2019-11-26 2019-11-26 1 University o f Alcohol Binge 00:00:00 00:00:00 [place] Medic al Branch Tobacco Comment 2019-11-26 2019-11-26 2-3 cigarretes Unive rsity of 00:00:00 00:00:00 per day [facility] Sex Assigned At [birth year] Universit y of 00:00:00 00:00:00 [facility] Smoking Status Start Date Stop Date Source Current every day smoker 2020-08-04 00:00:00 Uni versity of [facility] Current some day smoker 2020-07-14 00:00:00 Univ ersity [facility] Unknown if ever smoked Universit y of [facility] Medications Ordered Filled Start Stop Current Ordering Indication Dosage Frequency Signature Comments Components Source Medication Medication Date Date Medication? Clinician (SIG) Name Name HYDROCODONE 2020-02 Yes Take by Un consuelo -ACETAMINOP 2-05 mouth. ity of HEN ORAL 14:11: [address] Branch HYDROCODONE 2020-02 Yes Take by Un consuelo -ACETAMINOP 2-05 mouth. ity of HEN ORAL 14:11: [address] Branch HYDROCODONE 2020-02 Yes Take by Un consuelo -ACETAMINOP 2-05 mouth. ity of HEN ORAL 14:11: [address] Branch fluticasone 2020-02 Yes [id number] 1{spray Use 1 Univers propionate 2-05 } [place] in ity o f 50 00:00: each [place] mcg/actuati 00 nostril Medic al on nasal daily. Branch spray fluticasone 2020-02 Yes [id number] 1{spray Use 1 Univers propionate 2-05 } [place] ity o f 50 00:00: each [place] mcg/actuati 00 nostril Medic al on nasal daily. Branch spray fluticasone 2020-02 Yes [id number] 1{spray Use 1 Univers propionate 2-05 } [place] ity o f 50 00:00: each [place] mcg/actuati 00 nostril Medic al on nasal daily. Branch spray amoxicillin 2020-02- Yes [id number] 500mg Take 1 Univers 500 mg 2-05 12-13 capsule by ity of capsule 00:00: 05:59 mouth 3 [place] 00 :00 (three) Medical times Branch daily for 7 days. amoxicillin 2020-02- Yes [id number] 500mg Take 1 Univers 500 mg 2-05 12-13 capsule by ity of capsule 00:00: 05:59 mouth 3 [place] 00 :00 (three) Medical times Branch daily for 7 days. amoxicillin 2020-02- Yes [id number] 500mg Take 1 Univers 500 mg 2-05 12-13 capsule by ity of capsule 00:00: 05:59 mouth 3 [place] 00 :00 (three) Medical times Branch daily for 7 days. medroxyPROG 2020-02- No [id number] 150mg Univers ESTERone 0-18 10-18 ity of (DEPO-PROVE 20:28: 20:29 [place] ) 00 :00 Medical injection Branch 150 mg medroxyPROG 2020-02- No [id number] 150mg 150 mg, Univers ESTERone 0-18 10-18 Intramuscu ity of (DEPO-PROVE 20:28: 20:29 lar, ONCE, [place] RA) 00 :00 1 dose, On Medical injection Mon Branch 150 mg 12/08/20 at 1530, Routine medroxyPROG 2020- No [id number] 150mg Univers ESTERone 09-15 ity of (DEPO-PROVE 22:30: 21:22 [place] RA) 00 :00 Medical injection Branch 150 mg medroxyPROG 2020- No [id number] 150mg 150 mg, Univers ESTERone 09-15 Intramuscu ity of (DEPO-PROVE 22:30: 21:22 lar, ONCE, [place] RA) 00 :00 1 dose, Medical injection Mon Branch 150 mg 09/15/20 at 1730, Routine HYDROCODONE Yes Take by Un consuelo -ACETAMINOP 6-14 mouth. ity of HEN ORAL 20:47: [address] HYDROCODONE Yes Take by Un consuelo -ACETAMINOP 6-14 mouth. ity of HEN ORAL 20:47: [address] HYDROCODONE Yes Take by Un consuelo -ACETAMINOP 6-14 mouth. ity of HEN ORAL 20:47: [address] HYDROCODONE Yes Take by Un consuelo -ACETAMINOP 6-14 mouth. ity of HEN ORAL 20:47: [address] HYDROCODONE 0 Yes Take by Un consueol -ACETAMINOP 6-14 mouth. ity of HEN ORAL 20:47: [address] HYDROCODONE Yes Take by Un consuelo -ACETAMINOP 6-14 mouth. ity of HEN ORAL 20:47: [address] HYDROCODONE 0 Yes Take by Un consuelo -ACETAMINOP 6-14 mouth. ity of HEN ORAL 20:47: [address] HYDROCODONE 0 Yes Take by Un consuelo -ACETAMINOP 6-14 mouth. ity of HEN ORAL 20:47: [address] HYDROCODONE 0 Yes Take by Un consuelo -ACETAMINOP 6-14 mouth. ity of HEN ORAL 20:47: [address] HYDROCODONE 0 Yes Take by Un consuelo -ACETAMINOP 6-14 mouth. ity of HEN ORAL 20:47: [place] 27 Medical Branch HYDROCODONE Yes Take by Un consuelo -ACETAMINOP 6-14 mouth. ity of HEN ORAL 15:47: Medical Branch HYDROCODONE Yes Take by Un consuelo -ACETAMINOP 6-14 mouth. ity of HEN ORAL 15:47: Medical Branch HYDROCODONE Yes Take by Un consuelo -ACETAMINOP 6-14 mouth. ity of HEN ORAL 15:47: [place] [facility] Branch HYDROCODONE Yes Take by Un consuelo -ACETAMINOP 6-14 mouth. ity of HEN ORAL 15:47: [place] [facility] Branch Yes [id number] 1{tbl} Take 1 Univers vitamin 5-05 tablet by ity of w/FA tablet 00:00: mouth [place] 00 daily. Medical Branch docusate Yes [id number] 240mg Take 1 U nivers calcium 240 5-05 capsule by it y of mg capsule 00:00: mouth once [place] 00 daily as Medical needed for Branch Constipati on. ferrous Yes [id number] 325mg Take 1 Un consuelo sulfate 325 5-05 tablet by ity of mg (65 mg 00:00: mouth 2 [place] iron) 00 (two) Medical tablet times Branch daily. Yes [id number] 1{tbl} Take 1 Univers vitamin 5-05 tablet by ity of w/FA tablet 00:00: mouth [place] 00 daily. Medical Branch docusate Yes [id number] 240mg Take 1 U nivers calcium 240 5-05 capsule by it y of mg capsule 00:00: mouth once [place] 00 daily as Medical needed for Branch Constipati on. ferrous Yes [id number] 325mg Take 1 Un consuelo sulfate 325 5-05 tablet by ity of mg (65 mg 00:00: mouth 2 [place] iron) 00 (two) Medical tablet times Branch daily. Yes [id number] 1{tbl} Take 1 Univers vitamin 5-05 tablet by ity of w/FA tablet 00:00: mouth [place] 00 daily. Medical Branch docusate Yes [id number] 240mg Take 1 U nivers calcium 240 5-05 capsule by it y of mg capsule 00:00: mouth once [place] 00 daily as Medical needed for Branch Constipati on. ferrous Yes [id number] 325mg Take 1 Un consuelo sulfate 325 5-05 tablet by ity of mg (65 mg 00:00: mouth 2 [place] iron) 00 (two) Medical tablet times Branch daily. Yes [id number] 1{tbl} Take 1 Univers vitamin 5-05 tablet by ity of w/FA tablet 00:00: mouth [place] 00 daily. Medical Branch docusate Yes [id number] 240mg Take 1 U nivers calcium 240 5-05 capsule by it y of mg capsule 00:00: mouth once [place] 00 daily as Medical needed for Branch Constipati on. ferrous Yes [id number] 325mg Take 1 Un consuelo sulfate 325 5-05 tablet by ity of mg (65 mg 00:00: mouth 2 [place] iron) 00 (two) Medical tablet times Branch daily. Yes [id number] 1{tbl} Take 1 Univers vitamin 5-05 tablet by ity of w/FA tablet 00:00: mouth [place] 00 daily. Medical Branch docusate Yes [id number] 240mg Take 1 U nivers calcium 240 5-05 capsule by it y of mg capsule 00:00: mouth once [place] 00 daily as Medical needed for Branch Constipati on. ferrous Yes [id number] 325mg Take 1 Un consuelo sulfate 325 5-05 tablet by ity of mg (65 mg 00:00: mouth 2 [place] iron) 00 (two) Medical tablet times Branch daily. Yes [id number] 1{tbl} Take 1 Univers vitamin 5-05 tablet by ity of w/FA tablet 00:00: mouth [place] 00 daily. Medical Branch docusate Yes [id number] 240mg Take 1 U nivers calcium 240 5-05 capsule by it y of mg capsule 00:00: mouth once [place] 00 daily as Medical needed for Branch Constipati on. ferrous Yes [id number] 325mg Take 1 Un consuelo sulfate 325 5-05 tablet by ity of mg (65 mg 00:00: mouth 2 [place] iron) 00 (two) Medical tablet times Branch daily. Yes [id number] 1{tbl} Take 1 Univers vitamin 5-05 tablet by ity of w/FA tablet 00:00: mouth [place] 00 daily. Medical Branch docusate Yes [id number] 240mg Take 1 U nivers calcium 240 5-05 capsule by it y of mg capsule 00:00: mouth once [place] 00 daily as Medical needed for Branch Constipati on. ferrous Yes [id number] 325mg Take 1 Un consuelo sulfate 325 5-05 tablet by ity of mg (65 mg 00:00: mouth 2 [place] iron) 00 (two) Medical tablet times Branch daily. Yes [id number] 1{tbl} Take 1 Univers vitamin 5-05 tablet by ity of w/FA tablet 00:00: mouth [place] 00 daily. Medical Branch docusate Yes [id number] 240mg Take 1 U nivers calcium 240 5-05 capsule by it y of mg capsule 00:00: mouth once [place] 00 daily as Medical needed for Branch Constipati on. ferrous Yes [id number] 325mg Take 1 Un consuelo sulfate 325 5-05 tablet by ity of mg (65 mg 00:00: mouth 2 [place] iron) 00 (two) Medical tablet times Branch daily. Yes [id number] 1{tbl} Take 1 Univers vitamin 5-05 tablet by ity of w/FA tablet 00:00: mouth [place] 00 daily. Medical Branch docusate Yes [id number] 240mg Take 1 U nivers calcium 240 5-05 capsule by it y of mg capsule 00:00: mouth once [place] 00 daily as Medical needed for Branch Constipati on. ferrous Yes [id number] 325mg Take 1 Un consuelo sulfate 325 5-05 tablet by ity of mg (65 mg 00:00: mouth 2 [place] iron) 00 (two) Medical tablet times Branch daily. Yes [id number] 1{tbl} Take 1 Univers vitamin 5-05 tablet by ity of w/FA tablet 00:00: mouth [place] 00 daily. Medical Branch docusate Yes [id number] 240mg Take 1 U nivers calcium 240 5-05 capsule by it y of mg capsule 00:00: mouth once [place] 00 daily as Medical needed for Branch Constipati on. ferrous Yes [id number] 325mg Take 1 Un consuelo sulfate 325 5-05 tablet by ity of mg (65 mg 00:00: mouth 2 [place] iron) 00 (two) Medical tablet times Branch daily. Yes [id number] 1{tbl} Take 1 Univers vitamin 5-05 tablet by ity of w/FA tablet 00:00: mouth [place] 00 daily. Medical Branch docusate Yes [id number] 240mg Take 1 U nivers calcium 240 5-05 capsule by it y of mg capsule 00:00: mouth once [place] 00 daily as Medical needed for Branch Constipati on. ferrous Yes [id number] 325mg Take 1 Un consuelo sulfate 325 5-05 tablet by ity of mg (65 mg 00:00: mouth 2 [place] iron) 00 (two) Medical tablet times Branch daily. Yes [id number] 1{tbl} Take 1 Univers vitamin 5-05 tablet by ity of w/FA tablet 00:00: mouth [place] 00 daily. Medical Branch docusate Yes [id number] 240mg Take 1 U nivers calcium 240 5-05 capsule by it y of mg capsule 00:00: mouth once [place] 00 daily as Medical needed for Branch Constipati on. ferrous Yes [id number] 325mg Take 1 Un consuelo sulfate 325 5-05 tablet by ity of mg (65 mg 00:00: mouth 2 [place] iron) 00 (two) Medical tablet times Branch daily. Yes [id number] 1{tbl} Take 1 Univers vitamin 5-05 tablet by ity of w/FA tablet 00:00: mouth [place] 00 daily. Medical Branch docusate Yes [id number] 240mg Take 1 U nivers calcium 240 5-05 capsule by it y of mg capsule 00:00: mouth once [place] 00 daily as Medical needed for Branch Constipati on. ferrous Yes [id number] 325mg Take 1 Un consuelo sulfate 325 5-05 tablet by ity of mg (65 mg 00:00: mouth 2 [place] iron) 00 (two) Medical tablet times Branch daily. Yes [id number] 1{tbl} Take 1 Univers vitamin 5-05 tablet by ity of w/FA tablet 00:00: mouth [place] 00 daily. Medical Branch docusate Yes [id number] 240mg Take 1 U nivers calcium 240 5-05 capsule by it y of mg capsule 00:00: mouth once [place] 00 daily as Medical needed for Branch Constipati on. ferrous Yes [id number] 325mg Take 1 Un consuelo sulfate 325 5-05 tablet by ity of mg (65 mg 00:00: mouth 2 [place] iron) 00 (two) Medical tablet times Branch daily. Yes [id number] 1{tbl} Take 1 Univers vitamin 5-05 tablet by ity of w/FA tablet 00:00: mouth [place] 00 daily. Medical Branch docusate Yes [id number] 240mg Take 1 U nivers calcium 240 5-05 capsule by it y of mg capsule 00:00: mouth once [place] 00 daily as Medical needed for Branch Constipati on. ferrous Yes [id number] 325mg Take 1 Un consuelo sulfate 325 5-05 tablet by ity of mg (65 mg 00:00: mouth 2 [place] iron) 00 (two) Medical tablet times Branch daily. Yes [id number] 1{tbl} Take 1 Univers vitamin 5-05 tablet by ity of w/FA tablet 00:00: mouth [place] 00 daily. Medical Branch docusate Yes [id number] 240mg Take 1 U nivers calcium 240 5-05 capsule by it y of mg capsule 00:00: mouth once [place] 00 daily as Medical needed for Branch Constipati on. ferrous Yes [id number] 325mg Take 1 Un consuelo sulfate 325 5-05 tablet by ity of mg (65 mg 00:00: mouth 2 [place] iron) 00 (two) Medical tablet times Branch daily. Yes [id number] 1{tbl} Take 1 Univers vitamin 5-05 tablet by ity of w/FA tablet 00:00: mouth [place] 00 daily. Medical Branch docusate Yes [id number] 240mg Take 1 U nivers calcium 240 5-05 capsule by it y of mg capsule 00:00: mouth once [place] 00 daily as Medical needed for Branch Constipati on. ferrous Yes [id number] 325mg Take 1 Un consuelo sulfate 325 5-05 tablet by ity of mg (65 mg 00:00: mouth 2 [place] iron) 00 (two) Medical tablet times Branch daily. 2020- Yes [id number] 1{tbl} Take 1 Univers vitamin 5-05 tablet by ity of w/FA tablet 00:00: mouth [place] 00 daily. Medical Branch docusate Yes [id number] 240mg Take 1 U nivers calcium 240 5-05 capsule by it y of mg capsule 00:00: mouth once [place] 00 daily as Medical needed for Branch Constipati on. ferrous Yes [id number] 325mg Take 1 Un consuelo sulfate 325 5-05 tablet by ity of mg (65 mg 00:00: mouth 2 [place] iron) 00 (two) Medical tablet times Branch daily. Yes [id number] 1{tbl} Take 1 Univers vitamin 5-05 tablet by ity of w/FA tablet 00:00: mouth [place] 00 daily. Medical Branch docusate Yes [id number] 240mg Take 1 U nivers calcium 240 5-05 capsule by it y of mg capsule 00:00: mouth once [place] 00 daily as Medical needed for Branch Constipati on. ferrous Yes [id number] 325mg Take 1 Un consuelo sulfate 325 5-05 tablet by ity of mg (65 mg 00:00: mouth 2 [place] iron) 00 (two) Medical tablet times Branch daily. Yes [id number] 1{tbl} Take 1 Univers vitamin 5-05 tablet by ity of w/FA tablet 00:00: mouth [place] 00 daily. Medical Branch docusate Yes [id number] 240mg Take 1 U nivers calcium 240 5-05 capsule by it y of mg capsule 00:00: mouth once [place] 00 daily as Medical needed for Branch Constipati on. ferrous Yes [id number] 325mg Take 1 Un consuelo sulfate 325 5-05 tablet by ity of mg (65 mg 00:00: mouth 2 [place] iron) 00 (two) Medical tablet times Branch daily. acetaminoph 2021- No [id number] 650mg Take 2 Univers en 5-05 05-06 tablets by ity of (TYLENOL) 00:00: 04:59 mouth [place] 325 mg 00 :00 every 6 Medical tablet (six) Branch hours as needed for Pain (scale 1-3). acetaminoph 2021- No [id number] 650mg Take 2 Univers en 5-05 05-06 tablets by ity of (TYLENOL) 00:00: 04:59 mouth [place] 325 mg 00 :00 every 6 Medical tablet (six) Branch hours as needed for Pain (scale 1-3). acetaminoph 2021- No [id number] 650mg Take 2 Univers en 5-05 05-06 tablets by ity of (TYLENOL) 00:00: 04:59 mouth [place] 325 mg 00 :00 every 6 Medical tablet (six) Branch hours as needed for Pain (scale 1-3). acetaminoph 2021- No [id number] 650mg Take 2 Univers en 5-05 05-06 tablets by ity of (TYLENOL) 00:00: 04:59 mouth [place] 325 mg 00 :00 every 6 Medical tablet (six) Branch hours as needed for Pain (scale 1-3). acetaminoph 2021- No [id number] 650mg Take 2 Univers en 5-05 05-06 tablets by ity of (TYLENOL) 00:00: 04:59 mouth [place] 325 mg 00 :00 every 6 Medical tablet (six) Branch hours as needed for Pain (scale 1-3). acetaminoph 2021- No [id number] 650mg Take 2 Univers en 5-05 05-06 tablets by ity of (TYLENOL) 00:00: 04:59 mouth [place] 325 mg 00 :00 every 6 Medical tablet (six) Branch hours as needed for Pain (scale 1-3). acetaminoph 2021- No [id number] 650mg Take 2 Univers en 5-05 05-06 tablets by ity of (TYLENOL) 00:00: 04:59 mouth [place] 325 mg 00 :00 every 6 Medical tablet (six) Branch hours as needed for Pain (scale 1-3). acetaminoph 2021- No [id number] 650mg Take 2 Univers en 5-05 05-06 tablets by ity of (TYLENOL) 00:00: 04:59 mouth [place] 325 mg 00 :00 every 6 Medical tablet (six) Branch hours as needed for Pain (scale 1-3). acetaminoph 2021- No [id number] 650mg Take 2 Univers en 5-05 05-06 tablets by ity of (TYLENOL) 00:00: 04:59 mouth [place] 325 mg 00 :00 every 6 Medical tablet (six) Branch hours as needed for Pain (scale 1-3). acetaminoph 2021- No [id number] 650mg Take 2 Univers en 5-05 05-06 tablets by ity of (TYLENOL) 00:00: 04:59 mouth [place] 325 mg 00 :00 every 6 Medical tablet (six) Branch hours as needed for Pain (scale 1-3). acetaminoph 2021- No [id number] 650mg Take 2 Univers en 5-05 05-06 tablets by ity of (TYLENOL) 00:00: 04:59 mouth [place] 325 mg 00 :00 every 6 Medical tablet (six) Branch hours as needed for Pain (scale 1-3). acetaminoph 2021- No [id number] 650mg Take 2 Univers en 5-05 05-06 tablets by ity of (TYLENOL) 00:00: 04:59 mouth [place] 325 mg 00 :00 every 6 Medical tablet (six) Branch hours as needed for Pain (scale 1-3). acetaminoph 2021- No [id number] 650mg Take 2 Univers en 5-05 05-06 tablets by ity of (TYLENOL) 00:00: 04:59 mouth [place] 325 mg 00 :00 every 6 Medical tablet (six) Branch hours as needed for Pain (scale 1-3). acetaminoph 2021- No [id number] 650mg Take 2 Univers en 5-05 05-06 tablets by ity of (TYLENOL) 00:00: 04:59 mouth [place] 325 mg 00 :00 every 6 Medical tablet (six) Branch hours as needed for Pain (scale 1-3). acetaminoph 2021- No [id number] 650mg Take 2 Univers en 5-05 05-06 tablets by ity of (TYLENOL) 00:00: 04:59 mouth [place] 325 mg 00 :00 every 6 Medical tablet (six) Branch hours as needed for Pain (scale 1-3). acetaminoph 2021- No [id number] 650mg Take 2 Univers en 5-05 05-06 tablets by ity of (TYLENOL) 00:00: 04:59 mouth [place] 325 mg 00 :00 every 6 Medical tablet (six) Branch hours as needed for Pain (scale 1-3). acetaminoph 2021- No [id number] 650mg Take 2 Univers en 5-05 05-06 tablets by ity of (TYLENOL) 00:00: 04:59 mouth [place] 325 mg 00 :00 every 6 Medical tablet (six) Branch hours as needed for Pain (scale 1-3). acetaminoph 2021- No [id number] 650mg Take 2 Univers en 5-05 05-06 tablets by ity of (TYLENOL) 00:00: 04:59 mouth [place] 325 mg 00 :00 every 6 Medical tablet (six) Branch hours as needed for Pain (scale 1-3). acetaminoph 2021- No [id number] 650mg Take 2 Univers en 5-05 05-06 tablets by ity of (TYLENOL) 00:00: 04:59 mouth [place] 325 mg 00 :00 every 6 Medical tablet (six) Branch hours as needed for Pain (scale 1-3). acetaminoph 2021- No [id number] 650mg Take 2 Univers en 5-05 05-06 [...] IV Push, ity of (PF)) 14:02: Q8HPRN, [place] injection 4 03 Starting Medi yisel mg Tue06/24/20 Branch at 0902, Until Discontinu ed, Routine, Nausea and Vomiting (N/V) bisacodyL Yes 10mg 10 mg, Univer s (DULCOLAX) 5-04 Rectal, ity of suppository 14:02: QDAILYPRN, [place] 10 mg 03 Starting Medical Tue06/24/20 Branch [...] HYDROcodone Yes 1{tbl} [Order 1 Univers -acetaminop 5- Start] ity of hen (NORCO 13:12: Name: [place] 5) 5-325 mg 41 HYDROcodon Me dical [...] 00 :39 PROCEDURE, Medi yisel Starting Branch 06/23/20 at 2146, Until Tue06/23/20 at 2220, Routine, Intra-op PHENYLephri 2020- No Slow IV Un consuelo ne 1000 5- 05-04 Push, ONCE ity o f mcg/10 mL 02:38: 03:20 INTRA [place] in 0.9% 00 :39 PROCEDURE, Medica l NaCl Starting Branch syringe 06/23/20 at 2137, Until 06/23/20 at 2219, Routine, Intra-op morpHINE PF 2020- No Intravenou Univers (DURAMORPH- 06-24 s, ONCE ity of PF) 02:23: 03:20 INTRA [place] injection 00 :39 PROCEDURE, Medi yisel Starting Branch 06/23/20 at 2122, Until Discontinu ed, Routine, Intra-op LR 1000 mL 2020- No IV Univer s + oxytocin 06-24 Infusion, ity of 40 units 40 02:17: 03:20 CONTINUOUS [place] unit/ 1,000 00 :39 PRN, Medical mL IV Starting Branch Solution Tue06/23/20 at 2116, Until Discontinu ed, Routine, Intra-op FENTanyl PF 2020- No Intravenou Univers (SUBLIMAZE 06-24 s, ONCE ity o f (PF)) 02:17: 03:20 INTRA [place] injection 00 :39 PROCEDURE, [facility] yisel Starting Branch Tue06/23/20 at 2116, Until Discontinu ed, Routine, Intra-op metroNIDAZO Yes 500mg 500 mg, IV Univers LE in NaCl 06-24 Piggyback, ity of (iso-os) 02:15: Q8H ABX, [place] (FLAGYL 00 First dose Medica l I.V.) RTU on Tue IV infusion 06/23/20 at 500 mg 2114, Until Discontinu ed, 100 mL
Reas on for Anti-Infec tive: Surgical Prophylaxi s
Surgi yisel Prophylaxi s: 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
Duration of therapy: within 24 hours of surgery midazolam 2020- No IV Push, Uni vers (VERSED) 06-24- ONCE INTRA ity of injection 02:10: 03:20 PROCEDURE, [place] 00 :39 Starting Medical [facility] 06/23/20 Branch at 2109, Until Discontinu ed, Routine, Intra-op succinylcho 2020- No IV Push, U nivers line 06-24- ONCE INTRA ity of (QUELICIN) 02:08: 03:20 PROCEDURE, [place] injection 00 :39 Starting Medica l 06/23/20 Branch at 2108, Until Discontinu ed, Routine, Intra-op propofoL IV 2020- No Intravenou Univers infusion 06-24- s, ONCE ity of 02:08: 03:20 INTRA [place] 00 :39 PROCEDURE, Medical Starting Branch [facility] 06/23/20 at 2108, Until Discontinu ed, Routine, Intra-op lactated 2020- No Intravenou Un consuelo ringers IV 06-24- s, ity of infusion 02:01: 03:20 CONTINUOUS [place] 00 :[place] PRN, Medical Starting Branch [facility] 06/23/20 at 2101, Until Discontinu ed, Routine, Intra-op lidocaine 2020- No Epidural, Un consuelo 2% + 06-24- CONTINUOUS ity of epinephrine 01:52: 03:20 PRN, [place] 1:1000 + 00 :39 Starting Medical fentanyl 50 Mon 06/23/20 Br anch mcg/mL at 2051, Until Tue06/23/20 at 0, Routine, Intra-op FENTanyl 2 2020- No Intra-op Un consuelo mcg/mL + 06-23-04 ity of bupivacaine 05:11: 03:20 [place] 0.1% in NS 00 :39 Medical 250 mL Branch epidural bag lidocaine-e 2020- No Intraderma Univers pinephrine 06-23-04 l, ONCE ity o f (XYLOCAINE 05:07: 03:20 INTRA [place] W/EPINEPHRI 00 :39 PROCEDURE, Me dical NE) 1.5 Starting Branch %-1:200,000 06/23/20 injection at 0007, Until Discontinu ed, Routine, Intra-op lidocaine 2020- No Infiltrati U nivers 1% 06-2304 on, ONCE ity of (XYLOCAINE) 05:06: 03:20 INTRA [place] 100 mg/10 00 :39 PROCEDURE, Medi yisel mL (1 %) Starting Branch injection 06/23/20 at 0006, Until Discontinu ed, Routine, Intra-op dexamethaso 2020- No 10mg 10 mg, Uni vers ne 04-24-04 Oral, ity of (DECADRON 21:30: 20:45 ONCE, 1 [place] PHOSPH[place] 00 :00 dose, [place] Medi yisel injection 04/24/20 at [facility] [place] h 10 mg 1530, Routine proMETHazin 2019-02 Yes [id number] 25mg Take 1 Univers e 25 mg 2-21 tablet by ity of tablet 00:00: mouth [place] 00 every 4 Medical (four) Branch hours as needed for Nausea and Vomiting (N/V). proMETHazin 2019-02 Yes [id number] 25mg Take 1 Univers e 25 mg 2-21 tablet by ity of tablet 00:00: mouth [place] 00 every 4 Medical (four) Branch hours as needed for Nausea and Vomiting (N/V). proMETHazin 2019-02 Yes [id number] 25mg Take 1 Univers e 25 mg 2-21 tablet by ity of tablet 00:00: mouth [place] 00 every 4 Medical (four) Branch hours as needed for Nausea and Vomiting (N/V). proMETHazin 2019-02 Yes [id number] 25mg Take 1 Univers e 25 mg 2-21 tablet by ity of tablet 00:00: mouth [place] 00 every 4 Medical (four) Branch hours as needed for Nausea and Vomiting (N/V). proMETHazin 2019-02 Yes [id number] 25mg Take 1 Univers e 25 mg 2-21 tablet by ity of tablet 00:00: mouth [place] 00 every 4 Medical (four) Branch hours as needed for Nausea and Vomiting (N/V). proMETHazin 2019-02 Yes [id number] 25mg Take 1 Univers e 25 mg 2-21 tablet by ity of tablet 00:00: mouth [place] 00 every 4 Medical (four) Branch hours as needed for Nausea and Vomiting (N/V). proMETHazin 2019-02 Yes [id number] 25mg Take 1 Univers e 25 mg 2-21 tablet by ity of tablet 00:00: mouth [place] 00 every 4 Medical (four) Branch hours as needed for Nausea and Vomiting (N/V). proMETHazin 2019-02 Yes [id number] 25mg Take 1 Univers e 25 mg 2-21 tablet by ity of tablet 00:00: mouth [place] 00 every 4 Medical (four) Branch hours as needed for Nausea and Vomiting (N/V). proMETHazin 2019-02 Yes [id number] 25mg Take 1 Univers e 25 mg 2-21 tablet by ity of tablet 00:00: mouth [place] 00 every 4 Medical (four) Branch hours as needed for Nausea and Vomiting (N/V). proMETHazin 2020-1 Yes [id number] 25mg Take 1 Univers e 25 mg 2-21 tablet by ity of tablet 00:00: mouth [place] 00 every 4 Medical (four) Branch hours as needed for Nausea and Vomiting (N/V). proMETHazin 2020-1 Yes [id number] 25mg Take 1 Univers e 25 mg 2-21 tablet by ity of tablet 00:00: mouth [place] 00 every 4 Medical (four) Branch hours as needed for Nausea and Vomiting (N/V). proMETHazin 2020-1 Yes [id number] 25mg Take 1 Univers e 25 mg 2-21 tablet by ity of tablet 00:00: mouth [place] 00 every 4 Medical (four) Branch hours as needed for Nausea and Vomiting (N/V). proMETHazin 2019-1 Yes [id number] 25mg Take 1 Univers e 25 mg 2-21 tablet by ity of tablet 00:00: mouth [place] 00 every 4 Medical (four) Branch hours as needed for Nausea and Vomiting (N/V). proMETHazin 2019-1 Yes [id number] 25mg Take 1 Univers e 25 mg 2-21 tablet by ity of tablet 00:00: mouth [place] 00 every 4 Medical (four) Branch hours as needed for Nausea and Vomiting (N/V). proMETHazin 2020-1 Yes [id number] 25mg Take 1 Univers e 25 mg 2-21 tablet by ity of tablet 00:00: mouth [place] 00 every 4 Medical (four) Branch hours as needed for Nausea and Vomiting (N/V). proMETHazin 2020-1 Yes [id number] 25mg Take 1 Univers e 25 mg 2-21 tablet by ity of tablet 00:00: mouth [place] 00 every 4 Medical (four) Branch hours as needed for Nausea and Vomiting (N/V). proMETHazin 2020-1 Yes [id number] 25mg Take 1 Univers e 25 mg 2-21 tablet by ity of tablet 00:00: mouth [place] 00 every 4 Medical (four) Branch hours as needed for Nausea and Vomiting (N/V). proMETHazin 2020-1 Yes [id number] 25mg Take 1 Univers e 25 mg 2-21 tablet by ity of tablet 00:00: mouth [place] 00 every 4 Medical (four) Branch hours as needed for Nausea and Vomiting (N/V). proMETHazin 2019-02 Yes [id number] 25mg Take 1 Univers e 25 mg 2-21 tablet by ity of tablet 00:00: mouth [place] 00 every 4 Medical (four) Branch hours as needed for Nausea and Vomiting (N/V). 2019-02 Yes [id number] 1{packe Take 1 Univers vit 0-12 t} Packet by ity of 33-iron-fol 00:00: mouth [place] ic-dha 00 daily. Medical ([facility] Branch + DHA) 29 mg iron-1 mg -250 mg combo pack 2019-02 Yes [id number] 1{packe Take 1 Univers vit 0-12 t} Packet by ity of 33-iron-fol 00:00: mouth [place] ic-dha 00 daily. Medical ([facility] Branch + DHA) 29 mg iron-1 mg -250 mg combo pack 2019-02 Yes [id number] 1{packe Take 1 Univers vit 0-12 t} Packet by ity of 33-iron-fol 00:00: mouth [place] ic-dha 00 daily. Medical ([facility] Branch + DHA) 29 mg iron-1 mg -250 mg combo pack 2019-02 Yes [id number] 1{packe Take 1 Univers vit 0-12 t} Packet by ity of 33-iron-fol 00:00: mouth [place] ic-dha 00 daily. Medical ([facility] Branch + DHA) 29 mg iron-1 mg -250 mg combo pack 2019-02 Yes [id number] 1{packe Take 1 Univers vit 0-12 t} Packet by ity of 33-iron-fol 00:00: mouth [place] ic-dha 00 daily. Medical ([facility] Branch + DHA) 29 mg iron-1 mg -250 mg combo pack 2019-02 Yes [id number] 1{packe Take 1 Univers vit 0-12 t} Packet by ity of 33-iron-fol 00:00: mouth [place] ic-dha 00 daily. Medical ([facility] Branch + DHA) 29 mg iron-1 mg -250 mg combo pack 2019-02 Yes [id number] 1{packe Take 1 Univers vit 0-12 t} Packet by ity of 33-iron-fol 00:00: mouth [place] ic-dha 00 daily. Medical ([facility] Branch + DHA) 29 mg iron-1 mg -250 mg combo pack 2019- Yes [id number] 1{packe Take 1 Univers vit 0-12 t} Packet by ity of 33-iron-fol 00:00: mouth [place] ic-dha 00 daily. Medical ([facility] Branch + DHA) 29 mg iron-1 mg -250 mg combo pack 2019-02 Yes [id number] 1{packe Take 1 Univers vit 0-12 t} Packet by ity of 33-iron-fol 00:00: mouth [place] ic-dha 00 daily. Medical ([facility] Branch + DHA) 29 mg iron-1 mg -250 mg combo pack 2019-02 Yes [id number] 1{packe Take 1 Univers vit 0-12 t} Packet by ity of 33-iron-fol 00:00: mouth [place] ic-dha 00 daily. Medical ([facility] Branch + DHA) 29 mg iron-1 mg -250 mg combo pack 2019-02 Yes [id number] 1{packe Take 1 Univers vit 0-12 t} Packet by ity of 33-iron-fol 00:00: mouth [place] ic-dha 00 daily. Medical ([facility] Branch + DHA) 29 mg iron-1 mg -250 mg combo pack 2019-02 Yes [id number] 1{packe Take 1 Univers vit 0-12 t} Packet by ity of 33-iron-fol 00:00: mouth [place] ic-dha 00 daily. Medical ([facility] Branch + DHA) 29 mg iron-1 mg -250 mg combo pack 2019-02 Yes [id number] 1{packe Take 1 Univers vit 0-12 t} Packet by ity of 33-iron-fol 00:00: mouth [place] ic-dha 00 daily. Medical ([facility] Branch + DHA) 29 mg iron-1 mg -250 mg combo pack 2019-02 Yes [id number] 1{packe Take 1 Univers vit 0-12 t} Packet by ity of 33-iron-fol 00:00: mouth [place] ic-dha 00 daily. Medical ([facility] Branch + DHA) 29 mg iron-1 mg -250 mg combo pack 2019-02 Yes [id number] 1{packe Take 1 Univers vit 0-12 t} Packet by ity of 33-iron-fol 00:00: mouth [place] ic-dha 00 daily. Medical ([facility] Branch + DHA) 29 mg iron-1 mg -250 mg combo pack 2019-02 Yes [id number] 1{packe Take 1 Univers vit 0-12 t} Packet by ity of 33-iron-fol 00:00: mouth [place] ic-dha 00 daily. Medical ([facility] Branch + DHA) 29 mg iron-1 mg -250 mg combo pack 2019-02 Yes [id number] 1{packe Take 1 Univers vit 0-12 t} Packet by ity of 33-iron-fol 00:00: mouth [place] ic-dha 00 daily. Medical ([facility] Branch + DHA) 29 mg iron-1 mg -250 mg combo pack 2019-02 Yes [id number] 1{packe Take 1 Univers vit 0-12 t} Packet by ity of 33-iron-fol 00:00: mouth [place] ic-dha 00 daily. Medical ([facility] Branch + DHA) 29 mg iron-1 mg -250 mg combo pack 2019-02 Yes [id number] 1{packe Take 1 Univers vit 0-12 t} Packet by ity of 33-iron-fol 00:00: mouth [place] ic-dha 00 daily. Medical ([facility] Branch + DHA) 29 mg iron-1 mg -250 mg combo pack 2019-02 Yes [id number] 1{packe Take 1 Univers vit 0-12 t} Packet by ity of 33-iron-fol 00:00: mouth [place] ic-dha 00 daily. Medical ([facility] Branch + DHA) 29 mg iron-1 mg -250 mg combo pack 2019-02 Yes [id number] 1{packe Take 1 Univers vit 0-12 t} Packet by ity of 33-iron-fol 00:00: mouth [place] ic-dha 00 daily. Medical ([facility] Branch + DHA) 29 mg iron-1 mg -250 mg combo pack 2019-02 Yes [id number] 1{packe Take 1 Univers vit 0-12 t} Packet by ity of 33-iron-fol 00:00: mouth [place] ic-dha 00 daily. Medical ([facility] Branch + DHA) 29 mg iron-1 mg -250 mg combo pack 2019-02 Yes [id number] 1{packe Take 1 Univers vit 0-12 t} Packet by ity of 33-iron-fol 00:00: mouth [place] ic-dha 00 daily. Medical ([facility] Branch + DHA) 29 mg iron-1 mg -250 mg combo pack 2019-02 Yes [id number] 1{packe Take 1 Univers vit 0-12 t} Packet by ity of 33-iron-fol 00:00: mouth [place] ic-dha 00 daily. Medical ([facility] Branch + DHA) 29 mg iron-1 mg -250 mg combo pack 2019-02 Yes [id number] 1{packe Take 1 Univers vit 0-12 t} Packet by ity of 33-iron-fol 00:00: mouth [place] ic-dha daily. [facility] 29 mg iron-1 mg -250 mg combo pack 2019-02 Yes [id number] 1{packe Take 1 Univers vit 0-12 t} Packet by ity of 33-iron-fol 00:00: mouth [place] ic-dha daily. Medical ([facility] Branch + DHA) 29 mg iron-1 mg -250 mg combo pack 2019-02 Yes [id number] 1{packe Take 1 Univers vit 0-12 t} Packet by ity of 33-iron-fol 00:00: mouth [place] ic-dha daily. Medical [facility] 29 mg iron-1 mg -250 mg combo pack 2019-02 Yes [id number] 1{packe Take 1 Univers vit 0-12 t} Packet by ity of 33-iron-fol 00:00: mouth [place] ic-dha daily. Medical ([facility] Branch + DHA) 29 mg iron-1 mg -250 mg combo pack 2019-02 Yes [id number] 1{packe Take 1 Univers vit 0-12 t} Packet by ity of 33-iron-fol 00:00: mouth [place] ic-dha 00 daily. Medical ([facility] Branch + DHA) 29 mg iron-1 mg -250 mg combo pack metroNIDAZO 2019-02 2020- No [id number] 1000mg Take 2 Univers LE 500 mg 0-07 10-09 tablets by ity of tablet 00:00: 04:59 mouth 2 [place] 00 :00 (two) Medical times Branch daily for 1 day. metroNIDAZO 2019-02- No [id number] 1000mg Take 2 Univers LE 500 mg 0-07 10-09 tablets by ity of tablet 00:00: 04:59 mouth 2 [place] 00 :00 (two) Medical times Branch daily for 1 day. metroNIDAZO 2019-02- No [id number] 1000mg Take 2 Univers LE 500 mg 0-07 10-09 tablets by ity of tablet 00:00: 04:59 mouth 2 [place] 00 :00 (two) Medical times Branch daily for 1 day. metroNIDAZO 2019-02- No [id number] 1000mg Take 2 Univers LE 500 mg 0-07 10-09 tablets by ity of tablet 00:00: 04:59 mouth 2 [place] 00 :00 (two) Medical times Branch daily for 1 day. proMETHazin 2019-02 Yes [id number] 25mg Take 1 Univers e 25 mg 0-05 tablet by ity of tablet 00:00: mouth [place] 00 every 4 Medical (four) Branch hours as needed for Nausea and Vomiting (N/V). proMETHazin 2019-02 Yes [id number] 25mg Take 1 Univers e 25 mg 0-05 tablet by ity of tablet 00:00: mouth [place] 00 every 4 Medical (four) Branch hours as needed for Nausea and Vomiting (N/V). proMETHazin 2019-02 Yes [id number] 25mg Take 1 Univers e 25 mg 0-05 tablet by ity of tablet 00:00: mouth [place] 00 every 4 Medical (four) Branch hours as needed for Nausea and Vomiting (N/V). proMETHazin 2019-02 Yes [id number] 25mg Take 1 Univers e 25 mg 0-05 tablet by ity of tablet 00:00: mouth [place] 00 every 4 Medical (four) Branch hours as needed for Nausea and Vomiting (N/V). proMETHazin 2019-02 Yes [id number] 25mg Take 1 Univers e 25 mg 0-05 tablet by ity of tablet 00:00: mouth [place] 00 every 4 Medical (four) Branch hours as needed for Nausea and Vomiting (N/V). proMETHazin 2019-02 Yes [id number] 25mg Take 1 Univers e 25 mg 0-05 tablet by ity of tablet 00:00: mouth [place] 00 every 4 Medical (four) Branch hours as needed for Nausea and Vomiting (N/V). proMETHazin 2020-1 Yes [id number] 25mg Take 1 Univers e 25 mg 0-05 tablet by ity of tablet 00:00: mouth [place] 00 every 4 Medical (four) Branch hours as needed for Nausea and Vomiting (N/V). proMETHazin 2020-1 Yes [id number] 25mg Take 1 Univers e 25 mg 0-05 tablet by ity of tablet 00:00: mouth [place] 00 every 4 Medical (four) Branch hours as needed for Nausea and Vomiting (N/V). proMETHazin 2020-1 Yes [id number] 25mg Take 1 Univers e 25 mg 0-05 tablet by ity of tablet 00:00: mouth [place] 00 every 4 Medical (four) Branch hours as needed for Nausea and Vomiting (N/V). proMETHazin 2020-1 Yes [id number] 25mg Take 1 Univers e 25 mg 0-05 tablet by ity of tablet 00:00: mouth [place] 00 every 4 Medical (four) Branch hours as needed for Nausea and Vomiting (N/V). proMETHazin 2019-1 Yes [id number] 25mg Take 1 Univers e 25 mg 0-05 tablet by ity of tablet 00:00: mouth [place] 00 every 4 Medical (four) Branch hours as needed for Nausea and Vomiting (N/V). proMETHazin 2020-1 Yes [id number] 25mg Take 1 Univers e 25 mg 0-05 tablet by ity of tablet 00:00: mouth [place] 00 every 4 Medical (four) Branch hours as needed for Nausea and Vomiting (N/V). proMETHazin 2019-1 Yes [id number] 25mg Take 1 Univers e 25 mg 0-05 tablet by ity of tablet 00:00: mouth [place] 00 every 4 Medical (four) Branch hours as needed for Nausea and Vomiting (N/V). proMETHazin 2020-1 Yes [id number] 25mg Take 1 Univers e 25 mg 0-05 tablet by ity of tablet 00:00: mouth [place] 00 every 4 Medical (four) Branch hours as needed for Nausea and Vomiting (N/V). proMETHazin 2020-1 Yes [id number] 25mg Take 1 Univers e 25 mg 0-05 tablet by ity of tablet 00:00: mouth [place] 00 every 4 Medical (four) Branch hours as needed for Nausea and Vomiting (N/V). proMETHazin 2020-1 Yes [id number] 25mg Take 1 Univers e 25 mg 0-05 tablet by ity of tablet 00:00: mouth [place] 00 every 4 Medical (four) Branch hours as needed for Nausea and Vomiting (N/V). proMETHazin 2020-1 Yes [id number] 25mg Take 1 Univers e 25 mg 0-05 tablet by ity of tablet 00:00: mouth [place] 00 every 4 Medical (four) Branch hours as needed for Nausea and Vomiting (N/V). proMETHazin 2020-1 Yes [id number] 25mg Take 1 Univers e 25 mg 0-05 tablet by ity of tablet 00:00: mouth [place] 00 every 4 Medical (four) Branch hours as needed for Nausea and Vomiting (N/V). proMETHazin 2019-02 2020- No [id number] 25mg Take 1 Univers e 25 mg 0-05 12-17 tablet by ity of tablet 00:00: 00:00 mouth [place] 00 :00 every 4 Medical (four) Branch hours as needed for Nausea and Vomiting (N/V). metoclopram 2019-0 2019- No 10mg 10 mg, Uni vers ghulam HCl 11-11 Slow IV ity of (REGLAN) 21:45: 20:53 Push, [place] injection 00 :00 ONCE, 1 Medical 10 mg dose, [facility] Branch 11/12/19 at 1645, ELGIN NaCl 0.9% 2019-0 2020- No 1000mL at 999 Uni vers (NS) bolus 11-11 mL/hr, ity of infusion 20:45: 22:02 1,000 mL, [place] as 1,000 mL 00 :00 IV Medical Infusion, Branch ONCE, 1 dose, [facility] 11/12/19 at 1545, ELGIN metoclopram 2020-0 Yes [id number] 10mg Take 1 Univers ghulam HCl 10 9-21 tablet by ity of mg tablet 00:00: mouth [place] 00 every 6 Medical (six) Branch hours as needed for Nausea and Vomiting (N/V). metoclopram 2020-0 Yes [id number] 10mg Take 1 Univers ghulam HCl 10 9-21 tablet by ity of mg tablet 00:00: mouth [place] 00 every 6 Medical (six) Branch hours as needed for Nausea and Vomiting (N/V). metoclopram 2020-0 Yes [id number] 10mg Take 1 Univers ghulam HCl 10 9-21 tablet by ity of mg tablet 00:00: mouth [place] 00 every 6 Medical (six) Branch hours as needed for Nausea and Vomiting (N/V). metoclopram 2020-0 Yes [id number] 10mg Take 1 Univers ghulam HCl 10 9-21 tablet by ity of mg tablet 00:00: mouth [place] 00 every 6 Medical (six) Branch hours as needed for Nausea and Vomiting (N/V). metoclopram 2020-0 Yes [id number] 10mg Take 1 Univers ghulam HCl 10 9-21 tablet by ity of mg tablet 00:00: mouth [place] 00 every 6 Medical (six) Branch hours as needed for Nausea and Vomiting (N/V). metoclopram 2020-0 Yes [id number] 10mg Take 1 Univers ghulam HCl 10 9-21 tablet by ity of mg tablet 00:00: mouth [place] 00 every 6 Medical (six) Branch hours as needed for Nausea and Vomiting (N/V). metoclopram 2020-0 Yes [id number] 10mg Take 1 Univers ghulam HCl 10 9-21 tablet by ity of mg tablet 00:00: mouth [place] 00 every 6 Medical (six) Branch hours as needed for Nausea and Vomiting (N/V). metoclopram 2020-0 Yes [id number] 10mg Take 1 Univers ghulam HCl 10 9-21 tablet by ity of mg tablet 00:00: mouth [place] 00 every 6 Medical (six) Branch hours as needed for Nausea and Vomiting (N/V). metoclopram 2020-0 Yes [id number] 10mg Take 1 Univers ghulam HCl 10 9-21 tablet by ity of mg tablet 00:00: mouth [place] 00 every 6 Medical (six) Branch hours as needed for Nausea and Vomiting (N/V). metoclopram 2020-0 Yes [id number] 10mg Take 1 Univers ghulam HCl 10 9-21 tablet by ity of mg tablet 00:00: mouth [place] 00 every 6 Medical (six) Branch hours as needed for Nausea and Vomiting (N/V). metoclopram 2020-0 Yes [id number] 10mg Take 1 Univers ghulam HCl 10 9-21 tablet by ity of mg tablet 00:00: mouth [place] 00 every 6 Medical (six) Branch hours as needed for Nausea and Vomiting (N/V). metoclopram 2020-0 Yes [id number] 10mg Take 1 Univers ghulam HCl 10 9-21 tablet by ity of mg tablet 00:00: mouth [place] 00 every 6 Medical (six) Branch hours as needed for Nausea and Vomiting (N/V). metoclopram 2020-0 Yes [id number] 10mg Take 1 Univers ghulam HCl 10 9-21 tablet by ity of mg tablet 00:00: mouth [place] 00 every 6 Medical (six) Branch hours as needed for Nausea and Vomiting (N/V). metoclopram 2020-0 Yes [id number] 10mg Take 1 Univers ghulam HCl 10 9-21 tablet by ity of mg tablet 00:00: mouth [place] 00 every 6 Medical (six) Branch hours as needed for Nausea and Vomiting (N/V). metoclopram 2020-0 Yes [id number] 10mg Take 1 Univers ghulam HCl 10 9-21 tablet by ity of mg tablet 00:00: mouth [place] 00 every 6 Medical (six) Branch hours as needed for Nausea and Vomiting (N/V). metoclopram 2020-0 Yes [id number] 10mg Take 1 Univers ghulam HCl 10 9-21 tablet by ity of mg tablet 00:00: mouth [place] 00 every 6 Medical (six) Branch hours as needed for Nausea and Vomiting (N/V). metoclopram 2020-0 Yes [id number] 10mg Take 1 Univers ghulam HCl 10 9-21 tablet by ity of mg tablet 00:00: mouth [place] 00 every 6 Medical (six) Branch hours as needed for Nausea and Vomiting (N/V). metoclopram 2020-0 Yes [id number] 10mg Take 1 Univers ghulam HCl 10 9-21 tablet by ity of mg tablet 00:00: mouth [place] 00 every 6 Medical (six) Branch hours as needed for Nausea and Vomiting (N/V). metoclopram 2020-0 Yes [id number] 10mg Take 1 Univers ghulam HCl 10 9-21 tablet by ity of mg tablet 00:00: mouth [place] 00 every 6 Medical (six) Branch hours as needed for Nausea and Vomiting (N/V). metoclopram 2020-0 Yes [id number] 10mg Take 1 Univers ghulam HCl 10 9-21 tablet by ity of mg tablet 00:00: mouth [place] 00 every 6 Medical (six) Branch hours as needed for Nausea and Vomiting (N/V). metoclopram 2020-0 Yes [id number] 10mg Take 1 Univers ghulam HCl 10 9-21 tablet by ity of mg tablet 00:00: mouth [place] 00 every 6 Medical (six) Branch hours as needed for Nausea and Vomiting (N/V). metoclopram 2020-0 Yes [id number] 10mg Take 1 Univers ghulam HCl 10 9-21 tablet by ity of mg tablet 00:00: mouth [place] 00 every 6 Medical (six) Branch hours as needed for Nausea and Vomiting (N/V). metoclopram 2020-0 Yes [id number] 10mg Take 1 Univers ghulam HCl 10 9-21 tablet by ity of mg tablet 00:00: mouth [place] 00 every 6 Medical (six) Branch hours as needed for Nausea and Vomiting (N/V). metoclopram 2020-0 Yes [id number] 10mg Take 1 Univers ghulam HCl 10 9-21 tablet by ity of mg tablet 00:00: mouth [place] 00 every 6 Medical (six) Branch hours as needed for Nausea and Vomiting (N/V). metoclopram 2020-0 Yes [id number] 10mg Take 1 Univers ghulam HCl 10 9-21 tablet by ity of mg tablet 00:00: mouth [place] 00 every 6 Medical (six) Branch hours as needed for Nausea and Vomiting (N/V). metoclopram 2020-0 Yes [id number] 10mg Take 1 Univers ghulam HCl 10 9-21 tablet by ity of mg tablet 00:00: mouth [place] 00 every 6 Medical (six) Branch hours as needed for Nausea and Vomiting (N/V). metoclopram 2020-0 Yes [id number] 10mg Take 1 Univers ghulam HCl 10 9-21 tablet by ity of mg tablet 00:00: mouth [place] 00 every 6 Medical (six) Branch hours as needed for Nausea and Vomiting (N/V). metoclopram 2020-0 Yes [id number] 10mg Take 1 Univers ghulam HCl 10 9-21 tablet by ity of mg tablet 00:00: mouth [place] 00 every 6 Medical (six) Branch hours as needed for Nausea and Vomiting (N/V). metoclopram 2020-0 Yes [id number] 10mg Take 1 Univers ghulam HCl 10 9-21 tablet by ity of mg tablet 00:00: mouth [place] 00 every 6 Medical (six) Branch hours as needed for Nausea and Vomiting (N/V). metoclopram 2020-0 Yes [id number] 10mg Take 1 Univers ghulam HCl 10 9-21 tablet by ity of mg tablet 00:00: mouth [place] 00 every 6 Medical (six) Branch hours as needed for Nausea and Vomiting (N/V). metoclopram 2020-0 Yes [id number] 10mg Take 1 Univers ghulam HCl 10 9-21 tablet by ity of mg tablet 00:00: mouth [place] 00 every 6 Medical (six) Branch hours as needed for Nausea and Vomiting (N/V). metoclopram 2020-0 Yes [id number] 10mg Take 1 Univers ghulam HCl 10 9-21 tablet by ity of mg tablet 00:00: mouth [place] 00 every 6 Medical (six) Branch hours as needed for Nausea and Vomiting (N/V). metoclopram 2020-0 Yes [id number] 10mg Take 1 Univers ghulam HCl 10 9-21 tablet by ity of mg tablet 00:00: mouth [place] 00 every 6 Medical (six) Branch hours as needed for Nausea and Vomiting (N/V). metoclopram 2020-0 Yes [id number] 10mg Take 1 Univers ghulam HCl 10 9-21 tablet by ity of mg tablet 00:00: mouth [place] 00 every 6 Medical (six) Branch hours as needed for Nausea and Vomiting (N/V). metoclopram 2020-0 Yes [id number] 10mg Take 1 Univers ghulam HCl 10 9-21 tablet by ity of mg tablet 00:00: mouth [place] 00 every 6 Medical (six) Branch hours as needed for Nausea and Vomiting (N/V). metoclopram 2020-0 Yes [id number] 10mg Take 1 Univers ghulam HCl 10 9-21 tablet by ity of mg tablet 00:00: mouth [place] 00 every 6 Medical (six) Branch hours as needed for Nausea and Vomiting (N/V). metoclopram 2020-0 Yes [id number] 10mg Take 1 Univers ghulam HCl 10 9-21 tablet by ity of mg tablet 00:00: mouth [place] 00 every 6 Medical (six) Branch hours as needed for Nausea and Vomiting (N/V). metoclopram 2020-0 Yes [id number] 10mg Take 1 Univers ghulam HCl 10 9-21 tablet by ity of mg tablet 00:00: mouth [place] 00 every 6 Medical (six) Branch hours as needed for Nausea and Vomiting (N/V). metoclopram 2020-0 Yes [id number] 10mg Take 1 Univers ghulam HCl 10 9-21 tablet by ity of mg tablet 00:00: mouth [place] 00 every 6 Medical (six) Branch hours as needed for Nausea and Vomiting (N/V). Immunizations Ordered Filled Immunization Date Status Comments [facility] e Immunization Name Name [facility] 2020-09-15 Completed University of 00:00:00 [facility] 2020-09-15 Completed University of 00:00:00 [facility] HPV9 2020-09-15 Completed University of 00:00:00 [facility] 2020-09-15 Completed University of 00:00:00 [facility] HPV9 2020-09-15 Completed [facility] 00:[facility]:00 [facility] [facility] HPV9 2020-09-15 Completed [facility] 00:00:00 [facility] 2020-09-15 Completed [facility] 00:00:00 [facility] 2020-09-15 Completed [facility] 00:00:00 [facility] HPV9 2020-09-15 Completed [facility] 00:00:00 [facility] HPV9 2020-09-15 Completed [facility] 00:00:00 [facility] HPV9 2020-09-15 Completed [facility] 00:00:00 [facility] HPV9 2020-09-15 Completed [facility] of 00:00:00 [facility] HPV9 2020-09-15 Completed [facility] 00:00:00 [facility] 2020-09-15 Completed [facility] 00:00:00 [facility] HPV9 2020-09-15 Completed [facility] 00:00:00 [facility] 2020-08-04 Completed [facility] 00:00:00 [facility] 2020-08-04 Completed [facility] 00:00:00 [facility] HPV9 2020-08-04 Completed [facility] of 00:00:00 [facility] HPV9 2020-08-04 Completed [facility] 00:00:00 [facility] 2020-08-04 Completed [facility] 00:00:00 [facility] 2020-08-04 Completed [facility] 00[facility]00:00 [facility] 2020-08-04 Completed [facility] 00:00:00 [facility] 2020-08-04 Completed [facility] 00:00:00 [facility] 2020-08-04 Completed [facility] 00:00:00 [facility] 2020-08-04 Completed [facility] 00:00:00 [facility] HPV9 2020-08-04 Completed [facility] 00:00:00 [facility] HPV9 2020-08-04 Completed [facility] 00:00:00 [facility] HPV9 2020-08-04 Completed [facility] 00:00:00 [facility] HPV9 2020-08-04 Completed [facility] 00:00:00 [facility] HPV9 2020-08-04 Completed [facility] 00:00:00 [facility] HPV9 2020-08-04 Completed [facility] 00:00:00 [facility] HPV9 2020-08-04 Completed [facility] 00:00:00 [facility] TDAP 2020-03-31 Completed [facility] 00:00:00 [facility] TDAP 2020-03-31 Completed [facility] 00:00:00 [facility] TDAP 2020-03-31 Completed [facility] 00:00:00 [facility] TDAP 2020-03-31 Completed [facility] 00:00:00 [facility] TDAP 2020-03-31 Completed [facility] 00:00:00 [facility] TDAP 2020-03-31 Completed [facility] 00:00:00 [facility] TDAP 2020-03-31 Completed [facility] 00:00:00 [facility] TDAP 2020-03-31 Completed [facility] 00:00:00 [facility] TDAP 2020-03-31 Completed [facility] 00:00:00 [facility] TDAP 2020-03-31 Completed [facility] 00:00:00 [facility] TDAP 2020-03-31 Completed [facility] 00:00:00 [facility] TDAP 2020-03-31 Completed [facility] 00:00:00 [facility] TDAP 2020-03-31 Completed [facility] 00:00:00 [facility] TDAP 2020-03-31 Completed [facility] 00:00:00 [facility] TDAP 2020-03-31 Completed [facility] 00:00:00 [facility] TDAP 2020-03-31 Completed [facility] 00:00:00 [facility] TDAP 2020-03-31 Completed [facility] 00:00:00 [facility] TDAP 2020-03-31 Completed [facility] 00:00:00 [facility] TDAP 2020-03-31 Completed [facility] 00:00:00 [facility] TDAP 2020-03-31 Completed [facility] 00:00:00 [facility] TDAP 2020-03-31 Completed [facility] 00:00:00 [facility] TDAP 2020-03-31 Completed [facility] 00:00:00 [facility] TDAP 2020-03-31 Completed [facility] 00:00:00 [facility] TDAP 2020-03-31 Completed [facility] 00:00:00 [facility] TDAP 2020-03-31 Completed [facility] 00:00:00 [facility] TDAP 2020-03-31 Completed [facility] 00:00:00 [facility] TDAP 2020-03-31 Completed [facility] 00:00:00 [facility] TDAP 2020-03-31 Completed [facility] 00:00:00 [facility] TDAP 2020-03-31 Completed [facility] 00:00:00 [facility] TDAP 2020-03-31 Completed [facility] 00:00:00 [facility] TDAP 2020-03-31 Completed [facility] 00:00:00 [facility] TDAP 2020-03-31 Completed [facility] 00:00:00 [facility] Influenza Virus 2019-11-26 Completed Universit y of [...] y of Vaccine Quad .5 mL 00:00:00 [facility] 6+ [facility] Vital Signs Vital Name Observation Time Observation Value Comments Source Systolic blood 2021-01-25 20:12:00 113 mm[Hg] Univer sity of pressure [facility] Diastolic blood 2021-01-25 20:12:00 77 mm[Hg] Unive rsity of pressure [facility] Heart rate 2021-01-25 20:12:00 105 /min Universi ty of [facility] Body temperature 2021-01-25 20:12:00 36.67 Karla Univ ersity of [facility] Respiratory rate 2021-01-25 20:12:00 20 /min Univ ersity of [facility] Body height 2021-01-25 20:12:00 154.9 cm Universi ty of [facility] Body weight 2021-01-25 20:12:00 85.684 kg Universi ty of [facility] BMI 2021-01-25 20:12:00 35.69 kg/m2 Universi ty of [facility] Oxygen saturation in 2021-01-25 20:12:00 100 /min [facility] Arterial blood by [facility] Pulse oximetry Branch Systolic blood 2020-12-08 20:15:00 137 mm[Hg] Univer sity of pressure [facility] Diastolic blood 2020-12-08 20:15:00 90 mm[Hg] Unive rsity of pressure [facility] Heart rate 2020-12-08 20:13:00 71 /min Universi ty of [facility] Body temperature 2020-12-08 20:13:00 37 Karla Univ ersity of [facility] Respiratory rate 2020-12-08 20:13:00 16 /min Univ ersity of [facility] Body height 2020-12-08 20:13:00 154.9 cm Universi ty of [facility] Body weight 2020-12-08 20:13:00 81.92 kg Universi ty of [facility] BMI 2020-12-08 20:13:00 34.12 kg/m2 Universi ty of [facility] Systolic blood 2020-09-15 20:58:00 119 mm[Hg] Univer sity of pressure [facility] Diastolic blood 2020-09-15 20:58:00 75 mm[Hg] Unive rsity of pressure [facility] Heart rate 2020-09-15 20:58:00 76 /min Universi ty of [facility] Body temperature 2020-09-15 20:58:00 36.56 Karla Univ ersity of [facility] Respiratory rate 2020-09-15 20:58:00 16 /min Univ ersity of [facility] Body height 2020-09-15 20:58:00 154.9 cm Universi ty of [facility] Body weight 2020-09-15 20:58:00 80.105 kg Universi ty of [facility] BMI 2020-09-15 20:58:00 33.37 kg/m2 [facility] ty of [facility] Systolic blood 2020-08-04 20:35:00 127 mm[Hg] Univer sity of pressure [facility] Diastolic blood 2020-08-04 20:35:00 89 mm[Hg] Unive rsity of pressure [facility] Heart rate 2020-08-04 20:35:00 56 /min Universi ty of [facility] Body temperature 2020-08-04 20:35:00 37 Karla Univ ersity of [facility] Respiratory rate 2020-08-04 20:35:00 16 /min Univ ersity of [facility] Body height 2020-08-04 20:35:00 152.4 cm Universi ty of [facility] Body weight 2020-08-04 20:35:00 79.198 kg Universi ty of [facility] BMI 2020-08-04 20:35:00 34.10 kg/m2 [facility]i ty of [facility] Systolic blood 2020-07-14 18:15:00 135 mm[Hg] Univer sity of pressure [facility] Diastolic blood 2020-07-14 18:15:00 88 mm[Hg] Unive rsity of pressure [facility] Heart rate 2020-07-14 18:15:00 65 /min Universi ty of [facility] Body temperature 2020-07-14 18:15:00 36.89 Karla Univ ersity of [facility] Respiratory rate 2020-07-14 18:15:00 16 /min Univ ersity of [facility] Body height 2020-07-14 18:15:00 152.4 cm Universi ty of [facility] Body weight 2020-07-14 18:15:00 76.794 kg [facility]i ty of [facility] BMI 2020-07-14 18:15:00 33.06 kg/m2 [facility] of [facility] Systolic blood 2020-06-30 18:25:00 122 mm[Hg] Univer sity of pressure [facility] Diastolic blood 2020-06-30 18:25:00 75 mm[Hg] Unive rsity of pressure [facility] Heart rate 2020-06-30 18:25:00 77 /min Universi ty of [facility] Body temperature 2020-06-30 18:25:00 36.72 Karla Univ ersity of [facility] Respiratory rate 2020-06-30 18:25:00 16 /min Univ ersity of [facility] Body height 2020-06-30 18:25:00 152.4 cm Universi ty of [facility] Body weight 2020-06-30 18:25:00 95.709 kg Universi ty of [facility] BMI 2020-06-30 18:25:00 41.21 kg/m2 Universi ty of [facility] Systolic blood 2020-06-24 00:30:00 115 mm[Hg] Univer sity of pressure [facility] Diastolic blood 2020-06-24 00:30:00 62 mm[Hg] Unive rsity of pressure [facility] Heart rate 2020-06-24 00:30:00 89 /min Universi ty of [facility] Body temperature 2020-06-24 00:30:00 37.06 Karla Univ ersity of [facility] Respiratory rate 2020-06-24 00:30:00 18 /min Univ ersity of [facility] Oxygen saturation in 2020-06-24 00:30:00 97 /min [facility] Arterial blood by [facility] Pulse oximetry Branch Body height 2020-06-22 13:13:00 154.9 cm Universi ty of [facility] Body weight 2020-06-22 13:13:00 95.754 kg Universi ty of [facility] BMI 2020-06-22 13:13:00 39.91 kg/m2 Universi ty of [facility] Systolic blood 2020-06-19 21:41:00 138 mm[Hg] Univer sity of pressure [facility] Diastolic blood 2020-06-19 21:41:00 72 mm[Hg] Unive rsity of pressure [facility] Heart rate 2020-06-19 21:21:00 105 /min Universi ty of [facility] Body temperature 2020-06-19 21:19:00 36.94 Karla Univ ersity of [facility] Respiratory rate 2020-06-19 21:19:00 16 /min Univ ersity of [facility] Body height 2020-06-19 21:19:00 154.9 cm Universi ty of [facility] Body weight 2020-06-19 21:19:00 94.036 kg Universi ty of [facility] BMI 2020-06-19 21:19:00 39.17 kg/m2 [facility]i ty of [facility] Systolic blood 2020-05-27 19:30:00 134 mm[Hg] Univer sity of pressure [facility] Diastolic blood 2020-05-27 19:30:00 80 mm[Hg] Unive rsity of pressure [facility] Heart rate 2020-05-27 19:29:00 82 /min Universi ty of [facility] Body temperature 2020-05-27 19:29:00 36.67 Karla Univ ersity of [facility] Respiratory rate 2020-05-27 19:29:00 16 /min Univ ersity of [facility] Body height 2020-05-27 19:29:00 154.9 cm Universi ty of [facility] Body weight 2020-05-27 19:29:00 90.379 kg Universi ty of [facility] BMI 2020-05-27 19:29:00 37.65 kg/m2 [facility]i ty of [facility] Systolic blood 2020-05-20 20:26:00 133 mm[Hg] Univer sity of pressure [facility] Diastolic blood 2020-05-20 20:26:00 89 mm[Hg] Unive rsity of pressure [facility] Heart rate 2020-05-20 20:26:00 74 /min Universi ty of [facility] Body temperature 2020-05-20 20:26:00 36.67 Karla Univ ersity of [facility] Respiratory rate 2020-05-20 20:26:00 16 /min Univ ersity of [facility] Body height 2020-05-20 20:26:00 160 cm [facility]i ty of [facility] Body weight 2020-05-20 20:26:00 90.464 kg [facility]i ty of [facility] BMI 2020-05-20 20:26:00 35.33 kg/m2 [facility] ty of [facility] Systolic blood 2020-04-30 21:03:00 138 mm[Hg] Univer sity of pressure [facility] Diastolic blood 2020-04-30 21:03:00 78 mm[Hg] Unive rsity of pressure [facility] Heart rate 2020-04-30 21:02:00 87 /min Universi ty of [facility] Body temperature 2020-04-30 21:02:00 36.89 Karla Univ ersity of [facility] Respiratory rate 2020-04-30 21:02:00 16 /min Univ ersity of [facility] Body height 2020-04-30 21:02:00 160 cm Universi ty of [facility] Body weight 2020-04-30 21:02:00 89.926 kg Universi ty of [facility] BMI 2020-04-30 21:02:00 35.12 kg/m2 [facility]i ty of [facility] Systolic blood 2020-04-24 20:00:00 135 mm[Hg] Univer sity of pressure [facility] Diastolic blood 2020-04-24 20:00:00 86 mm[Hg] Unive rsity of pressure [facility] Heart rate 2020-04-24 20:00:00 83 /min Universi ty of [facility] Respiratory rate 2020-04-24 20:00:00 18 /min Univ ersity of [facility] Oxygen saturation in 2020-04-24 20:00:00 99 /min University of Arterial blood by [facility] Pulse oximetry Branch Body temperature 2020-04-24 19:23:00 37.06 Karla Univ ersity of [facility] Body weight 2020-04-24 19:23:00 89.812 kg Universi ty of [facility] BMI 2020-04-24 19:23:00 37.41 kg/m2 Universi ty of [facility] Systolic blood 2020-04-16 19:49:00 129 mm[Hg] Univer sity of pressure [facility] Diastolic blood 2020-04-16 19:49:00 81 mm[Hg] Unive rsity of pressure [facility] Heart rate 2020-04-16 19:49:00 77 /min Universi ty of [facility] Body temperature 2020-04-16 19:49:00 36.61 Karla Univ ersity of [facility] Respiratory rate 2020-04-16 19:49:00 16 /min Univ ersity of [facility] Body height 2020-04-16 19:49:00 154.9 cm Universi ty of [facility] Body weight 2020-04-16 19:49:00 90.22 kg Universi ty of [facility] BMI 2020-04-16 19:49:00 37.58 kg/m2 Universi ty of [facility] Systolic blood 2020-03-17 16:46:00 105 mm[Hg] Univer sity of pressure [facility] Diastolic blood 2020-03-17 16:46:00 66 mm[Hg] Unive rsity of pressure [facility] Heart rate 2020-03-17 16:46:00 78 /min Universi ty of [facility] Body temperature 2020-03-17 16:46:00 36.72 Karla Univ ersity of [facility] Respiratory rate 2020-03-17 16:46:00 16 /min Univ ersity of [facility] Body height 2020-03-17 16:46:00 154.9 cm Universi ty of [facility] Body weight 2020-03-17 16:46:00 88.055 kg Universi ty of [facility] BMI 2020-03-17 16:46:00 36.68 kg/m2 [facility]i ty of [facility] Systolic blood 2020-02-25 14:44:00 127 mm[Hg] Univer sity of pressure [facility] Diastolic blood 2020-02-25 14:44:00 74 mm[Hg] Unive rsity of pressure [facility] Heart rate 2020-02-25 14:44:00 79 /min Universi ty of [facility] Body temperature 2020-02-25 14:44:00 36.44 Karla Univ ersity of [facility] Respiratory rate 2020-02-25 14:44:00 16 /min Univ ersity of [facility] Body height 2020-02-25 14:44:00 154.9 cm Universi ty of [facility] Body weight 2020-02-25 14:44:00 86.456 kg [facility]i ty of [facility] BMI 2020-02-25 14:44:00 36.01 kg/m2 [facility]i ty of [facility] Systolic blood 2020-01-28 15:46:00 98 mm[Hg] Univer sity of pressure [facility] Diastolic blood 2020-01-28 15:46:00 53 mm[Hg] Unive rsity of pressure [facility] Heart rate 2020-01-28 15:46:00 61 /min Universi ty of [facility] Body temperature 2020-01-28 15:46:00 36.61 Karla Univ ersity of [facility] Respiratory rate 2020-01-28 15:46:00 16 /min Univ ersity of [facility] Body height 2020-01-28 15:46:00 154.9 cm Universi ty of [facility] Body weight 2020-01-28 15:46:00 86.955 kg Universi ty of [facility] BMI 2020-01-28 15:46:00 36.22 kg/m2 Universi ty of [facility] Systolic blood 2019-12-31 19:41:00 111 mm[Hg] Univer sity of pressure [facility] Diastolic blood 2019-12-31 19:41:00 58 mm[Hg] Unive rsity of pressure [facility] Heart rate 2019-12-31 19:41:00 53 /min Universi ty of [facility] Body temperature 2019-12-31 19:41:00 37.28 Karla Univ ersity of [facility] Respiratory rate 2019-12-31 19:41:00 16 /min Univ ersity of [facility] Body height 2019-12-31 19:41:00 154.9 cm Universi ty of [facility] Body weight 2019-12-31 19:41:00 87 kg [facility]i ty of [facility] BMI 2019-12-31 19:41:00 36.24 kg/m2 [facility]i ty of [facility] Systolic blood 2019-11-26 14:14:00 125 mm[Hg] Univer sity of pressure [facility] Diastolic blood 2019-11-26 14:14:00 60 mm[Hg] Unive rsity of pressure [facility] Heart rate 2019-11-26 14:14:00 63 /min Universi ty of [facility] Body temperature 2019-11-26 14:14:00 37 Karla Univ ersity of [facility] Respiratory rate 2019-11-26 14:14:00 16 /min Univ ersity of [facility] Body height 2019-11-26 14:14:00 154.9 cm Universi ty of [facility] Body weight 2019-11-26 14:14:00 85.957 kg [facility] BMI 2019-11-26 14:14:00 35.81 kg/m2 [facility] Systolic blood 2019-11-12 22:15:00 112 mm[Hg] [facility] Diastolic blood 2019-11-12 22:15:00 65 mm[Hg] Unive [facility] Heart rate 2019-11-12 22:15:00 56 /min [facility] Respiratory rate 2019-11-12 22:15:00 18 /min [facility] Oxygen saturation in 2019-11-12 22:15:00 100 /min [facility] Arterial blood by [facility] Pulse oximetry [place] Body temperature 2019-11-12 20:20:00 37.11 Karla [facility] Body height 2019-11-12 20:20:00 154.9 cm [facility] Body weight 2019-11-12 20:20:00 81.647 kg [facility] BMI 2019-11-12 20:20:00 34.01 kg/m2 [facility] Procedures Procedure Date / Time Performing Clinician Source Performed POCT GRP A STREP 2021-01-25 20:32:00 Tabitha Caraballo [facility] (MOLECULAR) [facility] ASSIGNMENT OF BENEFITS 2020-12-08 19:59:42 Doctor Unassigned, No [facility] Name [facility] GARDASIL 9 (HPV 9V) 2020-09-15 21:21:22 Danish Monahan [facility] GARDASIL 9 (HPV 9V) 2020-08-04 20:59:38 Myriam Murray [facility] CBC WITH DIFF 2020-06-24 11:40:00 Judit To [facility] SECTION 2020-06-24 01:43:00 Vania [facility] URINALYSIS 2020-06-23 23:59:00 Abbey Kemp [facility] PROTEIN CREAT RATIO 2020-06-23 23:59:00 Abbey Kemp [facility] URINE RANDOM [facility] SGOT (ASPARTATE AMINO 2020-06-23 23:51:00 Abbey Kemp [facility] TRANSFER) Medical Branch CREATININE 2020-06-23 23:51:00 Viridiana [facility] ALANINE AMINO 2020-06-23 23:51:00 Viridiana [facility] TRANSFERASE(SGPT Medical Branch LACTATE DEHYDROGENASE 2020-06-23 23:51:00 Abbey Kemp [facility] URIC ACID 2020-06-23 23:51:00 Abbey Kemp [facility] CBC WITH DIFF 2020-06-23 23:51:00 Viridiana [facility] CENTRAL NEURAXIAL BLOCK 2020-06-23 05:10:[address] [facility] URINALYSIS 2020-06-22 14:54:00 Marah Blair [facility] PROTEIN CREAT RATIO 2020-06-22 14:54:00 Marah Blair [facility] URINE RANDOM Medical Branch SGOT (ASPARTATE AMINO 2020-06-22 14:53:00 Marah Blair [facility]) Medical Branch CREATININE 2020-06-22 14:53:00 Marah Blair [facility] ALANINE AMINO 2020-06-22 14:53:00 Marah Blair [facility] TRANSFERASE(SGPT Medical Branch LACTATE DEHYDROGENASE 2020-06-22 14:53:00 Marah Blair [facility] URIC ACID 2020-06-22 14:53:00 Marah Blair [facility] CBC WITH DIFF 2020-06-22 14:53:00 Marah Blair [facility] HEPATITIS B SURFACE 2020-06-22 14:53:00 Marah Blair [facility] ANTIGEN [facility] HIV 1/2 AG-AB WITH 2020-06-22 14:53:00 Marah Blair [facility] REFLEX [facility] GALV ONLY - SYPHILIS 2020-06-22 14:53:00 Marah Blair [facility] IGG/IGM Medical Branch HB ABO GROUPING 2020-06-22 14:30:00 Rossy Marah [place] [facility] RHO (D) IMMUNE GLOBULIN 2020-06-22 14:30:00 Danae Torres [facility] COVID-19 (ID NOW RAPID 2020-06-22 13:08:00 Pricila Osorio [facility] TESTING) [facility] POCT URINALYSIS W/O 2020-06-19 21:24:00 Candy Carvalho [facility] SPECIFIC GRAVITY [facility] POCT URINALYSIS 2020-05-27 19:30:00 Danish Monahan [facility] POCT URINALYSIS 2020-05-20 20:27:00 Danish Monahan [facility] CONSENT/REFUSAL FOR 2020-04-24 19:16:07 Doctor Unassigned, No Un [facility] DIAGNOSIS AND TREATMENT Name [facility] POCT URINALYSIS 2020-04-16 19:50:00 Danish Moanhan [facility] POCT URINALYSIS 2020-03-17 16:54:00 Danish Monahan [facility] POCT URINALYSIS 2020-02-25 00:00:00 Danish Monahan [facility] POCT URINALYSIS 2020-01-28 00:00:00 Danish Monahan [facility] POCT URINALYSIS 2019-12-31 00:00:00 Danish Monahan [facility] GLUCOSE 1 HOUR POST 2019-11-26 15:48:00 Danish Monahan [facility] CBC WITH DIFF 2019-11-26 15:48:00 Danish Monahan [facility] RUBELLA SCREEN IGG 2019-11-26 15:48:00 Danish Monahan sity [facility] VZV ANTIBODY SCREEN 2019-11-26 15:48:00 Danish Monahan [facility] HEPATITIS B SURFACE 2019-11-26 15:48:00 Danish Monahan [facility] ANTIGEN [facility] HIV 1/2 AG-AB WITH 2019-11-26 15:48:00 Danish Monahan sity [facility] REFLEX [facility] GALV ONLY - SYPHILIS 2019-11-26 15:48:00 Danish Monahan [facility] SARS-COV-2 IGG 2019-11-26 15:48:00 Danish Monahan [facility] HB ABO GROUPING 2019-11-26 15:40:00 Danish [facility]ahan [facility] URINE CULTURE 2019-11-26 15:29:00 Danish Monahan [facility] GC & CHLAMYDIA AMPLIFIED 2019-11-26 15:29:00 Danish Monahan [facility] LAB ONLY PAP 2019-11-26 15:29:00 Danish Monahan [facility] SMEAR-LIQUID BASED Medical Branc h TRICHOMONAS AMPLIFIED 2019-11-26 15:29:00 Danish [facility] SME[facility]QU[facility] 2019-11-26 15:29:00 Danish Monahan [facility] BASED- Medical Branch FLU VACC ([id number]), 6+ 2019-11-26 14:40:08 Danish Monahan [facility] MONTHS, IM, QUAD Medical Branch ASSIGNMENT OF BENEFITS 2019-11-26 13:44:38 Doctor Unassigned, No [facility] Name [facility] POCT TEST 2019-11-26 00:00:00 Danish Monahan [facility] POCT URINALYSIS W/O 2019-11-26 00:00:00 Danish Monahan [facility] SPECIFIC GRAVITY [facility] LIPASE 2019-11-12 20:52:00 sOvaldo Camacho [facility] COMP. METABOLIC PANEL 2019-11-12 20:52:00 [facility]do [id number] TOTAL BETA HCG ASSAY 2019-11-12 20:52:00 [facility] WITH DIFF 2019-11-12 20:52:00 Osvaldo Camacho [facility] URINALYSIS 2019-11-12 20:52:00 Osvaldo Camacho [facility] POCT TEST 2019-11-12 20:51:00 Osvaldo Camacho [facility] NOTICE OF PRIVACY 2019-11-12 20:09:02 Doctor Unassigned, No [facility] PRACTICES Name [facility] Encounters Start End Encounter Admission Attending Care Care Encounter Source Date/Time Date/Time Type Type Clinicians Facility Department ID 2020-12-21 Outpatient [facility] [id number] Univers 16:33:05 ity [facility] 2020-12-21 Emergency [facility] [id number] Univers 03:14:37 ity [facility] 2021-03-02 2021-03-02 Outpatient R [facility] [id number] Univers 15:30:00 15:30:00 [id number] ity [facility] 2021-03-02 2021-03-02 Outpatient R [facility] [id number] Univers 15:30:00 15:30:00 ity [facility] 2021-02-09 2021-02-09 Outpatient R [facility] [id number] Univers 15:00:00 15:00:00 [id number] ity [facility] 2021-02-09 2021-02-09 [facility] [id number] Univers 15:00:00 15:00:00 ROSHUNDA ity o f [facility] 2021-01-26 2021-01-26 [facility] 1.2.840.114 [id number] Univers 00:00:00 00:00:00 Exhibia 350.1.13.10 it y of [place] 4.2.7.2.686 [place] BRIAN?BLEA [phone] [address] MEDICAL OFFICE BUILDING 2021-01-25 2021-01-25 Urgent Adelita [facility] 1.2.840.114 [id number] Univers 13:56:27 14:16:27 Care [facility] 350.1.13.10 it y of [place] 4.2.7.2.686 [place] BRIAN?BLEA [phone] Id zak [address] MEDICAL OFFICE [facility] 2021-01-25 2021-01-25 Outpatient R [facility] [id number] Univers 14:00:00 14:00:00 [id number] ity [facility] 2021-01-25 2021-01-25 Outpatient [facility] [id number] Univers 14:00:00 14:00:00 ALPHONSO ity [facility] 2021-01-25 2021-01-25 Letter Provider, [facility] 1.2.201.388 [id number] Univers 00:00:00 00:00:00 (Out) [facility] 350.1.13.10 it y of Urgent Care [place] 4.2.7.2.686 [place] BRIAN?BLEA [phone] [address] MEDICAL OFFICE [facility] 2020-12-08 2020-12-08 [facility] [place] [facility] 1.2 .840.114 [id number] Univers 15:00:16 15:26:04 Visit Danish Monahan R 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 350.1.13.10 ity of [facility] 4.2.7.2.686 [place] MATERNAL [phone] Med ical & CHILD [address] [place] [address] 2020-12-08 2020-12-08 Outpatient R [facility] [id number] Univers 15:00:00 15:00:00 [id number] ity of [facility] 2020-12-08 2020-12-08 Outpatient R [facility] [id number] Univers 15:00:00 15:00:00 ity [facility] 2020-12-08 2020-12-08 Orders Doctor SOLORZANO 1.2.840.114 [id number] Univers 00:00:00 00:00:00 Only Unassigned, JONNY 350.1.13.10 ity of [place] [facility] 4.2.7.2.686 [place] as [id number] [address] 2020-11-03 2020-11-03 Letter RASHAD Carrizales 1.2.840.114 [id number] Univers 00:00:00 00:00:00 (Out) Kayla Torres JONNY 350.1.13.10 it y of [facility] 4.2.7.2.686 [place] as [phone] [address] 2020-11-01 2020-11-01 Laboratory Only, Ang Db Test [facility] 1.2.8 40.114 [id number] Univers 16:56:39 17:06:39 Only [facility] 350.1.13.10 ity [facility] 4.2.7.2.686 [place] Brian?Blea [phone] [address] Medical Office Building 2020-11-01 2020-11-01 Outpatient R [facility] [id number] Univers 16:50:00 16:50:00 [id number] ity [facility] 2020-11-01 2020-11-01 Outpatient R [facility] [id number] Univers 16:50:00 16:50:00 ity [facility] 2020-10-08 2020-10-08 Case Hero [facility] 1.2.840.114 [id number] Univers 00:00:00 00:00:00 Management Danish Carr 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 350.1.13.10 ity of [facility] 4.2.7.2.686 [place] MATERNAL [phone] Med ical & CHILD [address] [place] [address] 2020-10-08 2020-10-08 Telephone Hero [facility] 1.2.364.509 [id number] Univers 00:00:00 00:00:00 Danish Carr 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 350.1.13.10 ity of [facility] 4.2.7.2.686 [place] MATERNAL [phone] Med ical & CHILD [address] [place] [address] 2020-10-07 2020-10-07 Patient Doctor [facility] 1.2.840.114 [id number] Univers 00:00:00 00:00:00 Secure Msg Unassigned, 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 350.1.13.10 ity of [place] [facility] 4.2.7.2.686 [place] MATERNAL [phone] Med ical & CHILD [address] [place] [address] 2020-09-15 2020-09-15 Nurse Visit, Ang-Rmchp Nurse [facility] 1.2 .840.114 [id number] Univers 15:41:55 16:16:26 Visit João Monahandiazdona R 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 350.1.13.10 ity of [facility] 4.2.7.2.686 [place] MATERNAL [phone] [facility] & [address] 2020-09-15 2020-09-15 Outpatient R [facility] [id number] Univers 15:30:00 15:30:00 [id number] ity [facility] 2020-09-15 2020-09-15 Outpatient R [facility] [id number] Univers 15:30:00 15:30:00 ity [facility] 2020-09-11 2020-09-11 Outpatient R [facility] [id number] Univers 15:30:00 15:30:00 [id number] ity [facility] 2020-09-11 2020-09-11 Outpatient R [facility] [id number] Univers 15:30:00 15:30:00 ity [facility] 2020-08-04 2020-08-04 Office Hero [facility] 1.2.840.114 [id number] Univers 15:01:43 16:06:53 Visit Michelledona Carr 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 350.1.13.10 ity of [facility] 4.2.7.2.686 [place]ERNAL [id number] [address] 2020-08-04 2020-08-04 Outpatient R HERO [facility] [id number] Univers 15:00:00 15:00:00 DANISH [id number] ity o f [facility] 2020-08-04 2020-08-04 [facility] [id number] Univers 15:00:00 15:00:00 MIGUELINABRYAN ity o f [facility] 2020-07-14 2020-07-14 Routine Akinsam [facility] 1.2.098.318 [id number] Univers 12:53:45 13:33:26 Candy Gunderson 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 350.1.13.10 ity of Visit REGIONAL 4.2.7.2.686 [place] MATERNAL [phone] [facility] ical & CHILD [address] [place] [address] 2020-07-14 2020-07-14 Outpatient R [facility] [id number] Univers 12:45:00 12:45:00 CANDY [id number] ity o f [facility] 2020-07-14 2020-07-14 Outpatient R [facility] [id number] Univers 12:45:00 12:45:00 CANDY ity o f [facility] 2020-06-30 2020-06-30 Outpatient R [facility] [id number] Univers 13:30:00 13:30:00 [id number] ity of [facility] 2020-06-30 2020-06-30 Outpatient R [facility] [id number] Univers 13:30:00 13:30:00 ity [facility] 2020-06-30 2020-06-30 Nurse Visit, [facility]-Rm[facility]p Nurse [facility] 1.2 .840.114 [id number] Univers 13:23:49 13:23:56 Visit Danish Monahan Lilly 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 350.1.13.10 ity of REGIONAL 4.2.7.2.686 [place] MATERNAL [phone] [facility] [address] [place] [address] 2020-06-22 2020-06-23 Anesthesia Jesse Dewey 1.2. 840.114 [id number] Univers 23:31:00 22:20:00 Event Ronald Jean 350.1.13.10 it[place] of [place] [id number] [address] 2020-06-23 2020-06-23 Surgery RASHAD Westfall 1.2.840.114 [id number] Univers 20:15:00 22:12:00 Vania FULLER 350.1.13.10 i ty of [place] [id number] [address] 2020-06-19 2020-06-19 Routine [facility] 1.2.408.201 [id number] Univers 16:13:07 16:44:21 Candy Gunderson 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 350.1.13.10 ity of Visit [facility] 4.2.7.2.686 [place] MATERNAL [phone] [facility] & [address] 2020-06-19 2020-06-19 Out[facility] [id number] Univers 16:00:00 16:00:00 CANDY [id number] ity o [facility] 2020-06-19 2020-06-19 Outpatient R [facility] [id number] Univers 16:00:00 16:00:00 CANDY ity o [facility] 2020-06-18 2020-06-18 Telephone [facility] 1.2.189.111 [id number] Univers 00:00:00 00:00:00 Miguelinaselin Carr 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 350.1.13.10 ity of [facility] 4.2.7.2.686 [place] MATERNAL [phone] [facility] & [address] 2020-06-16 2020-06-16 Outpatient Lilly MONAHAN [facility] [id number] Univers 14:45:00 14:45:00 ROSANGELITONDDona [id number] ity o [facility] 2020-06-16 2020-06-16 Outpatient Lilly [facility] [id number] Univers 14:45:00 14:45:00 ROSNDA ity o [facility] 2020-06-11 2020-06-11 Nurse RASHAD Milligan 1.2.840.114 [id number] Univers 00:00:00 00:00:00 Triage Cece FULLER 350.1.13.10 i ty of [facility] 4.2.7.2.686 [place] [id number] [facility] [address] 2020-06-09 2020-06-09 Outpatient Lilly [facility] [id number] Univers 12:45:00 12:45:00 ROSHUNDA [id number] ity o [facility] 2020-06-09 2020-06-09 Outpatient R HERO [facility] [id number] Univers 12:45:00 12:45:00 ROSNDA itmikael o [facility] 2020-06-03 2020-06-03 Outpatient R HERO [facility] [id number] Univers 09:45:00 09:45:00 ROSNDA [id number] mikael o [facility] 2020-06-03 2020-06-03 Outpatient R HERO [facility] [id number] Univers 09:45:00 09:45:00 MIGUELINANDA itmikael o [facility] 2020-05-27 2020-05-27 Outpatient R HERO [facility] [id number] -[id number] Univers 15:00:00 15:00:00 DANISH [id number] mikael o [facility] 2020-05-27 2020-05-27 Outpatient Lilly MONAHAN [facility] [id number] Univers 15:00:00 15:00:00 MIGUELINANDA mikael o [facility] 2020-05-27 2020-05-27 [facility] 1.2.840.114 [id number] Univers 14:23:28 14:54:43 Roshunda R 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 350.1.13.10 ity of Visit REGIONAL 4.2.7.2.686 [place] MATERNAL [phone] [facility] [address] [place] [address] 2020-05-20 2020-05-20 [facility] 1.2.840.114 [id number] Univers 15:11:01 15:43:49 Roshunda R 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 350.1.13.10 ity of Visit REGIONAL 4.2.7.2.686 [place] MATERNAL [id number] [facility] & CHILD [address] [place] [address] 2020-05-20 2020-05-20 Outpatient Lilly MONAHAN [facility] [id number] Univers 15:00:00 15:00:00 JOÃONDA [id number] [facility] o [facility] 2020-05-20 2020-05-20 Outpatient R HERO [facility] [id number] Univers 15:00:00 15:00:00 DANISH ricketts [facility] 2020-05-14 2020-05-14 Outpatient Lilly MONAHAN [facility] [id number] Univers 15:00:00 15:00:00 MICHELLEA gosia o [facility] 2020-05-14 2020-05-14 Outpatient Lilly MONAHAN [facility] [id number] -[id number] Univers 15:00:00 15:00:00 MICHELLEDona [id number] itmikael o [facility] 2020-04-30 2020-04-30 [facility] 1.2.840.114 [id number] Univers 14:46:07 15:31:37 Danish R 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 350.1.13.10 ity of Visit [facility] 4.2.7.2.686 [place] MATERNAL [id number] Med ical & CHILD [address] [place] [address] 2020-04-30 2020-04-30 Outpatient Lilly MONAHAN [facility] [id number] Univers 15:00:00 15:00:00 MICHELLEDona [id number] gosia ricketts [facility] 2020-04-30 2020-04-30 Outpatient Lilly MONAHAN [facility] [id number] Univers 15:00:00 15:00:00 DANISH ricketts [facility] 2020-04-24 2020-04-24 Emergency Singer [facility] 1.2.342.187 [id number] Univers 13:24:00 14:53:00 Harpal Melendrez 350.1.13.10 i ty of [place].7.2.[place] [phone] [facility] [address] 2020-04-24 2020-04-24 Orders Doctor RASHAD 1.2.840.114 [id number] Univers 00:00:00 00:00:00 Only Unassigned, JONNY 350.1.13.10 ity of [place] [facility] 4.2.7.2.686 [place] [phone] [facility] [address] 2020-04-16 2020-04-16 [facility]ine [facility] 1.2.840.114 [id number] Univers 13:30:56 13:45:56 Roshunda R 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 350.1.13.10 ity of Visit REGIONAL 4.2.7.2.686 [place] MATERNAL [phone] [facility] [address] 2020-04-16 2020-04-16 Outpatient Lilly MONAHAN [facility] [id number] Univers 13:30:00 13:30:00 ROSHUNDA [id number] ity o [facility] 2020-04-16 2020-04-16 Outpatient Lilly MONAHAN [facility] [id number] Univers 13:30:00 13:30:00 ROSHUNDA ity o [facility] 2020-04-14 2020-04-14 Outpatient Lilly MONAHAN [facility] [id number] Univers 12:45:00 12:45:00 ROSHUNDA [id number] ity o [facility] 2020-04-14 2020-04-14 Outpatient Lilly MONAHAN [facility] [id number] Univers 12:45:00 12:45:00 ROSHUNDA ity o [facility] 2020-03-31 2020-03-31 Outpatient Lilly MONAHAN [facility] [id number] Univers 08:30:00 08:30:00 ROSHUNDA [id number] ity o [facility] 2020-03-31 2020-03-31 Outpatient Lilly [facility] [id number] Univers 08:30:00 08:30:00 ROSHUNDA y o [facility] 2020-03-17 2020-03-17 Routine [facility] 1.2.840.114 [id number] Univers 10:39:26 11:18:04 Roshunda R 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 350.1.13.10 ity of Visit REGIONAL 4.2.7.2.686 [place] MATERNAL [id number] [facility] & [address] 2020-03-17 2020-03-17 Outpatient Lilly [facility] [id number] Univers 11:00:00 11:00:00 ROSHUNDA [id number] ity o [facility] 2020-03-17 2020-03-17 Outpatient R HERO [facility] [id number] Univers 11:00:00 11:00:00 ROSANGELITONDA ity o f [facility] 2020-02-27 2020-02-27 [facility] 1.2.840.114 [id number] Univers 00:00:00 00:00:00 Rosangelitonda R 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 350.1.13.10 ity of REGIONAL 4.2.7.2.686 [place] MATERNAL [phone] Med ical & CHILD [address] [place] [address] 2020-02-26 2020-02-26 Technical Illustrations Map Inker Ultras[facility] 1.2 .840.114 [id number] Univers 13:49:18 15:04:18 Visit [place], Abhishek Higgins 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 350.1.13.10 ity of REGIONAL 4.2.7.2.686 [place] as MATERNAL [phone] Med ical & CHILD [address] [facility] 2020-02-26 2020-02-26 Outpatient P [facility] [id number] Univers 14:00:00 14:00:00 [id number] ity [facility] 2020-02-26 2020-02-26 Outpatient P [facility] [id number] Univers 14:00:00 14:00:00 ity [facility] 2020-02-25 2020-02-25 Routine [facility] 1.2.840.114 [id number] Univers 08:30:53 09:07:35 Rosangelitonda R 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 350.1.13.10 ity of Visit REGIONAL 4.2.7.2.686 [place] MATERNAL [id number] [facility] & CHILD [address] [place] [address] 2020-02-25 2020-02-25 Out[facility] [id number] Univers 08:15:00 08:15:00 MICHELLEA [id number] ity o f [facility] 2020-02-25 2020-02-25 Outpatient Lilly [facility] [id number] Univers 08:15:00 08:15:00 ROSANGELITONDA ity o f [facility] 2020-02-07 2020-02-07 Refill Doctor [facility] 1.2.840.114 [id number] Univers 00:00:00 00:00:00 Unassigned, 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 350.1.13.10 ity of [place] REGIONAL 4.2.7.2.686 [place] MATERNAL [phone] Med ical & CHILD [address] [place] [address] 2020-02-05 2020-02-05 Telephone [facility] 1.2.157.468 [id number] Univers 00:00:00 00:00:00 Rosangelitonda R 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 350.1.13.10 ity of REGIONAL 4.2.7.2.686 [place] MATERNAL [id number] [facility] & CHILD [address] [place] [address] 2020-02-04 2020-02-04 Outpatient R [facility] [id number] Univers 09:30:00 09:30:00 [id number] ity of [facility] 2020-02-04 2020-02-04 Outpatient P [facility] [id number] Univers 09:30:00 09:30:00 ity of [facility] 2020-01-31 2020-01-31 Telephone [facility] 1.2.628.405 [id number] Univers 00:00:00 00:00:00 Joãonda R 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 350.1.13.10 ity of [facility] 4.2.7.2.686 [place] MATERNAL [phone] [facility] & CHILD [address] [place] [address] 2020-01-28 2020-01-28 Outpatient R [facility] [id number] Univers 10:15:00 10:15:00 JOÃONDA ity o f [facility] 2020-01-28 2020-01-28 [facility] [id number] Univers 10:15:00 10:15:00 ROSHUNDA ity o f [facility] 2020-01-28 2020-01-28 Routine [facility] 1.2.840.114 [id number] Univers 09:21:49 09:36:49 Rosangelitonda R 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 350.1.13.10 ity of Visit [facility] 4.2.7.2.686 [place] MATERNAL [phone] Med ical & CHILD 107 [facility] 2020-01-01 2020-01-01 Refill Doctor [facility] 1.2.840.114 [id number] Univers 00:00:00 00:00:00 Unassigned, 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 350.1.13.10 ity of [place] REGIONAL 4.2.7.2.686 [place] as MATERNAL [phone] Med ical & CHILD [address] [place] [address] 2019-12-31 2019-12-31 Routine Hero [facility] 1.2.840.114 [id number] Univers 13:31:08 14:07:59 Danish R 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 350.1.13.10 ity of Visit [facility] 4.2.7.2.686 [place] MATERNAL [phone] [facility] ical & CHILD [address] [place] [address] 2019-12-31 2019-12-31 Technical Illustrations Map Inker Ultrasound, Breezy [facility] 1.2 .840.114 [id number] Univers 12:49:51 14:04:51 Visit Abhishek Fragoso 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 350.1.13.10 ity of [facility] 4.2.7.2.686 [place] MATERNAL [id number] [facility] ical & CHILD [address] [facility] 2019-12-31 2019-12-31 Outpatient R [facility] [id number] Univers 13:00:00 13:00:00 ity of [facility] 2019-12-31 2019-12-31 Outpatient P [facility] [id number] Univers 13:00:00 13:00:00 ity of [facility] 2019-12-31 2019-12-31 Abstract Hero [facility] 1.2.840.114 [id number] Univers 00:00:00 00:00:00 Danish Carr 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 350.1.13.10 ity of [facility] 4.2.7.2.686 [place] MATERNAL [phone] [facility] ical & CHILD [address] [place] [address] 2019-12-24 2019-12-24 Outpatient R HERO [facility] [id number] Univers 09:30:00 09:30:00 DANISH ity o f [facility] 2019-12-24 2019-12-24 Outpatient Lilly [facility] [id number] Univers 09:30:00 09:30:00 ROSANGELITONDA ity o f [facility] 2019-12-03 2019-12-03 Félix [facility] 1.2.139.848 [id number] Univers 00:00:00 00:00:00 Roshunda R 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 350.1.13.10 ity of REGIONAL 4.2.7.2.686 [place] MATERNAL [phone] [facility] ical & CHILD [address] [place] [address] 2019-11-29 2019-11-29 [place] [facility] 1.2.173.943 [id number] Univers 00:00:00 00:00:00 Rosangelitonda R 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 350.1.13.10 ity of REGIONAL 4.2.7.2.686 [place] as MATERNAL [phone] [facility] [address] [place] [address] 2019-11-28 2019-11-28 [place] [facility] 1.2.866.180 [id number] Univers 00:00:00 00:00:00 Roshunda R 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 350.1.13.10 ity of REGIONAL 4.2.7.2.686 [place] as MATERNAL [id number] [facility] & [address] 2019-11-28 2019-11-28 [place] [facility] 1.2.339.585 [id number] Univers 00:00:00 00:00:00 Roshunda R 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 350.1.13.10 ity of REGIONAL 4.2.7.2.686 [place] as MATERNAL [phone] [facility] [address] [place] [address] 2019-11-26 2019-11-26 [facility] 1.2.840.114 [id number] Univers 08:50:17 10:43:51 Roshunda R 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 350.1.13.10 ity of Visit REGIONAL 4.2.7.2.686 [place] as MATERNAL [phone] [facility] [address] [place] [address] 2019-11-26 2019-11-26 Outpatient R HERO, [facility] [id number] Univers 09:00:00 09:00:00 ROSBRYAN ity o f [facility] 2019-11-26 2019-11-26 Orders Doctor RASHAD 1.2.840.114 [id number] Univers 00:00:00 00:00:00 Only Unassigned, JONNY 350.1.13.10 ity of [place] [facility] 4.2.7.2.686 [place] [id number] [facility] [address] 2019-11-12 2019-11-12 Emergency [facility] 1.2.840.114 [id number] Univers 15:23:00 18:55:00 Osvaldo Melendrez 350.1.13.10 ity of [place] 4.2.7.2.686 [facility] [id number] [facility] [address] 2019-11-12 2019-11-12 Emergency X [facility] ERT [id number] Univers 15:10:00 15:10:00 ity of [facility] 2018-08-09 2018-08-09 Emergency [facility] [id number] [place] 20:42:00 20:42:00 Health 2018-08-09 2018-08-09 Emergency [facility] [id number] [place] 14:50:00 14:50:00 Health 2017-11-02 2017-11-02 Emergency [facility] [id number] [place] 13:39:00 13:39:00 [facility] 2016-11-13 2016-11-13 Emergency E [facility] [id number] 12:25:00 12:25:00 [facility] 2012-03-03 2012-03-03 Outpatient [facility] [id number] [place] 07:35:53 07:35:53 Health Results Test Description Test Time Test Comments Results Result Comments Source POCT GRP A STREP (MOLECULAR) 2021-01-25 20:33:00 Test Item Value Reference Range Interpretation Comme nts POCT GP A STREP (test code = negative Negative - Negative 85900-9) LORETTA (test code = LORETTA) accurate development and interpretation of all internal controls Lab Interpretation (test code = Normal 70308-3) [facility]wall[facility] ([facility] IMMUNE [id number] 14:09:43 Test Item Value Reference Range Interpretation Comments RHIG CANDIDATE? No- see comment Patient i s not a (test code = candidate for R [facility]- 5055) Patient is Rh Positive.Perfor med at [facility] Laboratory Services - [facility] Blood [address] [place] [address] 35481Xgoh Free: [phone] A No. [id number] [facility] WITH [id number] 12:22:00 Test Item Value Reference Range Interpretation [...] RDW-SD (test code = 41.1 fL 39.0-49.9 80782-5) RDW-CV (test code = 12.5 % 12.0-15.5 788-0) PLT (test code = See_Comment L [Automated 777-3) message] The system which generated this result transmitted reference range : 166 - 358 10*3/?L. The reference range was not used to interpret this result as normal/abnormal . MPV (test code = 11.2 fL 9.5-12.9 86368-2) NRBC/100 WBC (test See_Comment [Automat ed code = 1847999831) message] The system which generated this result transmitted reference range : 0.0 - 10.0 /100 WBCs. The reference range was not used to interpret this result as normal/abnormal . NRBC x10^3 (test code <0.01 See_Comment [Auto mated = 8097508742) message] The system which generated this result transmitted reference range : 10*3/?L. The reference range was not used to interpret this result as normal/abnormal . GRAN MAT (NEUT) % 88.6 % (test code = 770-8) IMM GRAN % (test code 0.50 % = 4814598471) LYMPH % (test code = 6.4 % 736-9) MONO % (test code = 4.4 % 5905-5) EOS % (test code = 0.0 % 713-8) BASO % (test code = 0.1 % 706-2) GRAN MAT x10^3(ANC) 18.66 10*3/uL 1.88-7.09 H (test code = 1098275166) IMM GRAN x10^3 (test 0.11 10*3/uL 0.00-0.06 H code = 2239914519) LYMPH x10^3 (test 1.34 10*3/uL 1.32-3.29 code = 731-0) MONO x10^3 (test code 0.93 10*3/uL 0.33-0.92 H = 742-7) EOS x10^3 (test code <0.03 0.03-0.39 L = 711-2) BASO x10^3 (test code 0.03 10*3/uL 0.01-0.07 = 704-7) BANDS (test code = MARKED INCREASED A 4937889091) Lab Interpretation Abnormal (test code = 03252-7) [facility]wallProtein CREAT Ratio Urine [id number] 02:14:23 Test Item Value Reference Range Interpretation Comments T. PROT U (test >1000 mg/dL Urine protei n is 1289 code = 2888-6) mg/dL with ex tended dilution. CREAT U (test code 223.7 mg/dL = 2396234765) Protein/Creatinine Unable to calculate Ratio Urine (test because, e ither urine code = 2478250498) total pro tein, urine creatinine, or both are greater than e linearity of e analyzer. [facility]wallLactate Gnizfddfnhawt7058-59-12 00:26:39 Test Item Value Reference Range Interpretation Comments LDH (test code = 1565491206) 546 U/L 300-600 Lab Interpretation (test code = Normal 91868-7) [facility]wallUric Acid [id number] 00:26:23 Test Item Value Reference Range Interpretation Comments URIC ACID (test code = 0805528870) 7.0 mg/dL 2.9-6.0 H Lab Interpretation (test code = Abnormal 64343-8) [facility]wallSerum [id number] 00:26:23 Test Item Value Reference Range Interpretation Comments CREATININE (test code 1.03 mg/dL 0.50-1.04 = 9413401434) eGFR (test code = mL/min/1.73m2 2940998151) LORETTA (test code = LORETTA) Association of [...] or urine or abnormalities in imaging tests). [facility]wallSGOT (Asparate Amino Transfer)2020-06-24 00:26:23 Test Item Value Reference Range Interpretation Comments AST(SGOT) (test code = 9482093529) 24 U/L 13-40 Lab Interpretation (test code = Normal 73942-2) [facility] RockwallAlanine Amino Transferase (SGPT)2020-06-24 00:26:23 Test Item Value Reference Range Interpretation Comments ALTv (test code = 1742-6) 19 U/L 5-35 Lab Interpretation (test code = Normal 74990-2) [facility]wallUrinalysis2021-05-04 00:22:28 Test Item Value Reference Range Interpretation Comments APPEARANCE (test code = Cloudy Clear A 1147186867) COLOR (test code = [place] Yellow A 9177057905) PH (test code = 4.8-8.0 7207619555) SP GRAVITY (test code = 1.003-1.030 7192336234) GLU U QUAL (test code = Normal Normal 4153799078) BLOOD (test code = 3+ Negative A 1496880949) KETONES (test code = Negative Negative 0884172538) PROTEIN (test code = 100 mg/dL Negative A 2887-8) UROBILIN (test code = Normal Normal 8244675875) BILIRUBIN (test code = Negative Negative 0198582086) NITRITE (test code = Negative Negative 7213524892) LEUK ANTWON (test code = 25/uL Negative A 8286050122) RBC/HPF (test code = >182 See_Comment H [Autom ated message] 9828807424) The system [employer] generated this result transmit vilma reference range : 0 - 3 HPF. The refe rence range was not u sed to interpret th is result as normal/abnormal . WBC/HPF (test code = See_Comment H [Autom ated message] 0636183542) The system [employer] generated this result transmit vilma reference range : 0 - 5 HPF. The refe rence range was not u sed to interpret th is result as normal/abnormal . BACTERIA (test code = Negative Negative 3745218447) MUCOUS (test code = Marked Negative LPF A 1602309723) Lab Interpretation (test Abnormal code = 01517-7) [facility]wallCBC with Xsmumqkzzjct5393-41-04 00:18:18 Test Item Value Reference Range Interpretation [...] RDW-SD (test code = 40.3 fL 39.0-49.9 26130-7) RDW-CV (test code = 12.5 % 12.0-15.5 788-0) PLT (test code = See_Comment L [Automated 777-3) message] The system which generated this result transmit vilma reference range : 166 - 358 10*3/ ?L. The reference range was not u sed to interpret th is result as normal/abnormal . MPV (test code = 11.0 fL 9.5-12.9 65113-6) NRBC/100 WBC (test See_Comment [Automat ed code = 5505355412) message] The system which generated this result transmit vilma reference range : 0.0 - 10.0 /100 WBCs. The reference range was not used to interpret this result as normal/abnormal . NRBC x10^3 (test code <0.01 See_Comment [Auto mated = 9648759351) message] The system which generated this result transmit vilma reference range : 10*3/?L. The reference range was not used to interpret this result as normal/abnormal . GRAN MAT (NEUT) % 88.6 % (test code = 770-8) IMM GRAN % (test code 0.40 % = 9915149977) LYMPH % (test code = 6.1 % 736-9) MONO % (test code = 4.6 % 5905-5) EOS % (test code = 0.1 % 713-8) BASO % (test code = 0.2 % 706-2) GRAN MAT x10^3(ANC) 11.73 10*3/uL 1.88-7.09 H (test code = 9418432646) IMM GRAN x10^3 (test 0.05 10*3/uL 0.00-0.06 code = 6093353190) LYMPH x10^3 (test code 0.81 10*3/uL 1.32-3.29 L = 731-0) MONO x10^3 (test code 0.61 10*3/uL 0.33-0.92 = 742-7) EOS x10^3 (test code = <0.03 0.03-0.39 L 711-2) BASO x10^3 (test code <0.03 0.01-0.07 = 704-7) Lab Interpretation Abnormal (test code = 10613-0) [facility] RockwallGALV ONLY - SYPHILIS [id number] 18:40:09 Test Item Value Reference Range Interpretation Comments Syphilis IgG/IgM (test Non-reactive Non-reactive code = 72262-8) LORETTA (test code = LORETTA) Non-reactive - No serologic evidence of T. pallidum infection. Cannot exclude incubating or early syphilis. Submit a second specimen in 2-4 weeks if syphilis is clinically suspected. Equivocal - Further testing to follow. Reactive - Further testing to follow. Lab Interpretation (test Normal code = 51615-8) [facility]wallCentral Neuraxial Ymkkb8714-89-38 05:10:15 Jesse Dewey MD ? ? 06/23/2020 12:11 AM Central Neuraxial Block Performed by: Jesse Dewey MDAuthorized by: Elina Rojo MD Reason for Block: ?OB request, Patient request and Labor analgesiaStaff: ?Resident/SKIN PASS OPERATOR: ?Cholo Urrutia MD patient identified, IV [...] Insertion Depth: ?7.5 Assessment: ?Sensory Level: ?Below P08Hpqtw: ? Patient identified; pre-procedure verification.Patient prepped and draped in standard sterile fashion using betadine x 3Subcutaneous infiltration with 1% Lidocaine LASHAY at 7.5 cm; catheter secured at 12.5 cm with mastisol, tegaderm x2 and 3-inch clear tape.Aspiration test negative x 3Test dose negativePatient tolerated procedure well with no immediate complications Epidural expectations; PCEA explained and fall precautions given.[facility]wallHIV 1/2 AG-AB WITH [id number] 16:41:51 Test Item Value Reference Range Interpretation Comments HIV Negative Negative Semi-quantitative (test code = 25157-2) LORETTA (test code = Non-reactive for HIV-1 LORETTA) antigen and HIV-1/HIV-2 antibodies. ?No laboratory evidence of HIV infection. ?Repeat in 2-4 weeks if acute HIV infection is suspected. [facility] RockwallHepatitis B Surface [id number] 16:32:31 Test Item Value Reference Range Interpretation Comments HBsAg Semi-Quantitative (test code = Negative Negative 5195-3) [facility] RockwallAST (Aspartate Amino Transfer ; SGOT) 2020-06-22 16:00:11 Test Item Value Reference Range Interpretation Comments AST(SGOT) (test code = 4018689611) 33 U/L 13-40 Lab Interpretation (test code = Normal 87124-6) [facility] RockwallALT (Alanine Amino Transeferase ; SGPT) 2020-06-22 16:00:11 Test Item Value Reference Range Interpretation Comments ALTv (test code = 1742-6) 27 U/L 5-35 Lab Interpretation (test code = Normal 63273-2) [facility] [id number] 16:00:11 Test Item Value Reference Range Interpretation Comments CREATININE (test code 0.77 mg/dL 0.50-1.04 = 7234590274) eGFR (test code = mL/min/1.73m2 4993749455) LORETTA (test code = LORETTA) Association of [...] or urine or abnormalities in imaging tests). [facility] RockwallUric Acid [id number] 16:00:11 Test Item Value Reference Range Interpretation Comments URIC ACID (test code = 6736249073) 7.3 mg/dL 2.9-6.0 H Lab Interpretation (test code = Abnormal 06711-4) [facility] RockwallLactate Eayiixqcxfzwm6407-27-71 16:00:10 Test Item Value Reference Range Interpretation Comments LDH (test code = 8618264413) 599 U/L 300-600 Lab Interpretation (test code = Normal 92833-2) [facility] RockwallUrinalysis2021-05-02 15:46:35 Test Item Value Reference Range Interpretation Comments APPEARANCE (test code = Cloudy Clear A 8612835538) COLOR (test code = Yellow Yellow 3105801073) PH (test code = 4.8-8.0 5844952252) SP GRAVITY (test code = 1.003-1.030 0836235551) GLU U QUAL (test code = Normal Normal 6192025540) BLOOD (test code = Negative Negative 6898938336) KETONES (test code = Negative Negative 2027126245) PROTEIN (test code = Negative Negative 2887-8) UROBILIN (test code = Normal Normal 5707144343) BILIRUBIN (test code = Negative Negative 7712418288) NITRITE (test code = Negative Negative 2780897280) LEUK ANTWON (test code = 500/uL Negative A 3477802221) RBC/HPF (test code = See_Comment H [Autom ated message] 5897610113) The system [employer] generated this result transmitted ref erence range: 0 - 3 HP F. The reference range was not used to int erpret this result as normal/abnormal . WBC/HPF (test code = See_Comment H [Autom ated message] 7793671128) The system [employer] generated this result transmitted ref erence range: 0 - 5 HP F. The reference range was not used to int erpret this result as normal/abnormal . BACTERIA (test code = Many Negative A 2251791308) MUCOUS (test code = Slight Negative LPF A 6522928728) SQ EPITH (test code = See_Comment H [Auto mated message] 9661175687) The system [employer] generated this result transmitted ref erence range: <=2 HPF. The reference range was not used to int erpret this result as normal/abnormal . ASCORBIC ACID (test code Negative = 9215413421) Lab Interpretation (test Abnormal code = 85795-4) [facility] RockwallType and Screen - ONCE [id number] 15:35:45 Test Item Value Reference Range Interpretation Comments ABO & RH (test code A POSITIVE Performe d at [facility] = 20) Laboratory Serv [facility] Blood [facility] [place] [address]Glvq Free: [phone] A No. [id number] IAT (test code = Negative Performed a t [facility] 1185) Laboratory Serv [facility] Blood [facility] [address] [place] [address] s [address]Dnwg Free: [phone] A No. [id number] [facility] RockwallProtein Creat Ratio Urine [id number] 15:25:07 Test Item Value Reference Range Interpretation Comments T. PROT U (test code = 2888-6) 14 mg/dL CREAT U (test code = 0192869924) 172.5 mg/dL Protein/Creatinine Ratio Urine 0.0-2.0 (test code = 6625634142) [facility] RockwallCBC with Xltyfqwlurar2719-10-68 15:14:28 Test Item Value Reference Range Interpretation Comments WBC (test code = See_Comment [Automated 2790-2) message] The sy stem which generated this result transmitted reference range : 4.30 - 11.10 10*3/?L. The reference range was not used to interpret this result as normal/abnormal . RBC (test code = See_Comment L [Automated 369-8) message] The sy stem which generated this [...] RDW-SD (test code = 40.4 fL 39.0-49.9 58629-7) RDW-CV (test code = 12.4 % 12.0-15.5 788-0) PLT (test code = See_Comment [Automated 777-3) message] The sy stem which generated this result transmitted reference range : 166 - 358 10*3/ ?L. The reference r william was not used to interpret this result as normal/abnormal . MPV (test code = 11.2 fL 9.5-12.9 30337-1) NRBC/100 WBC (test See_Comment [Automat ed code = 4060792251) message] The system which generated this result transmitted reference range : 0.0 - 10.0 /100 WBCs. The refer ence range was not u sed to interpret th is result as normal/abnormal . NRBC x10^3 (test code <0.01 See_Comment [Auto mated = 3655877829) message] The s ystem which generated this result transmitted reference range : 10*3/?L. The reference range was not used to interpret this result as normal/abnormal . GRAN MAT (NEUT) % 66.0 % (test code = 770-8) IMM GRAN % (test code 0.30 % = 7165386853) LYMPH % (test code = 24.6 % 736-9) MONO % (test code = 7.6 % 5905-5) EOS % (test code = 1.1 % 713-8) BASO % (test code = 0.4 % 706-2) GRAN MAT x10^3(ANC) 6.51 10*3/uL 1.88-7.09 (test code = 0711447638) IMM GRAN x10^3 (test 0.03 10*3/uL 0.00-0.06 code = 2928061778) LYMPH x10^3 (test code 2.43 10*3/uL 1.32-3.29 = 731-0) MONO x10^3 (test code 0.75 10*3/uL 0.33-0.92 = 742-7) EOS x10^3 (test code = 0.11 10*3/uL 0.03-0.39 711-2) BASO x10^3 (test code 0.04 10*3/uL 0.01-0.07 = 704-7) Lab Interpretation Abnormal (test code = 30592-6) [facility]wallCOVID-19 (ID NOW RAPID TESTING)2020-06-22 13:34:03 Test Item Value Reference Range Interpretation Comments SARS-CoV-2 Rapid ID NOW Not Detected Not Detected (test code = 56259-6) LORETTA (test code = LORETTA) ID NOW COVID-19 Assay is an isothermal nucleic acid amplification test intended for the qualitative detection of nucleic acid from SARS-CoV-2 viral RNA in nasopharyngeal (HR ADMINISTRATIVE ASSISTANT) specimens. It is used under Emergency Use [...] indicated. Lab Interpretation Normal (test code = 97899-5) [facility] URINALYSIS W/O SPECIFIC [id number] 21:24:00 Test Item Value Reference Range Interpretation [...] code = 3257) . Negative - Negative [facility] URINALYSIS W SPECIFIC [id number] 19:30:00 Test Item Value Reference Range Interpretation [...] POCT U APPEAR (test code = 3267) [facility] URINALYSIS W SPECIFIC [id number] 20:27:00 Test Item Value Reference Range Interpretation [...] POCT U APPEAR (test code = 3267) [facility] URINALYSIS W SPECIFIC [id number] 19:50:00 Test Item Value Reference Range Interpretation [...] POCT U APPEAR (test code = 3267) [facility] URINALYSIS W SPECIFIC [id number] 16:54:00 Test Item Value Reference Range Interpretation [...] POCT U APPEAR (test code = 3267) [facility] URINALYSIS W SPECIFIC [id number] 16:54:00 Test Item Value Reference Range Interpretation [...] POCT U APPEAR (test code = 3267) [facility] URINALYSIS W SPECIFIC [id number] 16:54:00 Test Item Value Reference Range Interpretation [...] POCT U APPEAR (test code = 3267) [facility] URINALYSIS W SPECIFIC [id number] 14:45:00 Test Item Value Reference Range Interpretation [...] POCT U APPEAR (test code = 3267) [facility] URINALYSIS W SPECIFIC [id number] 15:47:00 Test Item Value Reference Range Interpretation [...] POCT U APPEAR (test code = 3267) [facility] URINALYSIS W SPECIFIC [id number] 15:47:00 Test Item Value Reference Range Interpretation [...] POCT U APPEAR (test code = 3267) [facility] URINALYSIS W SPECIFIC [id number] 19:41:00 Test Item Value Reference Range Interpretation [...] POCT U APPEAR (test code = 3267) [facility] ONLY PAP SMEAR-LIQUID [id number] 19:55:00 Test Item Value Reference Range Interpretation Comments Case Report (test code Gynecologic Cytology ? = [id number]) ?Case: [id number] ? Authorizing Provider: ?Danish Monahan, VASHTI ? ?Collected: ? 11/26/2019 1029 ?Ordering Location: ? ? [facility]- ? Received: ?11/26/2019 2243 ? [place] ? First Screen: ?Candida, Deshaun J ? Specimen: ? ?Liquid Based Pap Preparation, CERVIX ? Clinical Information Routine Pap Smear (test code = 4107873448) Specimen Adequacy Satisfactory for (test code = 75575-3) Evaluation(Endocervical /Transformation Zone Component Absent) Interpretation (test Negative for code = 11071-7) intraepithelial lesion or malignancy LMP (test code = 0744159755) Educational Note (test j4oupWFfQZTnk2igRXVpfTY code = 5876128874) uZzEwMzNcZnRuYmpcdWMxIH rvlnAoUFejs7WiE7CuGMPkU FxhbnNpXGRlZmxhbmcxMDMz WDD6keSiNINtTLpgSEMfVPn wZp4pqUVyeZtbGyFdSYYyg3 eqtiGTufurvAw5y3fsOIPgC yT4jPXpMCvmH5kzddBhlPUc DEFuYCj4yQ16VZCpgZ5bwMB vMPbrhuPsKoC7TZnyFILsJg T5HPTwnGFcBQGuS3daPTPeK CWqV4TiKQ1wBrarFuu9UBK3 IDtccmVkMFxncmVlbjBcYmx 7KIEeX865GUF7jYiec1ioXE L0MHTcUJVbTfQhNb5exLGxN 247MENsHGLWSGMemAk2GPAm eeIhenKjzOORk368C678y3q kYDYlggIvkEcVvueab5uzY3 19XHBhcGVydzEyMjQwXHBhc DFmyMP3INPcKG7vihyeNBxb KJazHEZjbzP1QZVwrPTbE4T oLFQeNJ1ilvmlOOS9YHkvPN GySNB0PbQmUTGsn0Dmixq5W zKudd3vgf16HHR7h4KoaFdl HSZ9VYZ2QqXxYb3nsJAsDWD nXG1mAqZbxTSmZPIqbx90cD ujEIxkhpKcoG2bSjGuIIYyv LRrWCVuUL4hvWGdZNTqzA9x cmxjXHBnYnJkcmhlYWRccGd uzpYdSb6rmVqrZAP6YPevY0 ljcN4cBmE2QCyyG8yvwV9wE Id5IDitoFE6IDTzmH6tPW9b wortb0ybZQqhYJgxNQIacxQ 8kdP7WLSwtHOqV8WtyU3rZA FaCK5zwpzam6xdACQ4JOdbA NXgHKW7OdQwOYAlx3Vpxke7 FaDif7DqnBFfCZvuL28ei36 6CRDncpRxP5cfoONwmqhamZ HadalkSCphqhX2XVWaACElK WluXGYxXGZzMjJcbGFuZzEw MzNcaGljaFxmMVxkYmNoXGY dBHplP9rwUjXrF8AlELWoJy UgcUQSKPQ6dAMzrPQnzPGnm N6atNHdFCBmZMBrw9ByQXos NIWkf6XuXVLgoS7eEOJmo8L nlVZilRGtrLo0OYPydqIwsJ EwpL94tfUtOV7aFBLfLVMdN ANqoeBarQWos7LkWiFEcRCr aBShuHMjUHIpZA9ziT6pDZV dybTkZIF0ePIas2dlSKYfj9 FpHnuzrKD3RB0aBAIqoKVeE O0bN9W7oTSqIWFvRTHcMDva ZG4do9PpcRx6EAPjNMN1uRL gGhFjOmCtkHrzrkTnDV8brH bsQwQeuqNkXb1jsB33ICHvZ M9xLZWkABusvXBwehYnHJEm bM3vY2FtEYHoL67jAXHpULG nzY8emI8irjJhjpCfgyIts8 8qJL5qZZHdfG5rhRohpR8cp mUgdGhlIGVmZmVjdCBvZiBm AZmgISKkCZqkoXr3WFHzHVZ 9uXFpCmYfBC46dnUtFSSnKO 59FUGpt9GrNNTbAPAkDU0mf wDeLVX6onHbb96xyAx2EJow hUTcqK0dDBcvmHTecXVjHpE jrDTvFKqvVJKbUY4rONSrMX 55IHVuZXhwbGFpbmVkIGNsa J3fY7DeWQTqS54zKOLxMJNu eG3akH6moaposeYlKOVrvVH zcyBvZiBhbnkgUGFwIFRlc3 KrsxQoyYr1EeaayNErhkobD VxmczIyXGxhbmcxMDMzXGhp O3ppToCyKQRiiMzoLMdzt2P oXGYxXGZzMjJccGFyfX0= Embedded Images (test code = 0087866103) [facility]wallURINE [id number] 15:24:00 Test Item Value Reference Range Interpretation Comments URINE CULTURE (test 10,000 - 100,000 CFU/mL code = 630-4) mixed aerobic organisms - suggests endogenous microbial contamination [facility] RockwallTRICHOMONAS AMPLIFIED [id number] 02:22:00 Test Item Value Reference Range Interpretation Comments Trichomonas Nucleic Positive Negative A Acid (test code = 48003-8) LORETTA (test code = LORETTA) Reliable results [...] clinician. Lab Interpretation Abnormal (test code = 46059-4) [facility] RockwallGC & CHLAMYDIA AMPLIFIED [id number] 01:42:00 Test Item Value Reference Range Interpretation Comments C. trachomatis Nucleic Negative Negative Acid (test code = 42568-9) N. gonorrhoeae Nucleic Negative Negative Acid (test code = 35390-8) LORETTA (test code = LORETTA) Reliable results [...] clinician. Lab Interpretation Normal (test code = 99518-3) [facility] RockwallRUBELLA SCREEN ([place]) [id number] 15:05:00 Test Item Value Reference Range Interpretation Comments Rubella screen IgG Equivocal Negative (test code = 9117199635) LORETTA (test code = LORETTA) Positive - Indicates the patient was exposed to Rubella through infection or vaccination.Negative - Indicates the patient could be susceptible to Rubella infection.Equivocal - A second specimen should be sent. [facility] RockwallVZV ANTIBODY [id number] 15:05:00 Test Item Value Reference Range Interpretation Comments VZV IgG antibody Negative Negative (test code = 81747-6) LORETTA (test code = LORETTA) Positive - Indicates the patient was exposed to VZV through infection or vaccination.Negative - Indicates the patient could be susceptible to VZV infection.Equivocal - A second specimen should be sent for testing. [facility] ONLY - SYPHILIS [id number] 14:18:00 Test Item Value Reference Range Interpretation Comments Syphilis IgG/IgM (test Non-reactive Non-reactive code = 50543-8) LORETTA (test code = LORETTA) Non-reactive - No serologic evidence of T. pallidum infection. Cannot exclude incubating or early syphilis. Submit a second specimen in 2-4 weeks if syphilis is clinically suspected. Equivocal - Further testing to follow. Reactive - Further testing to follow. Lab Interpretation (test Normal code = 82334-2) [facility] RockwallSARS-COV-2 [id number] 06:55:00 Test Item Value Reference Range Interpretation Comments CoV-2 IgG (test code Negative Negative Negativ e result = 69020-7) does not rule o ut acute SARS-CoV- 2 infection. Clinical correlation as well as molecul ar diagnostic test are recommended to rule out acu te infection if clinically indicated. LORETTA (test code = LORETTA) This test has been approved by FDA for emergency use. Lab Interpretation Normal (test code = 78824-1) [facility] RockwallHIV 1/2 AG-AB WITH [id number] 05:55:00 Test Item Value Reference Range Interpretation Comments HIV Negative Negative Semi-quantitative (test code = 14621-1) LORETTA (test code = Non-reactive for HIV-1 LORETTA) antigen and HIV-1/HIV-2 antibodies. ?No laboratory evidence of HIV infection. ?Repeat in 2-4 weeks if acute HIV infection is suspected. [facility] RockwallPRENATAL WORKUP, BLOOD [id number] 04:31:32 Test Item Value Reference Range Interpretation Comments ABO & RH (test code A POSITIVE Performe d at [facility] = 20) Laboratory Serv [facility] Blood [facility]3 [address] [facility] s [address]Hnyf Free: [phone] A No. [id number] IAT (test code = Negative Performed a t [facility] 1185) Laboratory Serv [facility]3 [facility] s [address]Vmtg Free: [phone] A No. [id number] [facility] RockwallHEPATITIS B SURFACE [id number] 04:03:00 Test Item Value Reference Range Interpretation Comments HBsAg Semi-Quantitative (test code = Negative Negative 5195-3) [facility] [place] [facility] [id number] 03:22:00 Test Item Value Reference Range Interpretation Comments GLUC 1 HR (test code = 4962112907) 105 mg/dL 120-170 L Lab Interpretation (test code = Abnormal 25918-3) [facility] [id number] 03:08:00 Test Item Value Reference Range Interpretation Comments WBC (test code = See_Comment [Automated 2645-2) message] The sy stem which generated this result transmitted reference range : 4.30 - 11.10 10*3/?L. The reference range was not used to interpret this result as normal/abnormal . RBC (test code = See_Comment [Automated 709-8) message] The sy stem which generated this [...] (test code = 38.5 fL 39-49.9 L 23185-4) RDW-CV (test code = 11.9 % 12-15.5 L 788-0) PLT (test code = See_Comment [Automated 777-3) message] The sy stem which generated this result transmitted reference range : 166 - 358 10*3/ ?L. The reference r william was not used to interpret this result as normal/abnormal . MPV (test code = 10.5 fL 9.5-12.9 33026-5) NRBC/100 WBC (test See_Comment [Automat ed code = 4910016973) message] The system which generated this result transmitted reference range : 0.0 - 10.0 /100 WBCs. The refer ence range was not u sed to interpret th is result as normal/abnormal . NRBC x10^3 (test code <0.01 See_Comment [Auto mated = 6834911980) message] The s ystem which generated this result transmitted reference range : 10*3/?L. The reference range was not used to interpret this result as normal/abnormal . GRAN MAT (NEUT) % 58.8 % (test code = 770-8) IMM GRAN % (test code 0.30 % = 1027413744) LYMPH % (test code = 30.1 % 736-9) MONO % (test code = 8.4 % 5905-5) EOS % (test code = 1.9 % 713-8) BASO % (test code = 0.5 % 706-2) GRAN MAT x10^3(ANC) 4.31 10*3/uL 1.88-7.09 (test code = 0287250697) IMM GRAN x10^3 (test <0.03 0-0.06 code = 3395955387) LYMPH x10^3 (test code 2.21 10*3/uL 1.32-3.29 = 731-0) MONO x10^3 (test code 0.62 10*3/uL 0.33-0.92 = 742-7) EOS x10^3 (test code = 0.14 10*3/uL 0.03-0.39 711-2) BASO x10^3 (test code 0.04 10*3/uL 0.01-0.07 = 704-7) Lab Interpretation Abnormal (test code = 07727-5) [facility] [id number] 14:16:00 Test Item Value Reference Range Interpretation Comments POCT PREG (test code = 1605) Positive On board controls acceptable with C Yes Line (test code = 3574) POCT PREG LOT # (test code = 3575) POCT PREG TEST DATE (test code = 357) [facility] URINALYSIS W/O SPECIFIC [id number] 14:16:00 Test Item Value Reference Range Interpretation [...] code = 3257) neg Negative - Negative [facility] [id number] 14:16:00 Test Item Value Reference Range Interpretation Comments POCT PREG (test code = 1605) Positive On board controls acceptable with C Yes Line (test code = 3574) POCT PREG LOT # (test code = 3575) POCT PREG TEST DATE (test code = 357) [facility] URINALYSIS W/O SPECIFIC [id number] 14:16:00 Test Item Value Reference Range Interpretation [...] code = 3257) neg Negative - Negative [facility] [id number] 14:16:00 Test Item Value Reference Range Interpretation Comments POCT PREG (test code = 1605) Positive On board controls acceptable with C Yes Line (test code = 3574) POCT PREG LOT # (test code = 3575) POCT PREG TEST DATE (test code = 3576) [facility] URINALYSIS W/O SPECIFIC [id number] 14:16:00 Test Item Value Reference Range Interpretation [...] code = 3257) neg Negative - Negative [facility] BHCG (QUANTITATIVE)2019-11-12 23:17:00 Test Item Value Reference Range Interpretation Comments BETA HCG (test See_Comment [Automated m essage] code = The system [employer] h 8562071447) generated this result transmit vilma reference range : Non- fe male and male patien ts: <5 mIU/mL. The reference range was not used to interpret this result as normal/abnormal . LORETTA (test code Gestational Age ? ? = LORETTA) ?Range (mIU/mL) 1-10 ?Weeks ?64-55826931-57 Weeks ?30428-57441275-06 Weeks ?9984-52102538-27 Weeks ?7205-667956 Biotin has been reported to cause a negative bias, interpret results relative to patient's use of biotin. [facility]. METABOLIC PANEL (35756)2019-11-12 21:27:00 Test Item Value Reference Range Interpretation Comments NA (test code = 137 mmol/L 135-145 4220566670) K (test code = 4.3 mmol/L 3.5-5 5768356723) CL (test code = 103 mmol/L 98-108 9723537649) CO2 TOTAL (test code = 25 mmol/L 23-31 2798515219) AGAP (test code = 2-16 2446989037) BUN (test code = 11 mg/dL 7-23 0780638212) GLUCOSE (test code = 90 mg/dL 70-110 4010696170) CREATININE (test code = 0.54 mg/dL 0.5-1.04 4740302561) TOTAL BILI (test code = 0.4 mg/dL 0.1-1.3 3185814746) CALCIUM (test code = 9.4 mg/dL 8.6-10.6 7791878493) T PROTEIN (test code = 7.1 g/dL 6.3-8.2 5851142049) ALBUMIN (test code = 4.2 g/dL 3.5-5 9585992314) ALK PHOS (test code = 29 U/L 34-122 L 4705829874) ALTv (test code = 14 U/L 5-35 1742-6) AST(SGOT) (test code = 21 U/L 13-40 8740703246) eGFR Calculation mL/min/1.73m2 (Non-) (test code = 9015476565) eGFR Calculation mL/min/1.73m2 () (test code = 0566142149) LORETTA (test code = LORETTA) Association of [...] tests). Lab Interpretation Abnormal (test code = 31909-2) [facility] 21:27[facility]00 Test Item Value Reference Range Interpretation Comments APPEARANCE (test code = Clear Clear 7723279943) COLOR (test code = Straw Yellow A 1915750277) PH (test code = 4.8-8.0 4667690413) SP GRAVITY (test code = 1.003-1.030 6816513410) GLU U QUAL (test code = Normal Normal 6407409653) BLOOD (test code = Negative Negative 6327075892) KETONES (test code = Negative Negative 7742136983) PROTEIN (test code = Negative Negative 2887-8) UROBILIN (test code = Normal Normal 7439162638) BILIRUBIN (test code = Negative Negative 6656797548) NITRITE (test code = Negative Negative 8190096084) LEUK ANTWON (test code = Negative Negative 5205715476) RBC/HPF (test code = See_Comment [Autom ated message] 5856315769) The system [employer] generated this result transmitted ref erence range: 0 - 3 HP F. The reference range was not used to int erpret this result as normal/abnormal . WBC/HPF (test code = See_Comment [Autom ated message] 8472974931) The system [employer] generated this result transmitted ref erence range: 0 - 5 HP F. The reference range was not used to int erpret this result as normal/abnormal . BACTERIA (test code = Negative Negative 2535995142) SQ EPITH (test code = HPF 7816524316) Lab Interpretation (test Abnormal code = 07850-0) [facility] 21:26:00 Test Item Value Reference Range Interpretation Comments LIPASE (test code = 9732056319) 51 U/L 0-220 Lab Interpretation (test code = Normal 41894-0) [facility] WITH [id number] 21:22:00 Test Item Value Reference Range Interpretation Comments WBC (test code = See_Comment [Automated message] 6690-2) The system [employer] generated this result transmitted ref erence range: 4.30 - 1 1.10 10*3/?L. The re ference range was not u sed to interpret this result as normal/abnor mal. RBC (test code = See_Comment [Automated message] 789-8) The system [employer] generated this result transmitted ref erence range: [...] RDW-SD (test code 39.9 fL 39-49.9 = 61816-8) RDW-CV (test code 12.0 % 12-15.5 = 788-0) PLT (test code = See_Comment [Automated message] 197-3) The system [employer] generated this result transmitted ref erence range: 166 - 35 8 10*3/?L. The re ference range was not u sed to interpret this result as normal/abnor mal. MPV (test code = 10.2 fL 9.5-12.9 81102-7) NRBC/100 WBC (test See_Comment [Automat ed message] code = 1192467373) The [employer] which generated this result transmitted ref erence range: 0.0 - 10 .0 /100 WBCs. The refer ence range was not u sed to interpret this result as normal/abnor mal. NRBC x10^3 (test <0.01 See_Comment [Automated message] code = 2108934230) The syste m which generated this result transmitted ref erence range: 10*3/?L. The reference range was not used to interpr et this result as normal/abnormal . GRAN MAT (NEUT) % 58.1 % (test code = 770-8) IMM GRAN % (test 0.30 % code = 9522036501) LYMPH % (test code 30.8 % = 736-9) MONO % (test code 9.2 % = 5905-5) EOS % (test code = 1.1 % 713-8) BASO % (test code 0.5 % = 706-2) GRAN MAT 3.77 10*3/uL 1.88-7.09 x10^3(ANC) (test code = 6142386450) IMM GRAN x10^3 <0.03 0-0.06 (test code = 8515875982) LYMPH x10^3 (test 2.00 10*3/uL 1.32-3.29 code = 731-0) MONO x10^3 (test 0.60 10*3/uL 0.33-0.92 code = 742-7) EOS x10^3 (test 0.07 10*3/uL 0.03-0.39 code = 711-2) BASO x10^3 (test 0.03 10*3/uL 0.01-0.07 code = 704-7) [facility] [id number] 20:51:00 Test Item Value Reference Range Interpretation Comments POCT PREG (test code = 1605) positive POCT PREG LOT # (test code = 3575) [id number] POCT PREG TEST DATE (test 10/21/2020 code = 3576) Lab Interpretation (test code = Normal 27794-4) [facility] Abdomen and Pelvis w/ [id number] 10:21:19Patient: SAMPSON HOLLINGSWORTH Date/Time07/27/201710:00 CDTReason for ExamAbdominal [...] or free fluid. Final Dictated by: MD Collier Eniola FDictated DT/TM: 07/27/2017 10:16 amSigned by: MD Collier Eniola FSigned (Electronic Signature): 07/27/2017 10:21 am 78909&PELVIS W/[id number] 06:43:42CT OF THE ABDOMEN AND PELVIS WITH [...] code = Clear Clear N CLAR) Specific [place] (test 1.032 1.001-1.035 N code = SPGR) [...] code = Few /HPF BACT) CBC with [id number] 05:42:00 Test Item Value Reference Range Interpretation [...] code = ALYMPH) 2.6 K/cumm 0.5-4.6 N Crisp Abs (test code = AMONO) 0.6 K/cumm 0.0-1.2 N Eos Abs (test code = AEOS) 0.24 K/cumm 0.00-0.74 N Baso Abs (test code = ABASO) 0.0 K/cumm 0.00-0.21 N BHCG, Serum, [id number] 05:28:00 Test Item Value Reference Range Interpretation Comments Preg Qual [Se] (test code = BSHCG) Negative Negative N Comprehensive Metabolic [id number] 05:28:00 Test Item Value Reference Range Interpretation [...] by the National Kidney Foundation,http ://nkd ep.nih.gov [id number] 05:24:00 Test Item Value Reference Range Interpretation Comments Lipase (test code = LIP) 25 U/L 13-60 N 13301& PELVIS W/O [id number] 20:05:31LOCATION: S 17HISTORY: 16-year-old female who presents [...] pelvis in thisunenhanced CT study is unremarkable.Urinalysis [id number] 19:34:00 Test Item Value Reference Range Interpretation Comments Color (test code = COLOR) Yellow Yellow,Straw,Pl N yellow Clarity (test code = Clear Clear N CLAR) Specific [place] (test 1.023 1.001-1.035 N code = SPGR) [...] code = Few /HPF BACT) Comprehensive Metabolic [id number] 19:16:00 Test Item Value Reference Range Interpretation [...] validated by th e MDRD study and dmitri chacon be interpretedwith caution.eGFR Re sult Interpretation: eGFR > or = 60 is in t he Normal RangeeGF R < 60 may mean kidney diseaseeGFR < 1 5 may mean kidney failureRange s recommended by the National Kidney Foundation,http ://nkd ep.nih.gov [id number] 19:16:00 Test Item Value Reference Range Interpretation Comments Lipase (test code = LIP) 24 U/L 13-60 N BHCG, Serum, [id number] 19:10:00 Test Item Value Reference Range Interpretation Comments Preg Qual [Se] (test code = BSHCG) Negative Negative N CBC with [id number] 18:53:00 Test Item Value Reference Range Interpretation [...] code = ALYMPH) 1.8 K/cumm 0.5-4.6 N Crisp Abs (test code = AMONO) 0.3 K/cumm 0.0-1.2 N Eos Abs (test code = AEOS) 0.19 K/cumm 0.00-0.74 N Baso Abs (test code = ABASO) 0.0 K/cumm 0.00-0.21 N Urinalysis [id number] 18:49:00 Test Item Value Reference Range Interpretation Comments Color (test code = [place] Yellow,Straw,Pl A COLOR) yellow Clarity (test code = Sl Cloudy Clear A CLAR) Specific [place] (test 1.012 1.001-1.035 N code = SPGR) [...] code = Few /HPF BACT) BHCG, Urine, [id number] 18:48:00 Test Item Value Reference Range Interpretation Comments Preg Qual [Ur] (test code = HUHCG) Negative Negative N"
--- NOTE | 2021-02-04 20:38 | ER ---
Nurse's Notes [facility] Name: Joana Aguirre Age: 21 yrs Sex: Female : 2000 Arrival Date: 02/04/2021 Time: 18:23 Bed 20 Private MD: Diagnosis: Presentation: 02/04 18:37 Chief complaint: Patient states: Dizziness off/on since 14 y/o. Got worse after June 23 ll1 after having her last baby. Severe GAFFNEY when this happens. Coronavirus screen: Vaccine status: Patient reports being unvaccinated. Client denies travel out of the [place] in the last 14 days. At this time, the client does not indicate any symptoms associated with coronavirus-19. Ebola Screen: Patient denies travel to an Ebola-affected area in the 21 days before illness onset. Initial Sepsis Screen: Does the patient meet any 2 criteria? No. Patient's initial sepsis screen is negative. Does the patient have a suspected source of infection? No. Patient's initial sepsis screen is negative. Risk Assessment: Do you want to hurt yourself or someone else? Patient reports no desire to harm self or others. Onset of symptoms was June 25, 2020. 18:37 Method Of Arrival: Ambulatory ll1 18:37 Acuity: RICH 3 ll1 Historical: - Allergies: 18:40 No Known Allergies; ll1 - PMHx: 18:40 Hypertensive disorder; ll1 - PSHx: 18:40 section; ll1 - Immunization history:: Client reports having NOT received the Covid vaccine. Flu vaccine is not up to date. - Social history:: Smoking status: Patient reports the use of cigarette tobacco products, denies chronic smoking, but will smoke occasionally. Assessment: 20:37 Reassessment: Called from [employer]. No response. 5 Vital Signs: 18:37 BP 130 / 78; Pulse 84; Resp 16; Temp 97.2; Pulse Ox 100% ; Weight 85.28 kg; Height 5 ll1 ft. 1 in. (154.94 cm); Pain 4/10; 18:37 Body Mass Index 35.52 (85.28 kg, 154.94 cm) ll1 ED Course: 18:23 Patient arrived in ED. as 18:40 Triage completed. ll1 18:41 Arm band placed on. ll1 20:33 Nevarez, Setul, MD is Attending Physician. sp3 Administered Medications: No medications were administered Outcome: 20:37 Patient left the ED. jh5 Signatures: Abby Allison Lynsay, RN RN ll1 Chris Nevarez MD MD sp3 Caitlyn Hernandez RN RN jh5
[2021-02-04 21:05] VITALS: BP 130/78; TEMP 97.2; O2SAT 100
== END 2021-02-04 20:37 | disposition left against medical advice (07) ==
LOC: ER 18:20
DX: R42 Dizziness and giddiness (principal); Z53.21 Procedure and treatment not carried out due to patient leaving prior to being seen by health care provider
CPT/HCPCS: 99281

== ENCOUNTER 2021-04-13 16:56 | Emergency (ER) | payer OTHER ==
--- NOTE | 2021-04-13 17:34 | EDPHYS ---
Physician Documentation [facility] Name: Joana Aguirre Age: 21 yrs Sex: Female : 2000 Arrival Date: 04/13/2021 Time: 16:59 Bed 9 Private MD: ED Physician Sid Hall HPI: 04/13 17:32 This 21 yrs old Female presents to ER via Ambulatory with complaints of Ear Pain. kb 17:32 The patient presents with pain, moderate. The complaints affect the right ear. Onset: kb The symptoms/episode began/occurred 3 day(s) ago, and became worse. Modifying factors: The symptoms are alleviated by nothing, the symptoms are aggravated by nothing. Associated signs and symptoms: The patient has no apparent associated signs or symptoms. Severity of symptoms: At their worst the symptoms were moderate severe in the emergency department the symptoms are unchanged. The patient has not experienced similar symptoms in the past. The patient has not recently seen a physician. Pt reports stinging to right ear for a few days, today the pain became severe after feeling a pop in ear. States it is difficult to hear now. . CENTER DIRECTOR: 18:18 LMP N/A - kd3 Historical: - Allergies: 17:25 No Known Allergies; ph - PMHx: 17:25 Hypertensive disorder; ph - PSHx: 17:25 section; ph - Immunization history:: Adult Immunizations unknown. - Social history:: Smoking status: Patient reports the use of cigarette tobacco products, denies chronic smoking, but will smoke occasionally. ROS: 17:32 Constitutional: Negative for fever, chills, and weight loss. kb 17:32 ENT: Positive for ear pain. 17:32 All other systems are negative. Exam: 17:32 Constitutional: This is a well developed, well nourished patient who is awake, alert, kb and in no acute distress. Head/Face: Normocephalic, atraumatic. Cardiovascular: Regular rate and rhythm with a normal S1 and S2. No gallops, murmurs, or rubs. No pulse deficits. Respiratory: Respirations even and unlabored. No increased work of breathing. Talking in full sentences Skin: Warm, dry with normal turgor. Normal color. MS/ Extremity: Pulses equal, no cyanosis. Neurovascular intact. Full, normal range of motion. Neuro: Awake and alert, GCS 15, oriented to person, place, time, and situation. Moves all extremities. Normal gait. Psych: Awake, alert, with orientation to person, place and time. Behavior, mood, and affect are within normal limits. 17:32 ENT: External ear(s): are unremarkable, Ear canal(s): erythema, that is severe, of the right canal, TM's: bulging, on the right. Vital Signs: 17:23 BP 146 / 99; Pulse 86; Resp 18; Temp 98.4; Pulse Ox 100% on R/A; ph MDM: 17:29 Patient medically screened. kb 17:32 Data reviewed: vital signs, nurses notes. Data interpreted: Pulse oximetry: on room air kb is 100 %. Interpretation: normal. Counseling: I had a detailed discussion with the patient and/or guardian regarding: the historical points, exam findings, and any diagnostic results supporting the discharge/admit diagnosis, the need for outpatient follow up, a family practitioner, to return to the emergency department if symptoms worsen or persist or if there are any questions or concerns that arise at home. Administered Medications: 17:37 Drug: HYDROcodone-acetaminophen 5 mg-325 mg 1 tabs Route: PO; ke1 18:19 Follow up: Response: No adverse reaction kd3 Disposition Summary: 04/13/21 17:34 Discharge Ordered Location: Home kb Condition: Stable kb Diagnosis - Otitis media, unspecified, right ear kb - Other otitis externa, right ear kb Followup: kb - With: Emergency Department - When: As needed - Reason: Worsening of condition Followup: kb - With: Private Physician - When: 2 - 3 days - Reason: Recheck today's complaints, Continuance of care, Re-evaluation by your physician Discharge Instructions: - Discharge Summary Sheet kb - Otitis Externa, Boob-qj-Jxcq kb - Otitis Media, Adult, Nhgn-dj-Gbmb kb - Ear Drops, Adult, Qgvg-sf-Vqrq kb Forms: - Medication Reconciliation Form kb - Thank You Letter kb - Antibiotic Education kb - Prescription Opioid Use kb Prescriptions: - Amoxicillin 875 mg Oral Tablet - take 1 tablet by ORAL route every 12 hours for 10 days; 20 tablet; Refills: 0, kb Product Selection Permitted - Ciprodex 0.3-0.1 % Otic Drops, Suspension - instill 4 drops by OTIC route every 12 hours for 7 days , for ears ONLY; 1 kb Container; Refills: 0, Product Selection Permitted Signatures: Stephanie Pierson, Andressa Ayala, RN RN ph Jewels Campos RN RN ke1 Melissa Bunn RN kd3
--- NOTE | 2021-04-13 17:34 | ER ---
Nurse's Notes [facility] Name: Joana Aguirre Age: 21 yrs Sex: Female : 2000 Arrival Date: 04/13/2021 Time: 16:59 Bed 9 Private MD: Diagnosis: Otitis media, unspecified, right ear;Other otitis externa, right ear Presentation: 04/13 17:23 Chief complaint: Patient states: R ear pain that began after coughing, states, " It was ph fine, then I coughed and it popped. Now it really hurts and I can't hear." Pt tearful in triage, states that she was seen at [facility] today for cough, covid test pending. Coronavirus screen: Vaccine status: Patient reports being unvaccinated. Ebola Screen: No symptoms or risks identified at this time. Initial Sepsis Screen: Does the patient meet any 2 criteria? No. Patient's initial sepsis screen is negative. Does the patient have a suspected source of infection? No. Patient's initial sepsis screen is negative. Risk Assessment: Do you want to hurt yourself or someone else? Patient reports no desire to harm self or others. Onset of symptoms was April 13, 2021. 17:23 Method Of Arrival: Ambulatory 17:23 Acuity: RICH 4 ph Triage Assessment: 18:18 General: Appears uncomfortable, Behavior is calm, cooperative. Pain: Complains of pain kd3 in right ear. EENT: Reports pain in right ear. Neuro: No deficits noted. Cardiovascular: No deficits noted. Respiratory: No deficits noted. GI: No deficits noted. : No deficits noted. Derm: No deficits noted. Musculoskeletal: No deficits noted. [employer] SAL[employer]: 18:18 LMP N/A - kd3 Historical: - Allergies: 17:25 No Known Allergies; ph - PMHx: 17:25 Hypertensive disorder; ph - PSHx: 17:25 section; ph - Immunization history:: Adult Immunizations unknown. - Social history:: Smoking status: Patient reports the use of cigarette tobacco products, denies chronic smoking, but will smoke occasionally. Screenin:17 Abuse screen: Denies threats or abuse. Denies injuries from another. Nutritional kd3 screening: No deficits noted. Tuberculosis screening: No symptoms or risk factors identified. Fall Risk None identified. Vital Signs: 17:23 BP 146 / 99; Pulse 86; Resp 18; Temp 98.4; Pulse Ox 100% on R/A; ph ED Course: 16:59 Patient arrived in ED. mr 17:25 Triage completed. ph 17:25 Arm band placed on. ph 17:27 Melissa Bunn, RN is Primary Nurse. kd3 17:29 Stephanie Pierson FNP-C is [facility]. kb 17:29 Sid Hall MD is Attending Physician. kb 18:17 Patient has correct armband on for positive identification. Bed in low position. Call kd3 light in reach. Side rails up X2. 18:17 No provider procedures requiring assistance completed. Patient did not have IV access kd3 during this emergency room visit. Administered Medications: 17:37 Drug: HYDROcodone-acetaminophen 5 mg-325 mg 1 tabs Route: PO; ke1 18:19 Follow up: Response: No adverse reaction kd3 Outcome: 17:34 Discharge ordered by MD. kb 18:17 Discharged to home ambulatory. kd3 18:17 Condition: stable 18:17 Discharge instructions given to patient. 18:19 Patient left the ED. kd3 Signatures: Stephanie Pierson FNP-C FNP-Fredrick Marsha DavidAndressa RN RN Melissa Bunn, RN RN kd3 Jewels Campos RN RN ke1
[2021-04-13] MEDS ORDERED: HYDROCODONE/APAP 5/325 MG TAB ONE (17:39)
[2021-04-13 19:27] VITALS: BP 146/99; TEMP 98.4; O2SAT 100
== END 2021-04-13 18:19 | disposition home or self-care (01) ==
LOC: ER 16:56
DX: H66.91 Otitis media, unspecified, right ear (principal); H60.8X1 Other otitis externa, right ear; I10 Essential (primary) hypertension; F17.210 Nicotine dependence, cigarettes, uncomplicated
CPT/HCPCS: 99283